=== PATIENT | male | born 1995 | race African-American/Black ===

== ENCOUNTER 2017-07-08 12:05 | Emergency (ER) | payer OTHER ==
[2017-07-08 12:43] VITALS: BP 142/63; PULSE 78; RESP 18; TEMP 99
[2017-07-08] MEDS ORDERED: PROPARACAINE 0.5% OPHTH DROPS 15 ML BTL LEFT EYE STA (12:47)
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
== END 2017-07-08 13:33 | disposition home or self-care (01) ==
LOC: EC 12:05
DX: H20.9 Unspecified iridocyclitis (principal); F17.200 Nicotine dependence, unspecified, uncomplicated
CPT/HCPCS: 99283

== ENCOUNTER 2018-12-10 19:39 | Inpatient (IN) | payer OTHER ==
[2018-12-10] MEDS ORDERED: SODIUM CHLORIDE 0.9% 500 ML 500 ML IV STA (19:41)
[2018-12-10] MEDS ORDERED: SODIUM CHLORIDE 0.9% 1,000 ML IV STA ×2 (19:41)
[2018-12-10] MEDS ORDERED: LORazepam 2 MG/ML INJ IV STA (19:41)
--- NOTE | 2018-12-10 19:50 | ED ---
Seizure HPI - General Chief Complaint: Seizure Stated Complaint: Seizure, Alcohol Time Seen by Provider: 12/10/18 19:39 Source: patient, EMS, RN notes reviewed Mode of arrival: EMS Limitations: no limitations - History of Present Illness Initial Comments: This is a 23-year-old male with a history of alcoholism since age of age 11 who apparently had a witnessed seizure today lasting 5-10 minutes. He did hit his head against a wall he did bite his tongue he was initially confused upon first contact with paramedics. He has become more cognizant since arrival here per paramedics. He does drink 4-5 beers cc per day he does state he has nausea right now he states when he stops drinking he gets really nauseated and then when he starts to get it goes away. He states he's never had a seizure before. This a glucose 131 this will blood pressure 135/84. He is awake alert and oriented except he does not currently know the year. He has a drug use. MD Complaint: seizure - Related Data Home Medications Medication Instructions Recorded Confirmed No Known Home Medications 12/10/18 12/10/18 Allergies Allergy/AdvReac Type Severity Reaction Status Date / Time No Known Allergies Allergy Verified 12/10/18 19:59 Review of Systems ROS Statement: Those systems with pertinent positive or pertinent negative responses have been documented in the HPI. ROS Other: All systems not noted in ROS Statement are negative. Past Medical History Past Medical History: No Reported History History of Any Multi-Drug Resistant Organisms: None Reported Past Surgical History: No Surgical Hx Reported Past Psychological History: No Psychological Hx Reported Smoking Status: Current some day smoker Past Alcohol Use History: Heavy Past Drug Use History: None Reported General Exam - General Exam Comments Initial Comments: This a well-developed well-nourished awake alert male he does have a cervical collar in place Limitations: no limitations General appearance: alert, anxious Head exam: Present: atraumatic, normocephalic, normal inspection Eye exam: Present: normal appearance, PERRL, EOMI. Absent: scleral icterus, conjunctival injection, periorbital swelling ENT exam: Present: mucous membranes dry (He does have evidence of abrasions to the tip of his tongue.), mucous membranes moist Neck exam: Present: normal inspection, other (Cervical collar place no tenderness palpation). Absent: tenderness, meningismus, lymphadenopathy Respiratory exam: Present: normal lung sounds bilaterally. Absent: respiratory distress, wheezes, rales, rhonchi, stridor Cardiovascular Exam: Present: regular rate, normal rhythm, normal heart sounds. Absent: systolic murmur, diastolic murmur, rubs, gallop, clicks GI/Abdominal exam: Present: soft, normal bowel sounds. Absent: distended, tenderness, guarding, rebound, rigid Extremities exam: Present: normal inspection, full ROM, normal capillary refill. Absent: tenderness, pedal edema, joint swelling, calf tenderness Back exam: Present: normal inspection Neurological exam: Present: alert, oriented X3, CN II-XII intact, other (Him tremor noted). Absent: motor sensory deficit Psychiatric exam: Present: normal affect, normal mood Skin exam: Present: warm, dry, intact, normal color. Absent: rash Course Vital Signs 12/10/18 12/10/18 12/10/18 19:41 20:10 21:24 Temperature 97.8 F Pulse Rate 68 63 72 Respiratory 16 16 Rate Blood Pressure 132/84 112/73 O2 Sat by Pulse 100 100 100 Oximetry 12/10/18 22:11 Temperature Pulse Rate 78 Respiratory 16 Rate Blood Pressure 114/80 O2 Sat by Pulse 99 Oximetry Medical Decision Making - Medical Decision Making I did review the findings with the patient I did reevaluate him on several occasions he still demonstrate some tremors he will be admitted for alcohol withdrawal. I did discuss case with Dr. Kamara - Lab Data Result diagrams: 12/10/18 19:45 12/10/18 19:45 Lab Results 12/10/18 12/10/18 12/10/18 Range/Units 19:45 19:45 20:53 WBC 7.9 (3.8-10.6) k/uL RBC 4.12 L (4.30-5.90) m/uL Hgb 14.1 (13.0-17.5) gm/dL Hct 45.2 (39.0-53.0) % MCV 109.7 H (80.0-100.0) fL MCH 34.4 (25.0-35.0) pg MCHC 31.3 (31.0-37.0) g/dL RDW 12.3 (11.5-15.5) % Plt Count 142 L (150-450) k/uL Neutrophils % 68 % Lymphocytes % 21 % Monocytes % 7 % Eosinophils % 1 % Basophils % 1 % Neutrophils # 5.3 (1.3-7.7) k/uL Lymphocytes # 1.7 (1.0-4.8) k/uL Monocytes # 0.5 (0-1.0) k/uL Eosinophils # 0.1 (0-0.7) k/uL Basophils # 0.1 (0-0.2) k/uL Macrocytosis Moderate Sodium 139 (137-145) mmol/L Potassium 3.7 (3.5-5.1) mmol/L Chloride 98 (98-107) mmol/L Carbon Dioxide 17 L (22-30) mmol/L Anion Gap 24 mmol/L BUN 4 L (9-20) mg/dL Creatinine 0.75 (0.66-1.25) mg/dL Est GFR (CKD-EPI)AfAm >90 (>60 ml/min/1.73 sqM) Est GFR (CKD-EPI)NonAf >90 (>60 ml/min/1.73 sqM) Glucose 153 H (74-99) mg/dL Calcium 10.4 H (8.4-10.2) mg/dL Phosphorus 3.9 (2.5-4.5) mg/dL Magnesium 2.0 (1.6-2.3) mg/dL Total Bilirubin 1.0 (0.2-1.3) mg/dL AST 174 H (17-59) U/L ALT 107 H (21-72) U/L Alkaline Phosphatase 120 (38-126) U/L Total Protein 8.7 H (6.3-8.2) g/dL Albumin 5.5 H (3.5-5.0) g/dL Urine Color Yellow Urine Appearance Clear (Clear) Urine pH 7.0 (5.0-8.0) Ur Specific [place] 1.017 (1.001-1.035) Urine Protein 2+ H (Negative) Urine Glucose (UA) Negative (Negative) Urine Ketones 2+ H (Negative) Urine Blood Trace H (Negative) Urine Nitrite Negative (Negative) Urine Bilirubin Negative (Negative) Urine Urobilinogen 2.0 (<2.0) mg/dL Ur Leukocyte Esterase Negative (Negative) Urine RBC <1 (0-5) /hpf Urine WBC 1 (0-5) /hpf Urine Mucus Rare H (None) /hpf Salicylates <1.0 mg/dL Urine Opiates Screen Not Detected (NotDetected) Ur Oxycodone Screen Not Detected (NotDetected) Urine Methadone Screen Not Detected (NotDetected) Ur Propoxyphene Screen Not Detected (NotDetected) Acetaminophen <10.0 ug/mL Ur Barbiturates Screen Not Detected (NotDetected) U Tricyclic Antidepress Not Detected (NotDetected) Ur Phencyclidine Scrn Not Detected (NotDetected) Ur Amphetamines Screen Not Detected (NotDetected) U Methamphetamines Scrn Not Detected (NotDetected) U Benzodiazepines Scrn Not Detected (NotDetected) Urine Cocaine Screen Not Detected (NotDetected) U Marijuana (THC) Screen Not Detected (NotDetected) - EKG Data -: EKG Interpreted by Me (E[place] 41119 QRS duration 88 QT since QTC 434/451 LV) - Radiology Data Radiology results: report reviewed (I did review the imaging and report no acute findings.), image reviewed Disposition Clinical Impression: Alcohol withdrawal seizure, Abrasion of tongue Disposition: ADMITTED IP TO THIS [facility] Condition: Stable Referrals: Fred Richardson MD [Primary Care Provider] - 1-2 days
[2018-12-10 20:24] LABS: ALT 107 U/L (21-72); Acetaminophen <10.0 ug/mL; Albumin 5.5 g/dL (3.5-5.0); Alkaline Phosphatase 120 U/L (38-126); Anion Gap 24 mmol/L; Blood Urea Nitrogen 4 mg/dL (9-20); Calcium 10.4 mg/dL (8.4-10.2); Carbon Dioxide 17 mmol/L (22-30); Chloride 98 mmol/L (98-107); Glucose 153 mg/dL (74-99); Phosphorus 3.9 mg/dL (2.5-4.5); Potassium 3.7 mmol/L (3.5-5.1); Salicylate <1.0 mg/dL; Sodium 139 mmol/L (137-145); Total Protein 8.7 g/dL (6.3-8.2)
[2018-12-10 20:30] LABS: AST 174 U/L (17-59)
[2018-12-10 20:41] LABS: Basophils # (A) 0.1 k/uL (0-0.2); Basophils % (A) 1 %; Eosinophils # (A) 0.1 k/uL (0-0.7); Eosinophils % (A) 1 %; HCT 45.2 % (39.0-53.0); HGB 14.1 gm/dL (13.0-17.5); Lymphocytes # (A) 1.7 k/uL (1.0-4.8); Lymphocytes % (A) 21 %; MCH 34.4 pg (25.0-35.0); MCHC 31.3 g/dL (31.0-37.0); MCV 109.7 fL (80.0-100.0); Macrocytosis Moderate; Mean Platelet Volume 8.4; Monocytes # (A) 0.5 k/uL (0-1.0); Monocytes % (A) 7 %; Neutrophils # (A) 5.3 k/uL (1.3-7.7); Neutrophils % (A) 68 %; Platelet Count 142 k/uL (150-450); RBC 4.12 m/uL (4.30-5.90); RDW 12.3 % (11.5-15.5); WBC 7.9 k/uL (3.8-10.6)
--- NOTE | 2018-12-10 21:15 | CT ---
EXAMINATION TYPE: CT brain guillermina ayers con DATE OF EXAM: 12/10/2018 COMPARISON: None HISTORY: seizure CT DLP: 1225.1 mGycm Automated exposure control for dose reduction was used. TECHNIQUE: CT scan of the head and cervical spine are performed without contrast. FINDINGS: Ventricles and sulci appear normal. There is no mass effect nor midline shift. There is n o sign of intracranial hemorrhage. The calvarium is intact. There is no evidence of cerebral edema. The cervical vertebra have fairly normal spacing and alignment. Posterior elements are intact. Prever tebral soft tissues appear normal. Skull base is intact. Facet joints are intact. IMPRESSION: Negative CT scan of the brain. Negative CT scan cervical spine.
[2018-12-10 21:18] LABS: Appearance,Urine Clear (Clear); Bilirubin,Urine Negative (Negative); Blood,Urine Trace (Negative); Color,Urine Yellow; Glucose,Urine (UA) Negative (Negative); Ketones,Urine 2+ (Negative); Leukocyte Esterase,Urine Negative (Negative); Mucus,Urine Rare /hpf; Nitrite,Urine Negative (Negative); Protein,Urine 2+ (Negative); RBC,Urine <1 /hpf (0-5); Specific Gravity,Urine 1.017 (1.001-1.035); WBC,Urine 1 /hpf (0-5)
[2018-12-10 21:23] LABS: Amphetamine Screen,Urine Not Detected (NotDetected); Barbiturate Screen,Urine Not Detected (NotDetected); Benzodiazepines Screen,Urine Not Detected (NotDetected); Cocaine Screen,Urine Not Detected (NotDetected); Methadone Screen, Urine Not Detected (NotDetected); Opiate Screen,Urine Not Detected (NotDetected); Oxycodone Screen, Urine Not Detected (NotDetected); Phencyclidine Screen,Urine Not Detected (NotDetected); Tricyclic Antidepressant,Urine Not Detected (NotDetected); Urn Cannabinoid Scrn Not Detected (NotDetected)
[2018-12-10] MEDS ORDERED: ONDANSETRON 4 MG/2 ML VIAL IVP PRN (22:38)
[2018-12-10] MEDS ORDERED: NALOXONE 0.4 MG/ML 1 ML VIAL IV PRN (22:38)
[2018-12-10] MEDS ORDERED: LORazepam 2 MG/ML INJ IV PRN ×2 (22:40)
[2018-12-10] MEDS ORDERED: THIAMINE 100 MG/ML 2 ML VIAL IM STA (22:40)
[2018-12-10] MEDS: THIAMINE 100 MG TAB PO SCH (23:30)
[2018-12-11 00:17] VITALS: BMI 21.4
[2018-12-11] MEDS: LORazepam 2 MG/ML INJ IV PRN ×3 (00:17→23:19)
[2018-12-11] MEDS: SODIUM CHLORIDE 0.9% 1,000 ML IV SCH ×2 (00:20→20:22)
[2018-12-11] MEDS: ACETAMINOPHEN TAB 325 MG TAB PO PRN ×2 (03:25→13:17)
[2018-12-11] MEDS ORDERED: SODIUM CHLORIDE 0.9% 1,000 ML with MVI, ADULT NO.4 WITH VIT K 10 ML, THIAMINE 100 MG, F... IV ONE ×4 (12:06)
[2018-12-11] MEDS ORDERED: LORazepam 2 MG/ML INJ IV PRN (12:07)
--- NOTE | 2018-12-11 12:14 | P.HPIM ---
History of Present Illness This is a pleasant 23 years old male with no significant past medical history who presents as of seizure. Patient states that he drinks about 4-7 beers a day and he was trying to quit last couple days. And each time he got LOC shakiness and become uncomfortable. Yesterday he would develop a seizure, witnessed by his girlfriend which states it was generalized tonic-clonic seizures lasted about 5-10 minutes and followed by post ictal confusion. During which time the patient bit his tongue on the right side but with no urine or bowel incontinence. Patient states also he smokes about 3 cigarettes per day and he wants to quit after counseling him wanting nicotine patch. He denies using's other substances like no marijuana, cocaine on her weaning. However he agrees to give urine sample for urine drug screen. After the seizure patient has left shoulder pain without numbness or weakness in his left upper extremity and pulsation is intact. Patient could raise his left arm above his shoulder however he has tenderness in the right shoulder area, with no apparent deformity. On admission he had negative computed tomography scan of the brain and the cervical spine for acute event as per radiology report. EKG: Normal sinus rhythm at 65. CBC and BMP were unremarkable. Mildly elevated liver enzymes. She denies history of seizure, and his never been on antiseizure medication. Patient states that he has mild depression, without suicidal or homicidal ideation. No hallucination. Also patient denies chest pain or dyspnea Review of Systems CONSTITUTIONAL: No fever, no malaise, no fatigue. HEENT: No recent visual problems or hearing problems. Denied any sore throat. CARDIOVASCULAR: No orthopnea, PND, no palpitations, no syncope. PULMONARY: No shortness of breath, no cough, no hemoptysis. GASTROINTESTINAL: No diarrhea, no nausea, no vomiting, no abdominal pain. Normoactive bowel sounds. NEUROLOGICAL: No headaches, no weakness, no numbness. HEMATOLOGICAL: Denies any bleeding or petechiae. GENITOURINARY: Denies any burning micturition, frequency, or urgency. MUSCULOSKELETAL/RHEUMATOLOGICAL: Denies any joint pain, swelling, or any muscle pain. ENDOCRINE: Denies any polyuria or polydipsia. Past Medical History Past Medical History: No Reported History History of Any Multi-Drug Resistant Organisms: None Reported Past Surgical History: No Surgical Hx Reported Past Anesthesia/Blood Transfusion Reactions: No Reported Reaction Past Psychological History: No Psychological Hx Reported Smoking Status: Current some day smoker Past Alcohol Use History: Heavy Past Drug Use History: None Reported Medications and Allergies Home Medications Medication Instructions Recorded Confirmed Type No Known Home Medications 12/10/18 12/10/18 History Allergies Allergy/AdvReac Type Severity Reaction Status Date / Time No Known Allergies Allergy Verified 12/10/18 19:59 Physical Exam Vitals: Vital Signs Temp Pulse Pulse Resp BP BP Pulse Ox 12/11/18 11:19 90 18 129/70 99 12/11/18 08:10 98.4 F 78 16 109/68 100 12/11/18 03:50 87 18 12/11/18 03:49 98.6 F 87 18 121/67 99 12/11/18 00:07 99.5 F 78 18 133/87 99 12/11/18 00:00 78 18 12/10/18 22:11 78 16 114/80 99 12/10/18 21:24 72 16 112/73 100 12/10/18 20:10 63 100 12/10/18 19:41 97.8 F 68 16 132/84 100 Intake and Output 12/10/18 12/11/18 12/11/18 22:59 06:59 14:59 Intake Total 80 120 Balance 80 120 Intake: IV 80 0.9 80 Oral 120 Other: Voiding Method Toilet Toilet # Voids 2 Weight 56.699 kg 52.1 kg GENERAL: The patient is alert and oriented x3, not in any acute distress. Well developed, well nourished. HEENT: Pupils are round and equally reacting to light. EOMI. No scleral icterus. No conjunctival pallor. Normocephalic, atraumatic. No pharyngeal erythema. No thyromegaly. CARDIOVASCULAR: S1 and S2 present. No murmurs, rubs, or gallops. PULMONARY: Chest is clear to auscultation, no wheezing or crackles. ABDOMEN: Soft, nontender, nondistended, normoactive bowel sounds. No palpable organomegaly. MUSCULOSKELETAL: No joint swelling or deformity. EXTREMITIES: No cyanosis, clubbing, or pedal edema. NEUROLOGICAL: Gross neurological examination did not reveal any focal deficits. SKIN: No rashes. Results CBC & Chem 7: 12/10/18 19:45 12/10/18 19:45 Labs: Abnormal Lab Results - Last 24 Hours (Table) 12/10/18 12/10/18 12/10/18 Range/Units 19:45 19:45 20:53 RBC 4.12 L (4.30-5.90) m/uL MCV 109.7 H (80.0-100.0) fL Plt Count 142 L (150-450) k/uL Carbon Dioxide 17 L (22-30) mmol/L BUN 4 L (9-20) mg/dL Glucose 153 H (74-99) mg/dL Calcium 10.4 H (8.4-10.2) mg/dL AST 174 H (17-59) U/L ALT 107 H (21-72) U/L Total Protein 8.7 H (6.3-8.2) g/dL Albumin 5.5 H (3.5-5.0) g/dL Urine Protein 2+ H (Negative) Urine Ketones 2+ H (Negative) Urine Blood Trace H (Negative) Urine Mucus Rare H (None) /hpf Thrombosis Risk Factor Assmnt - Choose All That Apply Any of the Below Risk Factors Present?: No Other Risk Factors: No Other congenital or acquired thrombophilia - If yes, enter type in comment: No Thrombosis Risk Factor Assessment Level: Very Low Risk Assessment and Plan Assessment: Alcohol withdrawal Alcohol abuse Seizure, mostly related to his withdrawal from alcohol Current cigarette smoker Left shoulder pain Dehydration Plan: This is a pleasant 23 years old male who presents because of a local withdrawal with alcohol withdrawal seizure. for His seizure management No need for a EGD as its related mostly to alcohol withdrawal. Start Neurontin. Continue with CIWA protocol. Ativan when necessary for anxiety or seizure. We'll check a shoulder x-ray on the left side. Urine drug screen. Banana bag. Patient was counseled about drinking and smoking and he agrees to quit. Psych consult. Labs and medication were reviewed.. Continue same treatment. Continue with symptomatic treatment. Resume home medication. Monitor lytes and vitals. DVT and GI prophylaxis. Further recommendations of the clinical course of the patient DVT prophylaxis: Subcutaneous heparin GI Prophylaxis: Pepcid Prognosis is guarded
[2018-12-11] MEDS ORDERED: GABAPENTIN 100 MG CAP PO SCH (12:15)
[2018-12-11] MEDS: THIAMINE 100 MG TAB PO SCH ×2 (13:17→17:56)
[2018-12-11] MEDS: NICOTINE 7MG/24HR PATCH TRANSDERM SCH (13:18)
[2018-12-11] MEDS: GABAPENTIN 100 MG CAP PO SCH ×2 (13:19→20:21)
--- NOTE | 2018-12-11 13:43 | XR ---
EXAMINATION TYPE: XR shoulder complete LT DATE OF EXAM: 12/11/2018 CLINICAL HISTORY: Left shoulder pain after fall and seizure. TECHNIQUE: Three views of the left shoulder are obtained. COMPARISON: None. FINDINGS: There is no acute fracture/dislocation evident in the left shoulder. The acromioclavicula r and glenohumeral joint spaces appear within normal limits. The visualized ribs are intact and unre markable. IMPRESSION: There is no acute fracture or dislocation in the left shoulder.
--- NOTE | 2018-12-11 15:33 | P.CN ---
Psychiatric Consult - . Consult date: 12/11/18 Consult:: Alcoholism and depression currently on no medications 12/11/18 13:34 Assessment and Plan Assessment: This is a pleasant 23 years old male with no significant past medical history who presents as of seizure. Patient states that he drinks about 4-7 beers a day and he was trying to quit last couple days. And each time he got LOC shakiness and become uncomfortable. Yesterday he would develop a seizure, witnessed by his girlfriend which states it was generalized tonic-clonic seizures lasted about 5-10 minutes and followed by post ictal confusion. During which time the patient bit his tongue on the right side but with no urine or bowel incontinence. Patient states also he smokes about 3 cigarettes per day and he wants to quit after counseling him wanting nicotine patch. He denies using's other substances like no marijuana, cocaine on her weaning. However he agrees to give urine sample for urine drug screen. After the seizure patient has left shoulder pain without numbness or weakness in his left upper extremity and pulsation is intact. Patient could raise his left arm above his shoulder however he has tenderness in the right shoulder area, with no apparent deformity. On admission he had negative computed tomography scan of the brain and the cervical spine for acute event as per radiology report. EKG: Normal sinus rhythm at 65. CBC and BMP were unremarkable. Mildly elevated liver enzymes. She denies history of seizure, and his never been on antiseizure medication. Patient states that he has mild depression, without suicidal or homicidal ideation. No hallucination. Also patient denies chest pain or dyspnea Past Medical History Past Medical History: No Reported History History of Any Multi-Drug Resistant Organisms: None Reported Past Surgical History: No Surgical Hx Reported Past Anesthesia/Blood Transfusion Reactions: No Reported Reaction Past Psychological History: No Psychological Hx Reported Smoking Status: Current some day smoker Past Alcohol Use History: Heavy Past Drug Use History: None Reported Medications and Allergies Home Medications Medication Instructions Recorded Confirmed Type No Known Home Medications 12/10/18 12/10/18 History Allergies Allergy/AdvReac Type Severity Reaction Status Date / Time No Known Allergies Allergy Verified 12/10/18 19:59 Mental Status Examination - The patient presents alert, pleasant, and cooperative. There calmly seated without any agitated behavior. [He] reports that [his] mood is good. Affect is congruent and euthymic. [He] deny having any suicidal or homicidal ideation intent or plan. [He] denies any auditory or visual hallucinations. There is no evidence of any delusional thought content. [His] thought process is linear and goal-directed. [His] speech is fluent and nonpressured. [His] memory and concentration is grossly intact for the purposes of this session. Psychiatric impression: Alcohol use disorder severe with alcohol seizure Psychiatric recommendation:AA meetings however I would highly recommend due to his extreme alcohol use disorder he would benefit from either [place] or Valentines dual diagnosis. He has have some history of depression but it's not severe in nature and obscured from. the alcohol use disorder. He does not need psychiatric inpatient care. Thank you for the consult Jake Adams D.O. PhD (1) Alcohol use disorder, severe, dependence Current Visit: Yes Status: Acute Priority: High Code(s): F10.20 - ALCOHOL DEPENDENCE, UNCOMPLICATED SNOMED Code(s): 133041334 (2) Alcohol withdrawal seizure Current Visit: Yes Status: Acute Priority: Low Code(s): F10.239 - ALCOHOL DEPENDENCE WITH WITHDRAWAL, UNSPECIFIED; R56.9 - UNSPECIFIED CONVULSIONS SNOMED Code(s): 913918833
[2018-12-12 07:09] LABS: Basophils % (A) 1 %; Eosinophils # (A) 0.2 k/uL (0-0.7); Eosinophils % (A) 3 %; HCT 39.8 % (39.0-53.0); HGB 12.4 gm/dL (13.0-17.5); Lymphocytes % (A) 14 %; MCH 33.1 pg (25.0-35.0); MCV 106.5 fL (80.0-100.0); Macrocytosis Slight; Mean Platelet Volume 8.5; Monocytes # (A) 0.5 k/uL (0-1.0); Monocytes % (A) 6 %; Neutrophils # (A) 5.4 k/uL (1.3-7.7); Neutrophils % (A) 75 %; Platelet Count 119 k/uL (150-450); RBC 3.74 m/uL (4.30-5.90); RDW 12.4 % (11.5-15.5); WBC 7.2 k/uL (3.8-10.6)
[2018-12-12 07:31] LABS: ALT 74 U/L (21-72); AST 91 U/L (17-59); Albumin 4.2 g/dL (3.5-5.0); Alkaline Phosphatase 118 U/L (38-126); Anion Gap 9 mmol/L; Blood Urea Nitrogen 5 mg/dL (9-20); Calcium 9.5 mg/dL (8.4-10.2); Carbon Dioxide 27 mmol/L (22-30); Chloride 104 mmol/L (98-107); Glucose 95 mg/dL (74-99); Potassium 3.4 mmol/L (3.5-5.1); Sodium 140 mmol/L (137-145); Total Bilirubin 0.8 mg/dL (0.2-1.3); Total Protein 7.1 g/dL (6.3-8.2)
[2018-12-12] MEDS ORDERED: Potassium Replacement Protocol 1 EACH MISC MISCELLANE PRN (09:04)
[2018-12-12] MEDS ORDERED: Magnesium Replacement Protocol 1 EACH MISC MISCELLANE PRN (09:04)
[2018-12-12] MEDS: POTASSIUM CHLORIDE ER 20 MEQ TAB.ER PO SCH ×2 (09:13→11:25)
[2018-12-12] MEDS: GABAPENTIN 100 MG CAP PO SCH ×2 (09:13→20:49)
[2018-12-12] MEDS: LORazepam 2 MG/ML INJ IV PRN (09:13)
[2018-12-12] MEDS: NICOTINE 7MG/24HR PATCH TRANSDERM SCH (09:14)
--- NOTE | 2018-12-12 10:12 | P.PN ---
Subjective This is a pleasant 23 years old male with no significant past medical history who presents as of seizure. Patient states that he drinks about 4-7 beers a day and he was trying to quit last couple days. And each time he got LOC shakiness and become uncomfortable. Yesterday he would develop a seizure, witnessed by his girlfriend which states it was generalized tonic-clonic seizures lasted about 5-10 minutes and followed by post ictal confusion. During which time the patient bit his tongue on the right side but with no urine or bowel incontinence. Patient states also he smokes about 3 cigarettes per day and he wants to quit after counseling him wanting nicotine patch. He denies using's other substances like no marijuana, cocaine on her weaning. However he agrees to give urine sample for urine drug screen. After the seizure patient has left shoulder pain without numbness or weakness in his left upper extremity and pulsation is intact. Patient could raise his left arm above his shoulder however he has tenderness in the right shoulder area, with no apparent deformity. On admission he had negative computed tomography scan of the brain and the cervical spine for acute event as per radiology report. EKG: Normal sinus rhythm at 65. CBC and BMP were unremarkable. Mildly elevated liver enzymes. She denies history of seizure, and his never been on antiseizure medication. Patient states that he has mild depression, without suicidal or homicidal ideation. No hallucination. Also patient denies chest pain or dyspnea 12/12/2018 Patient was lying in bed not in distress. He was given Ativan impression MrJoanna henriquez. However this morning he was significant shakiness in his upper extremity and he feels anxious. His CIWA score ranging between 5-8, and was 8 this morning. Still have pain in his left shoulder however x-rays came back negative able to move his arm above his head. Psychiatrist evaluated the patient and recommended for the patient for outpatient Alcoholics Anonymous meeting, but mainly either [place] or [place] referral. Discussed with the patient and his will and to try these options. We are going to consult case management/social sciences research scientist abnormal electrolytes being replaced Objective - Vital Signs Vital signs: Vital Signs Temp 98.6 F 12/12/18 04:00 Pulse 87 12/12/18 04:00 Resp 18 12/12/18 04:00 BP 124/75 12/12/18 04:00 Pulse Ox 99 12/12/18 04:00 Intake & Output 12/11/18 12/12/18 12/12/18 18:59 06:59 18:59 Intake Total 680 1300 120 Balance 680 1300 120 Weight 51.7 kg Intake: IV 300 0.9 300 Intake, IV Titration 200 1000 Amount Sodium Chloride 0.9% 1, 200 1000 000 ml @ 100 mls/hr IV . Q10H7M ONE with Mvi, Adult No.4 with Vit K 10 ml with Thiamine 100 mg with Folic Acid 1 mg Rx#: [id number] Oral 480 120 Other: Voiding Method Toilet Toilet # Voids 2 1 - Exam GENERAL: The patient is alert and oriented x3, not in any acute distress. Well developed, well nourished. HEENT: Pupils are round and equally reacting to light. EOMI. No scleral icterus. No conjunctival pallor. Normocephalic, atraumatic. No pharyngeal erythema. No thyromegaly. CARDIOVASCULAR: S1 and S2 present. No murmurs, rubs, or gallops. PULMONARY: Chest is clear to auscultation, no wheezing or crackles. ABDOMEN: Soft, nontender, nondistended, normoactive bowel sounds. No palpable organomegaly. MUSCULOSKELETAL: No joint swelling or deformity. EXTREMITIES: No cyanosis, clubbing, or pedal edema. NEUROLOGICAL: Gross neurological examination did not reveal any focal deficits. SKIN: No rashes. - Labs CBC & Chem 7: 12/12/18 06:16 12/12/18 06:16 Labs: Abnormal Lab Results - Last 24 Hours (Table) 12/12/18 12/12/18 Range/Units 06:16 06:16 RBC 3.74 L (4.30-5.90) m/uL Hgb 12.4 L (13.0-17.5) gm/dL MCV 106.5 H (80.0-100.0) fL Plt Count 119 L (150-450) k/uL Potassium 3.4 L (3.5-5.1) mmol/L BUN 5 L (9-20) mg/dL Creatinine 0.57 L (0.66-1.25) mg/dL AST 91 H (17-59) U/L ALT 74 H (21-72) U/L Assessment and Plan Assessment: Alcohol withdrawal Alcohol abuse Seizure, mostly related to his withdrawal from alcohol Current cigarette smoker Left shoulder pain Dehydration Plan: This is a pleasant 23 years old male who presents because of a local withdrawal with alcohol withdrawal seizure. for His seizure management No need for a EGD as its related mostly to alcohol withdrawal. Start Neurontin. Continue with CIWA protocol. Ativan when necessary for anxiety or seizure. We'll check a shoulder x-ray on the left side. Urine drug screen. Banana bag. Patient was counseled about drinking and smoking and he agrees to quit. Psych consult. Labs and medication were reviewed.. Continue same treatment. Continue with symptomatic treatment. Resume home medication. Monitor lytes and vitals. DVT and GI prophylaxis. Further recommendations of the clinical course of the patient DVT prophylaxis: Subcutaneous heparin GI Prophylaxis: Pepcid Prognosis is guarded
[2018-12-12] MEDS: FOLIC ACID 1 MG TAB PO SCH (11:25)
[2018-12-12] MEDS: MULTIVITAMINS, THERA 1 EACH TAB PO SCH (11:25)
[2018-12-12] MEDS: MAGNESIUM SULFATE-D5W PMX 1 GM in DEXTROSE/WATER 1 100ML.BAG IVPB SCH ×2 (11:25→13:15)
[2018-12-12] MEDS: THIAMINE 100 MG TAB PO SCH ×2 (11:30→18:46)
[2018-12-12 22:00] VITALS: RESP 17
[2018-12-12] MEDS: SODIUM CHLORIDE 0.9% 1,000 ML IV SCH (22:12)
[2018-12-12] MEDS: ACETAMINOPHEN TAB 325 MG TAB PO PRN (23:14)
[2018-12-13 06:55] LABS: Basophils # (A) 0.1 k/uL (0-0.2); Basophils % (A) 1 %; Eosinophils # (A) 0.2 k/uL (0-0.7); Eosinophils % (A) 3 %; HGB 13.2 gm/dL (13.0-17.5); Lymphocytes # (A) 1.3 k/uL (1.0-4.8); Lymphocytes % (A) 16 %; MCH 33.3 pg (25.0-35.0); MCHC 30.7 g/dL (31.0-37.0); MCV 108.5 fL (80.0-100.0); Macrocytosis Moderate; Mean Platelet Volume 8.2; Monocytes # (A) 0.7 k/uL (0-1.0); Monocytes % (A) 8 %; Neutrophils # (A) 5.8 k/uL (1.3-7.7); Neutrophils % (A) 70 %; Platelet Count 129 k/uL (150-450); RBC 3.96 m/uL (4.30-5.90); RDW 12.4 % (11.5-15.5); WBC 8.3 k/uL (3.8-10.6)
[2018-12-13 07:14] LABS: Anion Gap 7 mmol/L; Blood Urea Nitrogen 6 mg/dL (9-20); Calcium 9.8 mg/dL (8.4-10.2); Carbon Dioxide 28 mmol/L (22-30); Chloride 103 mmol/L (98-107); Glucose 96 mg/dL (74-99); Magnesium 2.1 mg/dL (1.6-2.3); Potassium 4.1 mmol/L (3.5-5.1); Sodium 138 mmol/L (137-145)
[2018-12-13] MEDS: NICOTINE 7MG/24HR PATCH TRANSDERM SCH (09:37)
[2018-12-13] MEDS: GABAPENTIN 100 MG CAP PO SCH (09:42)
[2018-12-13 10:50] VITALS: TEMP 96.5
[2018-12-13] MEDS: FOLIC ACID 1 MG TAB PO SCH (11:59)
[2018-12-13] MEDS: THIAMINE 100 MG TAB PO SCH (11:59)
[2018-12-13] MEDS: MULTIVITAMINS, THERA 1 EACH TAB PO SCH (11:59)
[2018-12-13 15:45] VITALS: BP 123/69; PULSE 86
--- NOTE | 2018-12-14 07:27 | DS ---
DISCHARGE SUMMARY DATE OF SERVICE: 12/13/2018 FINAL DIAGNOSES: 1. Alcohol withdrawal. 2. Alcohol abuse. 3. History of seizure disorder secondary to alcohol withdrawal. 5. Left shoulder pain. 6. Dehydration. DISCHARGE DISPOSITION: The patient will be discharged in stable condition with guarded prognosis. HISTORY OF PRESENT ILLNESS: This is a 23-year-old gentleman with a past medical history of multiple medical problems admitted with alcoholism and alcohol induced seizure. symptomatic. Patient improved significantly. Rehab is recommended. Psychiatry saw the patient. On exam vitals are stable. CARDIOVASCULAR: S1, S2 muffled. ABDOMEN: Soft. NERVOUS SYSTEM: No focal deficits. The discharge advice and medications are: 1. Folic acid 1 mg daily. 2. Neurontin 100 mg p.o. b.i.d. 3. Ativan 0.5 mg t.i.d. p.r.n. 4. Multivitamins 1 p.o. daily. 5. Habitrol 7 daily. 6. Vitamin B1, 100 mg p.o. daily. Follow with alcohol rehab. Once again, the patient will be discharged in stable condition with guarded prognosis. MMODL / IJN: [id number] / MOOSE
== END 2018-12-13 14:46 | disposition home or self-care (01) | DRG 897 ==
LOC: EC 19:39 → 3SCARD 22:38
PROVIDERS: ADMIT Internal Medicine; ATTEND Internal Medicine
DX: F10.239 Alcohol dependence with withdrawal, unspecified (principal); G40.509 Epileptic seizures related to external causes, not intractable, without status epilepticus; E86.0 Dehydration; F17.210 Nicotine dependence, cigarettes, uncomplicated; F32.9 Major depressive disorder, single episode, unspecified; F41.9 Anxiety disorder, unspecified; S00.512A Abrasion of oral cavity, initial encounter; M25.512 Pain in left shoulder
CPT/HCPCS: 36415; 70450; 72125; 80048; 80053; 80306; 81001; 83520; 83735; 84100; 84132; 85025; 93005; 94760; 96361; 96372; 96374; 99285

== ENCOUNTER 2019-07-28 06:51 | Emergency (ER) | payer BC ==
[2019-07-28] MEDS ORDERED: SODIUM CHLORIDE 0.9% 1,000 ML IV STA (06:57)
[2019-07-28] MEDS ORDERED: LORazepam 2 MG/ML INJ IV STA (06:58)
[2019-07-28 07:03] VITALS: RESP 18
[2019-07-28 07:24] LABS: Basophils # (A) 0.1 k/uL (0-0.2); Basophils % (A) 1 %; Eosinophils # (A) 0.3 k/uL (0-0.7); Eosinophils % (A) 3 %; HCT 39.3 % (39.0-53.0); HGB 13.1 gm/dL (13.0-17.5); Lymphocytes # (A) 0.8 k/uL (1.0-4.8); Lymphocytes % (A) 8 %; MCH 34.5 pg (25.0-35.0); MCHC 33.2 g/dL (31.0-37.0); MCV 103.8 fL (80.0-100.0); Macrocytosis Slight; Mean Platelet Volume 8.6; Monocytes # (A) 0.5 k/uL (0-1.0); Monocytes % (A) 5 %; Neutrophils # (A) 8.1 k/uL (1.3-7.7); Neutrophils % (A) 82 %; Platelet Count 145 k/uL (150-450); RBC 3.78 m/uL (4.30-5.90); WBC 9.8 k/uL (3.8-10.6)
--- NOTE | 2019-07-28 07:25 | ED ---
General Adult HPI - General Stated complaint: Abd Pain, Fever Time Seen by Provider: 07/28/19 06:57 Source: patient, EMS, RN notes reviewed Mode of arrival: EMS - History of Present Illness Initial comments: 23-year-old male presents to the emergency department for a chief complaint of alcohol withdrawal. Patient states his last drink was yesterday evening. States he drinks 5 beers per day of 8% percent alcohol. States he has had withdrawals from alcohol before. Patient has some mild epigastric discomfort as well. Patient also complaining of a cough that started last night. Denies sore throat. Denies congestion.Patient has no other complaints at this time including shortness of breath, chest pain, abdominal pain, nausea or vomiting, headache, or visual changes. - Related Data Previous Rx's Medication Instructions Recorded Famotidine [Pepcid] 20 mg PO BID #20 tablet 07/28/19 Allergies Allergy/AdvReac Type Severity Reaction Status Date / Time No Known Allergies Allergy Verified 07/28/19 08:08 Review of Systems ROS Statement: Those systems with pertinent positive or pertinent negative responses have been documented in the HPI. ROS Other: All systems not noted in ROS Statement are negative. Past Medical History Past Medical History: No Reported History History of Any Multi-Drug Resistant Organisms: None Reported Past Surgical History: No Surgical Hx Reported Past Anesthesia/Blood Transfusion Reactions: No Reported Reaction Past Psychological History: No Psychological Hx Reported Smoking Status: Current some day smoker Past Alcohol Use History: Heavy Past Drug Use History: None Reported General Exam General appearance: alert, in no apparent distress, other (Tremors noted.) Head exam: Present: atraumatic, normocephalic, normal inspection Eye exam: Present: normal appearance, PERRL, EOMI. Absent: scleral icterus, conjunctival injection, periorbital swelling ENT exam: Present: normal exam, mucous membranes moist Neck exam: Present: normal inspection, full ROM. Absent: tenderness, meningismus, lymphadenopathy Respiratory exam: Present: normal lung sounds bilaterally. Absent: respiratory distress, wheezes, rales, rhonchi, stridor Cardiovascular Exam: Present: regular rate, normal rhythm, normal heart sounds. Absent: systolic murmur, diastolic murmur, rubs, gallop, clicks GI/Abdominal exam: Present: soft, normal bowel sounds. Absent: distended, tenderness (No significant tenderness noted in the abdomen), guarding, rebound, rigid Neurological exam: Present: alert Psychiatric exam: Present: normal affect, normal mood Course Vital Signs 07/28/19 06:58 Temperature 98.2 F Pulse Rate 77 Respiratory 18 Rate Blood Pressure 133/94 O2 Sat by Pulse 100 Oximetry Medical Decision Making - Medical Decision Making 23-year-old male presents for alcohol withdrawal. States he drinks 5 beers per day of a percent of all. States his last echo yesterday evening. States he's had withdraws from alcohol before. On presentation patient is noted to have tremors. Vitals are stable. CBC is unremarkable. CMP does show a mild transaminitis likely related to chronic alcohol consumption. Patient does have some evidence of dehydration as well as 1+ ketones, given a 1.5 liters of fluids here and a 500 mL bag by EMS. Lactic acid 3.0, likely secondary to dehydration. Magnesium is 1.3. Patient was given IV magnesium as well as oral magnesium. He was also given Ativan and fluids. Patient is feeling much better at this time. Patient will be discharged home with [facility] and will return if he has any worsening symptoms. - Lab Data Result diagrams: 07/28/19 07:12 07/28/19 07:12 Lab Results 07/28/19 07/28/19 07/28/19 Range/Units 07:12 07:12 07:12 WBC 9.8 (3.8-10.6) k/uL RBC 3.78 L (4.30-5.90) m/uL Hgb 13.1 (13.0-17.5) gm/dL Hct 39.3 (39.0-53.0) % MCV 103.8 H (80.0-100.0) fL MCH 34.5 (25.0-35.0) pg MCHC 33.2 (31.0-37.0) g/dL RDW 13.0 (11.5-15.5) % Plt Count 145 L (150-450) k/uL Neutrophils % 82 % Lymphocytes % 8 % Monocytes % 5 % Eosinophils % 3 % Basophils % 1 % Neutrophils # 8.1 H (1.3-7.7) k/uL Lymphocytes # 0.8 L (1.0-4.8) k/uL Monocytes # 0.5 (0-1.0) k/uL Eosinophils # 0.3 (0-0.7) k/uL Basophils # 0.1 (0-0.2) k/uL Macrocytosis Slight Sodium 140 (137-145) mmol/L Potassium 4.3 (3.5-5.1) mmol/L Chloride 103 (98-107) mmol/L Carbon Dioxide 24 (22-30) mmol/L Anion Gap 13 mmol/L BUN 7 L (9-20) mg/dL Creatinine 0.64 L (0.66-1.25) mg/dL Est GFR (CKD-EPI)AfAm >90 (>60 ml/min/1.73 sqM) Est GFR (CKD-EPI)NonAf >90 (>60 ml/min/1.73 sqM) Glucose 79 (74-99) mg/dL Plasma Lactic Acid Michael 3.0 H* (0.7-2.0) mmol/L Calcium 9.6 (8.4-10.2) mg/dL Magnesium 1.3 L (1.6-2.3) mg/dL Total Bilirubin 0.8 (0.2-1.3) mg/dL AST 250 H (17-59) U/L ALT 87 H (21-72) U/L Alkaline Phosphatase 120 (38-126) U/L Total Protein 8.1 (6.3-8.2) g/dL Albumin 4.6 (3.5-5.0) g/dL Urine Color Urine Appearance (Clear) Urine pH (5.0-8.0) Ur Specific [place] (1.001-1.035) Urine Protein (Negative) Urine Glucose (UA) (Negative) Urine Ketones (Negative) Urine Blood (Negative) Urine Nitrite (Negative) Urine Bilirubin (Negative) Urine Urobilinogen (<2.0) mg/dL Ur Leukocyte Esterase (Negative) Serum Alcohol 25 mg/dL 07/28/19 Range/Units 09:05 WBC (3.8-10.6) k/uL RBC (4.30-5.90) m/uL Hgb (13.0-17.5) gm/dL Hct (39.0-53.0) % MCV (80.0-100.0) fL MCH (25.0-35.0) pg MCHC (31.0-37.0) g/dL RDW (11.5-15.5) % Plt Count (150-450) k/uL Neutrophils % % Lymphocytes % % Monocytes % % Eosinophils % % Basophils % % Neutrophils # (1.3-7.7) k/uL Lymphocytes # (1.0-4.8) k/uL Monocytes # (0-1.0) k/uL Eosinophils # (0-0.7) k/uL Basophils # (0-0.2) k/uL Macrocytosis Sodium (137-145) mmol/L Potassium (3.5-5.1) mmol/L Chloride (98-107) mmol/L Carbon Dioxide (22-30) mmol/L Anion Gap mmol/L BUN (9-20) mg/dL Creatinine (0.66-1.25) mg/dL Est GFR (CKD-EPI)AfAm (>60 ml/min/1.73 sqM) Est GFR (CKD-EPI)NonAf (>60 ml/min/1.73 sqM) Glucose (74-99) mg/dL Plasma Lactic Acid Michael (0.7-2.0) mmol/L Calcium (8.4-10.2) mg/dL Magnesium (1.6-2.3) mg/dL Total Bilirubin (0.2-1.3) mg/dL AST (17-59) U/L ALT (21-72) U/L Alkaline Phosphatase (38-126) U/L Total Protein (6.3-8.2) g/dL Albumin (3.5-5.0) g/dL Urine Color Yellow Urine Appearance Clear (Clear) Urine pH 7.0 (5.0-8.0) Ur Specific [place] 1.016 (1.001-1.035) Urine Protein Negative (Negative) Urine Glucose (UA) Negative (Negative) Urine Ketones 1+ H (Negative) Urine Blood Negative (Negative) Urine Nitrite Negative (Negative) Urine Bilirubin Negative (Negative) Urine Urobilinogen <2.0 (<2.0) mg/dL Ur Leukocyte Esterase Negative (Negative) Serum Alcohol mg/dL Disposition Clinical Impression: Alcohol withdrawal Disposition: HOME SELF-CARE Condition: Good Instructions (If sedation given, give patient instructions): Alcohol Withdrawal (ED) Additional Instructions: Please take Pepcid as directed. Please take Zofran as needed for nausea. Fol low up with primary care in 1-2 days. Return to the emergency department if you've any worsening symptoms. Prescriptions: Famotidine [Pepcid] 20 mg PO BID #20 tablet Is patient prescribed a controlled substance at d/c from ED?: No Referrals: Fred Richardson MD [REFERRING] - 1-2 days Time of Disposition: 10:14
[2019-07-28 07:35] LABS: ALT 87 U/L (21-72); AST 250 U/L (17-59); African American GFR (CKD) >90 (>60 ml/min/1.73 sqM); Albumin 4.6 g/dL (3.5-5.0); Alcohol 25 mg/dL; Alkaline Phosphatase 120 U/L (38-126); Anion Gap 13 mmol/L; Blood Urea Nitrogen 7 mg/dL (9-20); Calcium 9.6 mg/dL (8.4-10.2); Carbon Dioxide 24 mmol/L (22-30); Chloride 103 mmol/L (98-107); Glucose 79 mg/dL (74-99); Magnesium 1.3 mg/dL (1.6-2.3); Potassium 4.3 mmol/L (3.5-5.1); Sodium 140 mmol/L (137-145); Total Bilirubin 0.8 mg/dL (0.2-1.3); Total Protein 8.1 g/dL (6.3-8.2)
[2019-07-28] MEDS ORDERED: ONDANSETRON 4 MG/2 ML VIAL IVP STA (07:41)
--- NOTE | 2019-07-28 08:00 | XR ---
EXAMINATION TYPE: XR chest 2V DATE OF EXAM: 07/28/2019 COMPARISON: NONE HISTORY: Chest pain and alcohol withdrawal TECHNIQUE: Frontal and lateral views of the chest are obtained. FINDINGS: There is no focal air space opacity, pleural effusion, or pneumothorax seen. Central Cuffing is present on the lateral view. The cardiac silhouette size is within normal limits. The os seous structures are intact. IMPRESSION: No acute cardiopulmonary process. Central peribronchial cuffing on the lateral view is p rominent and can be seen in reactive airway disease or less likely infectious airway disease given th is patient's primary complaint.
[2019-07-28] MEDS ORDERED: THIAMINE 100 MG/ML 2 ML VIAL IM STA (08:48)
[2019-07-28] MEDS ORDERED: LORazepam 2 MG/ML INJ IV PRN ×3 (08:48)
[2019-07-28 09:23] LABS: Appearance,Urine Clear (Clear); Bilirubin,Urine Negative (Negative); Blood,Urine Negative (Negative); Color,Urine Yellow; Glucose,Urine (UA) Negative (Negative); Ketones,Urine 1+ (Negative); Leukocyte Esterase,Urine Negative (Negative); Nitrite,Urine Negative (Negative); Protein,Urine Negative (Negative); Specific Gravity,Urine 1.016 (1.001-1.035); Urobilinogen,Urine <2.0 mg/dL (<2.0)
[2019-07-28] MEDS ORDERED: MAGNESIUM OXIDE 400 MG TAB PO STA (09:41)
[2019-07-28] MEDS ORDERED: FAMOTIDINE 20 MG/2 ML VIAL IV STA (09:41)
[2019-07-28] MEDS ORDERED: SODIUM CHLORIDE 0.9% 500 ML 500 ML IV STA (09:41)
[2019-07-28] MEDS ORDERED: MAGNESIUM SULFATE-D5W PMX 1 GM in DEXTROSE/WATER 1 100ML.BAG IVPB ONE (09:41)
[2019-07-28] MEDS ORDERED: ONDANSETRON 4 MG ODT STARTER PACK 2 TAB BTL PO STA (10:15)
[2019-07-28 11:49] VITALS: BP 131/70; PULSE 100; TEMP 98.4
[2019-07-28] MEDS ORDERED: THIAMINE 100 MG TAB PO SCH (17:30)
== END 2019-07-28 11:51 | disposition home or self-care (01) ==
LOC: EC 06:51
DX: F10.239 Alcohol dependence with withdrawal, unspecified (principal); R10.13 Epigastric pain; R25.1 Tremor, unspecified; R74.0 Nonspecific elevation of levels of transaminase and lactic acid dehydrogenase [LDH]; E86.0 Dehydration; R82.4 Acetonuria; F17.200 Nicotine dependence, unspecified, uncomplicated
CPT/HCPCS: 36415; 80053; 83605; 83735; 85025; 81003; 80320; 71046; 99284; 96365; 96375 ×3; 96361; 96372; J2060; J3411; J2405; J3475; S0119

== ENCOUNTER 2020-01-15 17:38 | Inpatient (IN) | payer BC, OTHER ==
[~2020-01-15 17:38] MED LIST: THIAMINE 100 MG TAB PO SCH
[2020-01-15] MEDS ORDERED: LORazepam 2 MG/ML INJ IV STA (18:06)
[2020-01-15] MEDS ORDERED: SODIUM CHLORIDE 0.9% 1,000 ML IV STA ×2 (18:06)
[2020-01-15 18:49] LABS: Basophils % (A) 1 %; Eosinophils # (A) 0.2 k/uL (0-0.7); Eosinophils % (A) 2 %; Lymphocytes # (A) 1.2 k/uL (1.0-4.8); Lymphocytes % (A) 13 %; MCH 33.8 pg (25.0-35.0); MCHC 31.7 g/dL (31.0-37.0); MCV 106.7 fL (80.0-100.0); Macrocytosis Moderate; Mean Platelet Volume 8.6; Monocytes # (A) 0.3 k/uL (0-1.0); Monocytes % (A) 4 %; Neutrophils # (A) 7.2 k/uL (1.3-7.7); Neutrophils % (A) 79 %; Platelet Count 132 k/uL (150-450); RBC 3.84 m/uL (4.30-5.90); RDW 12.4 % (11.5-15.5); WBC 9.2 k/uL (3.8-10.6)
[2020-01-15] MEDS: 1: MVI, ADULT NO.4 WITH VIT K 10 ML, THIAMINE 100 MG, FOLIC ACID 1 MG in SODIUM CHLORIDE IV SCH ×4 (18:51)
[2020-01-15] MEDS ORDERED: PANTOPRAZOLE 40 MG/10 ML VIAL IVP STA (19:03)
[2020-01-15] MEDS ORDERED: ONDANSETRON 4 MG/2 ML VIAL IVP STA (19:03)
[2020-01-15 19:07] LABS: AST 262 U/L (17-59); African American GFR (CKD) >90 (>60 ml/min/1.73 sqM); Albumin 4.8 g/dL (3.5-5.0); Alkaline Phosphatase 169 U/L (38-126); Anion Gap 18 mmol/L; Blood Urea Nitrogen 5 mg/dL (9-20); Calcium 9.9 mg/dL (8.4-10.2); Carbamazepine (Tegretol) <3.0 ug/mL; Carbon Dioxide 20 mmol/L (22-30); Chloride 97 mmol/L (98-107); Glucose 96 mg/dL (74-99); Non-African American GFR(CKD) >90 (>60 ml/min/1.73 sqM); Phenytoin (Dilantin) <3.0 ug/mL; Sodium 135 mmol/L (137-145); Total Bilirubin 0.7 mg/dL (0.2-1.3); Total Protein 8.1 g/dL (6.3-8.2)
[2020-01-15 19:09] LABS: Valproic Acid (Depakene) <10.0 ug/mL
[2020-01-15 19:14] LABS: ALT 86 U/L (4-49)
[2020-01-15] MEDS ORDERED: LORazepam 2 MG/ML INJ IV PRN ×3 (19:56→20:00)
[2020-01-15] MEDS ORDERED: THIAMINE 100 MG/ML 2 ML VIAL IM STA ×2 (19:56→20:00)
--- NOTE | 2020-01-15 20:00 | ED ---
Seizure HPI - General Chief Complaint: Seizure Stated Complaint: DT's Time Seen by Provider: 01/15/20 17:51 Source: patient, EMS, RN notes reviewed, old records reviewed Mode of arrival: EMS Limitations: altered mental status - History of Present Illness Initial Comments: Patient is a 24-year-old male with history of fall call is in. Patient reports he was attempting to stop drinking. Patient subsequently had a seizure this afternoon and EMS was called by his girlfriend. Patient reports he's had seizures from alcohol withdrawal in the past. He typically drinks 524 ounce beers daily. Patient states that he did not drink today. Patient denies any head injury from the seizure. Patient reports that he has been feeling nauseated player's mental her abdominal pain as well. Patient states that he's had a prescription for nausea medication but does not report he has been taking. - Related Data Previous Rx's Medication Instructions Recorded Famotidine [Pepcid] 20 mg PO BID #20 tablet 07/28/19 Allergies Allergy/AdvReac Type Severity Reaction Status Date / Time No Known Allergies Allergy Verified 07/28/19 08:08 Review of Systems ROS Statement: Those systems with pertinent positive or pertinent negative responses have been documented in the HPI. ROS Other: All systems not noted in ROS Statement are negative. Past Medical History Past Medical History: No Reported History Additional Past Medical History / Comment(s): Previous seizures History of Any Multi-Drug Resistant Organisms: None Reported Past Surgical History: No Surgical Hx Reported Past Anesthesia/Blood Transfusion Reactions: No Reported Reaction Past Psychological History: No Psychological Hx Reported Smoking Status: Current some day smoker Past Alcohol Use History: Heavy Past Drug Use History: None Reported General Exam - General Exam Comments Initial Comments: Transitional male. Alert and oriented. Patient appears in no significant distress. Somewhat postictal and fatigue. Limitations: altered mental status General appearance: alert, in no apparent distress Head exam: Present: atraumatic, normocephalic, normal inspection Eye exam: Present: normal appearance, PERRL, EOMI. Absent: scleral icterus, conjunctival injection, periorbital swelling ENT exam: Present: normal exam, mucous membranes moist Neck exam: Present: normal inspection. Absent: tenderness, meningismus, lymphadenopathy Respiratory exam: Present: normal lung sounds bilaterally. Absent: respiratory distress, wheezes, rales, rhonchi, stridor Cardiovascular Exam: Present: regular rate, normal rhythm, normal heart sounds. Absent: systolic murmur, diastolic murmur, rubs, gallop, clicks GI/Abdominal exam: Present: soft, tenderness (Epigastric), normal bowel sounds. Absent: distended, guarding, rebound, rigid Extremities exam: Present: normal inspection, full ROM, normal capillary refill. Absent: tenderness, pedal edema, joint swelling, calf tenderness Back exam: Present: normal inspection Neurological exam: Present: alert, oriented X3, CN II-XII intact Psychiatric exam: Present: normal affect, normal mood Course Vital Signs 01/15/20 01/15/20 01/15/20 17:47 17:54 18:54 Temperature 97.8 F Pulse Rate 78 72 Respiratory 20 20 20 Rate Blood Pressure 126/72 120/76 O2 Sat by Pulse 96 98 Oximetry Medical Decision Making - Medical Decision Making 4-year-old male presents with alcohol withdrawal seizure. Patient is obese somewhat postictal on exam. Small abrasion over the lower lip. Patient was given IV fluids, banana bag. Lab work obtained. Patient does have elevated transaminases likely due to alcohol of use. His breath occult test was 0. Frances ent was given 1 mg of Ativan emergency department. Due to impending DTs Patient will be admitted at this time with IV hydration, and Ativan protocol. He denied any suicidal or homicidal ideations. - Lab Data Result diagrams: 01/15/20 18:02 01/15/20 18:02 Lab Results 01/15/20 01/15/20 01/15/20 Range/Units 18:02 18:02 18:02 WBC 9.2 (3.8-10.6) k/uL RBC 3.84 L (4.30-5.90) m/uL Hgb 13.0 (13.0-17.5) gm/dL Hct 41.0 (39.0-53.0) % MCV 106.7 H (80.0-100.0) fL MCH 33.8 (25.0-35.0) pg MCHC 31.7 (31.0-37.0) g/dL RDW 12.4 (11.5-15.5) % Plt Count 132 L (150-450) k/uL Neutrophils % 79 % Lymphocytes % 13 % Monocytes % 4 % Eosinophils % 2 % Basophils % 1 % Neutrophils # 7.2 (1.3-7.7) k/uL Lymphocytes # 1.2 (1.0-4.8) k/uL Monocytes # 0.3 (0-1.0) k/uL Eosinophils # 0.2 (0-0.7) k/uL Basophils # 0.0 (0-0.2) k/uL Macrocytosis Moderate Sodium 135 L (137-145) mmol/L Potassium 4.0 (3.5-5.1) mmol/L Chloride 97 L (98-107) mmol/L Carbon Dioxide 20 L (22-30) mmol/L Anion Gap 18 mmol/L BUN 5 L (9-20) mg/dL Creatinine 0.65 L (0.66-1.25) mg/dL Est GFR (CKD-EPI)AfAm >90 (>60 ml/min/1.73 sqM) Est GFR (CKD-EPI)NonAf >90 (>60 ml/min/1.73 sqM) Glucose 96 (74-99) mg/dL Calcium 9.9 (8.4-10.2) mg/dL Magnesium 2.1 (1.6-2.3) mg/dL Total Bilirubin 0.7 (0.2-1.3) mg/dL AST 262 H (17-59) U/L ALT 86 H (4-49) U/L Alkaline Phosphatase 169 H (38-126) U/L Total Protein 8.1 (6.3-8.2) g/dL Albumin 4.8 (3.5-5.0) g/dL Phenytoin <3.0 ug/mL Valproic Acid <10.0 ug/mL Carbamazepine <3.0 ug/mL 01/15/20 19:59 EKG performed at 1750 shows normal sinus rhythm voltage could hear for LVH. Abnormal EKG. Ventricular rate is 78 bpm. MO interval 148 ms. She muslim 92 ms. QT QTc is 400/456 ms. Disposition Clinical Impression: Alcohol withdrawal seizure, Alcohol use disorder, severe, dependence, Transaminitis Disposition: ADMITTED IP TO THIS HOSP Condition: Stable Is patient prescribed a controlled substance at d/c from ED?: No Referrals: None,Stated [Primary Care Provider] - 1-2 days Time of Disposition: 19:59
[2020-01-15] MEDS ORDERED: KETOROLAC 30 MG/ML 1 ML VIAL IVP PRN (20:10)
[2020-01-15] MEDS ORDERED: ACETAMINOPHEN TAB 325 MG TAB PO PRN (20:10)
[2020-01-15] MEDS ORDERED: MORPHINE SULFATE 4 MG/ML SYRINGE IV PRN (20:10)
[2020-01-15] MEDS ORDERED: NALOXONE 0.4 MG/ML 1 ML VIAL IV PRN (20:10)
[2020-01-15] MEDS ORDERED: ONDANSETRON 4 MG/2 ML VIAL IVP PRN (20:10)
[2020-01-15 20:12] LABS: Creatine Kinase 332 U/L (55-170)
--- NOTE | 2020-01-15 20:34 | US ---
EXAMINATION TYPE: US gallbladder DATE OF EXAM: 01/15/2020 COMPARISON: NONE CLINICAL HISTORY: transaminitis. Transaminitis. EXAM MEASUREMENTS: Liver Length: 14.9 cm Gallbladder Wall: 0.22 cm CBD: 0.84 cm Right Kidney: 9.4 x 5.6 x 4.2 cm Pancreas: Appears to be slightly heterogeneous, tail limited. Liver: Appears to have a slightly increased echogenicity. Gallbladder: Appears to be anechoic, fold seen. Evidence for sonographic Skinner's sign: No CBD: Appears to be dilated Right Kidney: No hydronephrosis or masses seen IMPRESSION: Negative exam. No gallstones or dilated ducts. Fatty infiltration of the liver.
[2020-01-15] MEDS: LORazepam 2 MG/ML INJ IV PRN (21:37)
[2020-01-15 21:42] LABS: Hyaline Casts,Urine 3 /lpf (0-2); Mucus,Urine Rare /hpf; RBC,Urine <1 /hpf (0-5); WBC,Urine 1 /hpf (0-5)
[2020-01-15 21:46] LABS: Appearance,Urine Clear (Clear); Color,Urine Yellow; Protein,Urine 2+ (Negative); Specific Gravity,Urine 1.015 (1.001-1.035)
[2020-01-15 21:47] LABS: Bilirubin,Urine Negative (Negative); Blood,Urine Negative (Negative); Glucose,Urine (UA) Negative (Negative); Ketones,Urine 1+ (Negative); Leukocyte Esterase,Urine Negative (Negative); Nitrite,Urine Negative (Negative); Urobilinogen,Urine 0.2 mg/dL (<2.0)
[2020-01-15 22:00] LABS: Amphetamine Screen,Urine Not Detected (NotDetected); Barbiturate Screen,Urine Not Detected (NotDetected); Benzodiazepines Screen,Urine Detected (NotDetected); Cocaine Screen,Urine Not Detected (NotDetected); Methadone Screen, Urine Not Detected (NotDetected); Opiate Screen,Urine Not Detected (NotDetected); Oxycodone Screen, Urine Not Detected (NotDetected); Phencyclidine Screen,Urine Not Detected (NotDetected); Tricyclic Antidepressant,Urine Not Detected (NotDetected); Urn Cannabinoid Scrn Not Detected (NotDetected)
--- NOTE | 2020-01-15 22:48 | P.HPIM ---
History of Present Illness H&P Date: 01/15/20 Chief Complaint: Seizure The patient is a 24-year-old -[place] male with a past medical history chronic alcohol dependence who presents to the ER via EMS after they were called with reports of possible seizure. The patient was found sitting in the passenger seat and diaphoretic and confused, the patient is only apparently able to answer questions about self only he denied any pain and difficulty breathing dizziness or nausea. Apparently per the patient's girlfriend he had not had any alcohol since Monday evening, on arrival in the ER the patient was reportedly post ictal. The patient reports depressive symptomology neck including depressed mood, poor sleep, mind racing with increased psychosocial stressors. He reports that he drinks four tall boys on average daily to treat his symptoms, he denies any suicidal or homicidal ideation. He reports a history of alcohol withdrawal seizures. The patient has a right handed deformity on the dorsum metacarpal area that has been present for 2 years Review of records indicates the patient is admitted here with alcohol withdrawal with reported history of alcohol withdrawal seizures In the ER the patient had a comprehensive workup on CBC was noted to be thrombocytopenic with a platelet of 132, serum sodium was 135 potassium 4.0, chloride 20 B15 creatinine 0.65 AST 262 failed T 86 after taking phosphatase 169 creatinine kinase 332 EKG showed sinus mechanism. Gallbladder ultrasound showed fatty infiltration of the liver but was otherwise negative. The patient was given a dose of Ativan, normal saline bolus, Zofran banana bag and recommended for admission, Review of Systems Pertinent positives per HPI all other review of systems otherwise negative Past Medical History Past Medical History: No Reported History Additional Past Medical History / Comment(s): Previous seizures History of Any Multi-Drug Resistant Organisms: None Reported Past Surgical History: No Surgical Hx Reported Past Anesthesia/Blood Transfusion Reactions: No Reported Reaction Past Psychological History: No Psychological Hx Reported Smoking Status: Current some day smoker Past Alcohol Use History: Heavy Past Drug Use History: None Reported Medications and Allergies Home Medications Medication Instructions Recorded Confirmed Type No Known Home Medications 01/15/20 01/15/20 History Allergies Allergy/AdvReac Type Severity Reaction Status Date / Time No Known Allergies Allergy Verified 01/15/20 20:20 Physical Exam Vitals: Vital Signs Temp Pulse Resp BP Pulse Ox 01/15/20 18:54 72 20 120/76 98 01/15/20 17:54 20 01/15/20 17:47 97.8 F 78 20 126/72 96 Intake and Output 01/15/20 01/15/20 01/15/20 06:59 14:59 22:59 Other: Weight 58.967 kg Constitutional: No acute distress, conversant, pleasant Eyes: Anicteric sclerae, moist conjunctiva, no lid-lag, PERRLA ENMT: NC/AT,Oropharynx clear, no erythema, exudates Neck:Supple, FROM, no masses, or JVD, No carotid bruits; No thyromegaly Lungs: Clear to auscultation, Clear to percussion, Normal respiratory effort, no accessory muscle use Cardiovascular: Heart regular in rate and rhythm, No murmurs, gallops, or rubs no peripheral edema Abdominal: Soft Nontender, nom distended, no guarding, no rebound or rigidity, Normoactive bowel sounds No hepatomegaly, No splenomegaly, No palpable mass No abdominal wall hernia noted Skin: Normal temperature, tone, texture, turgor, No induration No subcutaneous nodules, No rash, lesions, No ulcers Extremities:No digital cyanosis No clubbing, Pedal pulses intact and symmetrical Radial pulses intact and symmetrical Normal gait and station, No c skilled nursing tenderness Psychiatric: Alert and oriented to person, place and time, Appropriate affect Intact judgement Neuro: Muscles Strength 5/5 in all 4 extremities, Sensation to light touch grossly present throughout, Cranial nerves II-XII grossly intact. No focal sensory deficits Results CBC & Chem 7: 01/15/20 18:02 01/15/20 18:02 Labs: Abnormal Lab Results - Last 24 Hours (Table) 01/15/20 01/15/20 01/15/20 Range/Units 18:02 18:02 18:02 RBC 3.84 L (4.30-5.90) m/uL MCV 106.7 H (80.0-100.0) fL Plt Count 132 L (150-450) k/uL Sodium 135 L (137-145) mmol/L Chloride 97 L (98-107) mmol/L Carbon Dioxide 20 L (22-30) mmol/L BUN 5 L (9-20) mg/dL Creatinine 0.65 L (0.66-1.25) mg/dL AST 262 H (17-59) U/L ALT 86 H (4-49) U/L Alkaline Phosphatase 169 H (38-126) U/L Creatine Kinase 332 H (55-170) U/L Urine Protein (Negative) Urine Ketones (Negative) Hyaline Casts (0-2) /lpf Urine Mucus (None) /hpf U Benzodiazepines Scrn (NotDetected) 01/15/20 Range/Units 21:17 RBC (4.30-5.90) m/uL MCV (80.0-100.0) fL Plt Count (150-450) k/uL Sodium (137-145) mmol/L Chloride (98-107) mmol/L Carbon Dioxide (22-30) mmol/L BUN (9-20) mg/dL Creatinine (0.66-1.25) mg/dL AST (17-59) U/L ALT (4-49) U/L Alkaline Phosphatase (38-126) U/L Creatine Kinase (55-170) U/L Urine Protein 2+ H (Negative) Urine Ketones 1+ H (Negative) Hyaline Casts 3 H (0-2) /lpf Urine Mucus Rare H (None) /hpf U Benzodiazepines Scrn Detected H (NotDetected) Assessment and Plan Assessment: Alcohol withdrawal with concern for impending DTs Reported history of alcohol withdrawal seizure Hyponatremia Thrombocytopenia Transaminitis Fatty liver depression/anxiety Right hand deformity Plan: Patient is placed in observation anticipate a less than 2 midnight stay with al cohol withdrawal related delirium and concern for impending DTs and alcohol withdrawal seizures. Patient was started on symptom triggered CIWA withdrawal protocol with Ativan Prn, banana bag, IV fluids, thiamine, multivitamin. Patient is noted to have transaminitis likely related to alcoholic hepatitis with right upper quadrant ultrasound also showing fatty liver. The patient has depressive symptomology will consult psychiatry for further recommendations. Is also noted to have a right hand deformity possibly related to the previous boxer's type fracture will obtain x-rays of the right hand and consult orthopedics for further recommendations. We'll continue to monitor the patient closely. Continue to follow his clinical course. CODE STATUS: Full code Discussed plan of care with: Patient and his girlfriend Anticipated discharge place; home Greater than 60 minutes was spent in evaluation of this patient
--- NOTE | 2020-01-16 00:27 | XR ---
EXAMINATION TYPE: XR hand complete RT DATE OF EXAM: 01/16/2020 COMPARISON: NONE HISTORY: Hand deformity TECHNIQUE: 3 views FINDINGS: There is soft tissue swelling on the dorsum of the fifth MP joint. I see no fracture nor di slocation. There is some deformity of the distal radius that could relate to an old injury. IMPRESSION: Tissue swelling at the fifth MP joint. No fracture seen. Small cystic change in the fifth metacarpal head consistent with an old injury. Probable old injury of the distal radius.
[2020-01-16] MEDS: 1: MVI, ADULT NO.4 WITH VIT K 10 ML, THIAMINE 100 MG, FOLIC ACID 1 MG in SODIUM CHLORIDE IV SCH ×8 (08:26→16:56)
[2020-01-16] MEDS: DEXTROSE 5%-0.45% NACL 1,000 ML IV SCH (08:27)
[2020-01-16] MEDS: LORazepam 2 MG/ML INJ IV PRN ×3 (08:43→17:29)
[2020-01-16] MEDS: THIAMINE 100 MG TAB PO SCH ×2 (08:44→16:58)
[2020-01-16] MEDS: MULTIVITAMINS, THERA 1 EACH TAB PO SCH (08:44)
[2020-01-16] MEDS ORDERED: PANTOPRAZOLE 40 MG/10 ML VIAL IV SCH (09:00)
--- NOTE | 2020-01-16 11:37 | P.PN ---
Subjective Progress Note Date: 01/16/20 Principal diagnosis: follow up for alcohol withdrawal seizures Patient seen and examined he denies any history of seizures but reports past seizure attacks with alcohol withdrawal. Patient also reports depression not currently treated denies any homicidal or suicidal ideation Currently denies any fevers chills chest pain or trouble breathing Patient does not see himself quitting alcohol where he wants to cut back on the amount he drinks he admitted to only 2 tall beers every day Objective - Vital Signs Vital signs: Vital Signs Temp 98.2 F 01/16/20 10:04 Pulse 98 01/16/20 08:29 Resp 18 01/16/20 08:29 BP 120/81 01/16/20 08:29 Pulse Ox 98 01/16/20 08:29 Intake & Output 01/15/20 01/16/20 01/16/20 18:59 06:59 18:59 Weight 58.967 kg - Exam Constitutional: vital signs stable, Not in acute distress, pleasant, conversan t Lungs: Clear to auscultation bilaterally, clear to percussion, normal respiratory effort Cardiovascular: Regular rate and rhythm, no murmurs, no gallops, no rubs, no peripheral edema Gastrointestinal: Soft, no tenderness to palpation, bowel sounds positive, no abdominal wall hernias Extremities: No digital cyanosis or clubbing, peripheral pulses palpable and equal , no calf muscle tenderness Psych: Alert, oriented to place, person and time, appropriate affect, intact judgment Neuro: Cranial nerves II-XII grossly intact, no focal sensory deficits to touch - Labs CBC & Chem 7: 01/15/20 18:02 01/15/20 18:02 Labs: Abnormal Lab Results - Last 24 Hours (Table) 01/15/20 01/15/20 01/15/20 Range/Units 18:02 18:02 18:02 RBC 3.84 L (4.30-5.90) m/uL MCV 106.7 H (80.0-100.0) fL Plt Count 132 L (150-450) k/uL Sodium 135 L (137-145) mmol/L Chloride 97 L (98-107) mmol/L Carbon Dioxide 20 L (22-30) mmol/L BUN 5 L (9-20) mg/dL Creatinine 0.65 L (0.66-1.25) mg/dL AST 262 H (17-59) U/L ALT 86 H (4-49) U/L Alkaline Phosphatase 169 H (38-126) U/L Creatine Kinase 332 H (55-170) U/L Urine Protein (Negative) Urine Ketones (Negative) Hyaline Casts (0-2) /lpf Urine Mucus (None) /hpf U Benzodiazepines Scrn (NotDetected) 01/15/20 Range/Units 21:17 RBC (4.30-5.90) m/uL MCV (80.0-100.0) fL Plt Count (150-450) k/uL Sodium (137-145) mmol/L Chloride (98-107) mmol/L Carbon Dioxide (22-30) mmol/L BUN (9-20) mg/dL Creatinine (0.66-1.25) mg/dL AST (17-59) U/L ALT (4-49) U/L Alkaline Phosphatase (38-126) U/L Creatine Kinase (55-170) U/L Urine Protein 2+ H (Negative) Urine Ketones 1+ H (Negative) Hyaline Casts 3 H (0-2) /lpf Urine Mucus Rare H (None) /hpf U Benzodiazepines Scrn Detected H (NotDetected) Assessment and Plan Assessment: 24 year old male with alcohol dependance and abuse comes in due to seizure after deciding to cut back on alcohol. he admits to history of withdrawal seizures in the past he does not see himself quitting alcohol completely , he reports that he enjoys drinking and have mixed emotions about how this affects people around him he admits to depression but denies any suicidal or homicidal thoughts he is not sure if he would consider going to [place] for rehab upon discharge but he would think about it Plan: alcohol withdrawal seizures alcohol dependance and abuse. seizure precautions benzo PRN per CIWA thiamine, folic acid acute alcoholic hepatitis monitor liver enzymes thrombocytopenia 2/2 aclohol abuse depression , denies suicidal ideation psych eval DVT PPX heparin sc tid counseled ptient to consider [facility] upon discharge
[2020-01-16] MEDS: OLANZapine 5 MG TAB PO SCH (16:57)
--- NOTE | 2020-01-16 22:09 | CONS ---
CONSULTATION DATE OF SERVICE: 01/16/2020 PURPOSE FOR CONSULTATION: Evaluate for depression and alcohol withdrawal issues. HISTORY OF PRESENTING ILLNESS: The patient is a 24-year-old male. He has a history of chronic alcohol dependence. He presented to ED by EMS for a possible seizure which may have related to alcohol withdrawal. His girlfriend had indicated that he had not drunk any alcohol since Monday evening. When he was seen in the ED yesterday, he was noted to be confused and diaphoretic. He was only able to answer questions about himself. As the patient cleared, he was reporting issues of depression. He talked about long-term problems with his mood being down. He has poor sleep. His mind will race. He feels that psychosocial stressors have increased for him. He notes that his alcohol use is about 4 Tall Boys, which would be 24 ounces cans daily. He says that he drinks alcohol to help quiet his anxiety. He reports a history of alcohol withdrawal seizures though was not able to give me much more detail than that. He says that stress issues that aggravate depression for him included that he has had difficulty being in contact with his children, he struggles with rent issues, he has not been working. He notes that he sleeps poorly, especially since the month of December. He will wake up in the middle of the night and then cannot fall back to sleep. He currently is not on any psychotropic medications. He was vague about whether he had any psychotropics prescribed in the past. He has not had a past psychiatric hospitalization. He stated that he was once in a rehab program that was supposed to be a year long. He said he left it after 4 or 5 months. He was not able to give me any details about that. He notes that he had not had any prior rehab experience. He said that he left prematurely because he got distressed over people coming in and out of the program and other problems of others that he had to hear about. He stated he does not have current or past use of other abusive substances or street drugs. He has not had any current or past thoughts of harm to himself or others. Currently he lives with his girlfriend. The two have one child together and she has a second child also in the home. The biologic father of the child is in detention. The patient states that he is not working now, which causes him distress. He has had some college experience at [employer]. He said he was looking towards engineering or tone and was interested in the IT area of study. The patient reported that he does not smoke marijuana or use other abusive substances. Urine drug screen was negative. Since admission, the patient's vital signs have been stable, with no indication of significant withdrawal signs. His latest vital signs as of 1 p.m. include BP 117/74, pulse 87 and regular, temperature 99.4, respirations 16, oxygen saturation 99. CIWA scores having included two scores of 8, last evening at 9 p.m. and this morning at 8:30. Other scores have been 5 or below. MENTAL STATUS EXAMINATION: Patient was lying in bed. He was sitting up slightly. He gave fair eye contact. Psychomotor activity was quite slowed. Speech was monotone. There was latency in responses. He answered questions with brief responses. His thoughts were clear, coherent and goal-directed. His affect was flat, his mood depressed. He was significantly distressed. There was no outward evidence of thought disorder. On cognitive exam he was oriented x3 and alert. He was able to give fairly accurate information in regards to circumstances leading up to his hospitalization. His description was reflected in the medical record accurately. ASSESSMENT: This 24-year-old male is diagnosed with alcohol dependence and major depression. He has had complications from withdrawal, including a possible seizure as part of his current hospitalization as well as at least one episode of a seizure in the past, as per the patient's history. It is difficult to clarify whether or not he has had clear delirium tremens. At this point, the primary treatment issue is to address acute alcohol withdrawal. I had an extensive discussion with the patient regarding the time course of withdrawal. We discussed that he is likely to experience progressive withdrawal symptoms over the first two weeks and some lessening beyond that. I noted that at 6 weeks I would generally consider him to be 60% through withdrawal, which means he would continue to have fairly significant withdrawal symptoms extending over 3 months, though he should see improvement after the first 2 to 3 weeks. At this point, I will start the patient on Zyprexa 5 mg 3 times a day. The aim of Zyprexa is to help reduce physiologic stress response relating to acute alcohol withdrawal. I reviewed indications for Zyprexa, potential side effects, including metabolic concerns, and treatment course with Zyprexa. I anticipate his continuing to gain benefit from Zyprexa over the first 6 to 8 weeks of withdrawal. After that he may be able to be tapered. I noted that he may have a longer-term need to initiate antidepressant therapy, though I would defer that beyond 6 weeks, as antidepressants have virtually no benefit in early substance withdrawal. I also discussed Vivitrol as a possible option that the patient might consider early on in followup. I also discussed rehabilitation programs, including short-term programs in the range of 21 to 28 days. The patient for his part showed some interest in a possible admission to a program such as [facility]. I strongly indicated to the patient that he needs to be completely off alcohol and that the likelihood that he could drink on a "social and limited basis" is not at all likely. I will continue to follow. ROSELYN / TATIANA: [id number] / MOOSE
[2020-01-17] MEDS: LORazepam 2 MG/ML INJ IV PRN ×14 (03:25→23:31)
[2020-01-17 07:27] LABS: ALT 62 U/L (4-49); AST 95 U/L (17-59); African American GFR (CKD) >90 (>60 ml/min/1.73 sqM); Albumin 4.7 g/dL (3.5-5.0); Alkaline Phosphatase 134 U/L (38-126); Anion Gap 9 mmol/L; Blood Urea Nitrogen 4 mg/dL (9-20); Calcium 9.8 mg/dL (8.4-10.2); Carbon Dioxide 30 mmol/L (22-30); Chloride 99 mmol/L (98-107); Glucose 84 mg/dL (74-99); Non-African American GFR(CKD) >90 (>60 ml/min/1.73 sqM); Potassium 3.8 mmol/L (3.5-5.1); Sodium 138 mmol/L (137-145); Total Bilirubin 0.8 mg/dL (0.2-1.3); Total Protein 8.1 g/dL (6.3-8.2)
[2020-01-17] MEDS: THIAMINE 100 MG TAB PO SCH ×2 (08:49→16:23)
[2020-01-17] MEDS: PANTOPRAZOLE 40 MG TABLET PO SCH (08:49)
[2020-01-17] MEDS: MULTIVITAMINS, THERA 1 EACH TAB PO SCH (08:49)
[2020-01-17] MEDS: OLANZapine 5 MG TAB PO SCH ×3 (08:49→20:28)
--- NOTE | 2020-01-17 09:04 | P.CNOR ---
<GerberMaria M antunez - Last Filed: 01/17/20 09:39> History of Present Illness - [facility] Consult date: 01/17/20 Consult reason: other (Right hand mass) History of present illness: The patient is a 24-year-old male who presented to the emergency department with alcohol withdrawal 2 days ago. The patient is currently being followed by internal medicine and psychiatry. Orthopedics was consulted for a right hand mass. Patient states the mass is been there at least 7 years and has not changed in size. The mass occasionally causes pain in cold weather but otherwise there are no limitations to hand function or finger motion due to the mass. No numbness hand is present. He denies any previous injury to this hand. X-rays were taken and did not reveal bony involvement. Patient denies fever, chills, shortness breath, abdominal pain, and chest pain. Review of Systems Constitutional: Denies chills, Denies fever Cardiovascular: Denies chest pain, Denies shortness of breath Respiratory: Denies cough Musculoskeletal: right: hand pain, hand swelling Past Medical History Past Medical History: No Reported History Additional Past Medical History / Comment(s): Previous seizures History of Any Multi-Drug Resistant Organisms: None Reported Past Surgical History: No Surgical Hx Reported Past Anesthesia/Blood Transfusion Reactions: No Reported Reaction Past Psychological History: No Psychological Hx Reported Smoking Status: Current some day smoker Past Alcohol Use History: Heavy Past Drug Use History: None Reported Medications and Allergies Home Medications Medication Instructions Recorded Confirmed Type Folic Acid 1 mg PO DAILY #30 tab 01/21/20 Rx Multivitamins, Thera [Multivitamin 1 each PO DAILY #30 tab 01/21/20 Rx (formulary)] OLANZapine [ZyPREXA] 5 mg PO HS #7 tab 01/21/20 Rx Pantoprazole [Protonix] 40 mg PO AC-BRKFST #30 tablet. 01/21/20 Rx Thiamine [Vitamin B-1] 100 mg PO BID-W/MEALS #60 tab 01/21/20 Rx Allergies Allergy/AdvReac Type Severity Reaction Status Date / Time No Known Allergies Allergy Verified 01/15/20 20:20 Physical Examination The patient is a 24-year-old in no acute distress. He is alert and oriented 3. Exam of the right hand reveals a 2 1/2 x1 inch mass to the ulnar aspect of the fifth MCP joint. There is full finger range of motion without difficulty and the patient is able to make a tight fist. The mass is movable and hard to palpation. No open wounds are present. Neurological status is intact, especial ly to the right small finger. Circulatory status is normal, <2 seconds capillary refill. Results - Labs Labs: Abnormal Lab Results - Last 24 Hours (Table) 01/17/20 Range/Units 06:06 BUN 4 L (9-20) mg/dL Creatinine 0.64 L (0.66-1.25) mg/dL AST 95 H (17-59) U/L ALT 62 H (4-49) U/L Alkaline Phosphatase 134 H (38-126) U/L H & H 01/15/20 Range/Units 18:02 Hgb 13.0 (13.0-17.5) gm/dL Hct 41.0 (39.0-53.0) % Result Diagrams: 01/15/20 18:02 01/17/20 06:06 - Diagnostic results Wrist/Hand x-ray: image reviewed (3 views of the right hand reveal cystic changes to the fifth metacarpal head and right small finger proximal phalanx base. No previous fractures seen. No bony involvement.) Assessment and Plan (1) Mass of right hand Current Visit: Yes Status: Acute Code(s): R22.31 - LOCALIZED SWELLING, MASS AND LUMP, RIGHT UPPER LIMB SNOMED Code(s): 083582349 (2) Alcohol use disorder, severe, dependence Current Visit: Yes Status: Acute Priority: High Code(s): F10.20 - ALCOHOL DEPENDENCE, UNCOMPLICATED SNOMED Code(s): 836778891 Plan: The clinical and x-ray findings were discussed with the patient and the patient's girlfriend at the bedside. The case was also discussed with Dr. Britton. We are recommending outpatient follow up for the right hand mass. This issue is not urgent and is not impacting hand function currently. It mostly like an inclusion cyst or ganglion cyst. He will likely need surgical excision of the mass if he chooses but it can be done on an outpatient basis when he is more stable. The patient will follow up with Dr. Britton in our office as needed. We will sign off at this time. <Dakota Britton - Last Filed: 01/21/20 11:14> Results - Labs Labs: Abnormal Lab Results - Last 24 Hours (Table) 01/20/20 01/20/20 01/20/20 Range/Units 12:07 12:12 17:48 RBC (4.30-5.90) m/uL Hgb (13.0-17.5) gm/dL Hct (39.0-53.0) % MCV (80.0-100.0) fL Sodium (137-145) mmol/L BUN (9-20) mg/dL Creatinine (0.66-1.25) mg/dL POC Glucose (mg/dL) 435 H 177 H 135 H (75-99) mg/dL 01/20/20 01/21/20 01/21/20 Range/Units 23:35 04:29 04:29 RBC 3.65 L (4.30-5.90) m/uL Hgb 12.4 L (13.0-17.5) gm/dL Hct 38.8 L (39.0-53.0) % MCV 106.3 H (80.0-100.0) fL Sodium 136 L (137-145) mmol/L BUN 5 L (9-20) mg/dL Creatinine 0.52 L (0.66-1.25) mg/dL POC Glucose (mg/dL) 113 H (75-99) mg/dL H & H 01/15/20 01/18/20 01/19/20 Range/Units 18:02 05:32 04:27 Hgb 13.0 12.2 L 13.0 (13.0-17.5) gm/dL Hct 41.0 38.1 L 40.7 (39.0-53.0) % 01/20/20 01/21/20 Range/Units 04:32 04:29 Hgb 11.9 L 12.4 L (13.0-17.5) gm/dL Hct 37.2 L 38.8 L (39.0-53.0) % Result Diagrams: 01/21/20 04:29 01/21/20 04:29 Assessment and Plan Plan: Discussed with SADIA Wood and agree with above. I subsequently saw and examined the patient, as well. S: The patient is actively going through withdrawals and unable to provide additional history. (He is currently in four-point restraints.) O: Large, nontender mass over the dorsal ulnar aspect of the fifth MCP joint. This is not fixed to the skin and there are no overlying trophic changes. No pain or focal restriction in range of motion with active or passive MCP motion. A: 1. Right hand mass 2. Alcohol abuse with acute withdrawal P: The mass has been present for years. No need for acute intervention. Recommend outpatient follow-up for further workup and treatment options. We will sign off at this time. Thank you for allowing us to participate in the care of this patient. Please contact us with any questions. Dakota Britton D.O. [facility]
[2020-01-17] MEDS ORDERED: HALOPERIDOL LACTATE 5 MG/ML 1 ML VIAL IM STA ×5 (11:49→15:39)
--- NOTE | 2020-01-17 13:07 | P.PN ---
Subjective Progress Note Date: 01/17/20 Principal diagnosis: follow up for alcohol withdrawal seizures Patient seen and examined he is having severe withdrwal symptoms reporting hallucinations visual and tactile he is being irritable and restless. requiring frequent dosing of ativan and haldol denies any chest pain or trouble breathing no fevers no seizures Objective - Vital Signs Vital signs: Vital Signs Temp 98.2 F 01/17/20 07:00 Pulse 88 01/17/20 08:00 Resp 18 01/17/20 08:00 BP 127/82 01/17/20 07:00 Pulse Ox 99 01/17/20 07:00 Intake & Output 01/16/20 01/17/20 01/17/20 18:59 06:59 18:59 Intake Total 140 240 Balance 140 240 Weight 58.967 kg Intake: Intake, IV Titration 140 240 Amount Dextrose 5%-0.45% NaCl 1, 140 240 000 ml @ 20 mls/hr IV . Q24H [facility] Rx#:[id number] Other: Voiding Method Toilet Toilet # Voids 1 - Exam Constitutional: vital signs stable, was restless and irritable earlier , he was calmed down by the time i saw him , conversant Lungs: Clear to auscultation bilaterally, clear to percussion, normal respiratory effort Cardiovascular: Regular rate and rhythm, no murmurs, no gallops, no rubs, no peripheral edema Gastrointestinal: Soft, no tenderness to palpation, bowel sounds positive Extremities: No digital cyanosis or clubbing, peripheral pulses palpable and equ al , no calf muscle tenderness Psych: Alert, oriented to place, person and time, appropriate affect, intact judgment - Labs CBC & Chem 7: 01/15/20 18:02 01/17/20 06:06 Labs: Abnormal Lab Results - Last 24 Hours (Table) 01/17/20 Range/Units 06:06 BUN 4 L (9-20) mg/dL Creatinine 0.64 L (0.66-1.25) mg/dL AST 95 H (17-59) U/L ALT 62 H (4-49) U/L Alkaline Phosphatase 134 H (38-126) U/L Assessment and Plan Assessment: 24 year old male with alcohol dependance and abuse comes in due to seizure after deciding to cut back on alcohol. he admits to history of withdrawal seizures in the past he does not see himself quitting alcohol completely , he reports that he enjoys drinking and have mixed emotions about how this affects people around him he admits to depression but denies any suicidal or homicidal thoughts he is not sure if he would consider going to [facility] for rehab upon discharge but he would think about it 01/17 patient is having severe withdrawal symptoms visual and tactile hallucinations requiring frequent dosing of ativan and now added halidol psych agrees with major depressio and started patient on zyprexa continue to monitor closely no beds available in step down unit , patient might be transferred to ICU if needs higher dosing of ativan or if need to be started on a drip Plan: alcohol withdrawal seizures delerium tremens alcohol dependance and abuse. seizure precautions benzo PRN per LISA thiamine, folic acid halidol PRN acute alcoholic hepatitis, improving monitor liver enzymes thrombocytopenia 2/ aclohol abuse depression , denies suicidal ideation psych eval zyprexa DVT PPX heparin sc tid patient might need to be transferred to ICU for more frequent dosing of benzo or even starting a drip no beds available in step down unit
--- NOTE | 2020-01-17 14:11 | P.MHFACE ---
Face to Face Restrain/Seclus - Evaluation Patient's Immediate Situation: Violent behavior Patient's Immediate Situation - Comment: Severe alcohol withdrawal symptoms patient is going into DTs Patient's Reaction to the Intervention: Cooperative, Anxious, Restless Patient's Medical & Behavioral Condition: Awake, Alert, Follows directions, Agitated, Visual hallucinations Need to Continue or Terminate Restraint or Seclusion: Continue
[2020-01-17] MEDS ORDERED: LORazepam 2 MG/ML INJ IV STA ×5 (14:38→16:12)
--- NOTE | 2020-01-17 14:50 | P.CNPUL ---
History of Present Illness Consult date: 01/17/20 Chief complaint: Delirium tremens History of present illness: This is a 74-year-old -[place] male patient, alcoholic, who came in to the hospital after he had a seizure. He was trying to quit alcohol drinking completely. He didn't seize. He does not have history of epilepsy in his seizures have been essentially related to alcohol related activity. He reported that he enjoyed drinking and he had mixed emotions about how this was affecting people around him. He decided to quit drinking. Since his admission, the patient went into full-blown delirium tremens. Earlier this morning, I was contacted by the hospitalist requesting in ICU transfer as the patient has been very difficult to take care of. He was having restlessness, agitation, confusion, visual and tactile hallucination. He was given a total of 12 mg of Ativan, 4 mg of Haldol, Zyprexa 5 mg 2 doses yesterday and is currently in 4. restraints. The last 2 mg doses of Ativan was given just right at the time of my dictation. No emesis. No aspiration. No respiratory distress. Currently is on room air oxygen. He is also on thiamine and folate. He is receiving IV fluids. No further seizure activity has been noted. Review of Systems ROS unobtainable: due to mental status Past Medical History Past Medical History: No Reported History Additional Past Medical History / Comment(s): Previous seizures alcohol related, alcoholism History of Any Multi-Drug Resistant Organisms: None Reported Past Surgical History: No Surgical Hx Reported Past Anesthesia/Blood Transfusion Reactions: No Reported Reaction Past Psychological History: No Psychological Hx Reported Smoking Status: Current some day smoker Past Alcohol Use History: Heavy Past Drug Use History: None Reported Medications and Allergies Home Medications Medication Instructions Recorded Confirmed Type No Known Home Medications 01/15/20 01/15/20 History Allergies Allergy/AdvReac Type Severity Reaction Status Date / Time No Known Allergies Allergy Verified 01/15/20 20:20 Physical Exam Vitals: Vital Signs Temp Pulse Resp BP Pulse Ox 01/17/20 14:09 98.3 F 111 H 20 132/83 97 01/17/20 08:00 88 18 01/17/20 07:00 98.2 F 88 18 127/82 99 01/17/20 04:00 97 16 01/17/20 01:48 97.8 F 97 123/80 100 01/17/20 00:00 87 01/16/20 20:55 99 01/16/20 20:00 87 16 01/16/20 18:40 98.7 F 116 H 16 116/67 99 01/16/20 16:00 87 16 01/16/20 15:00 98.6 F 82 17 122/84 94 L Intake and Output 01/16/20 01/17/20 01/17/20 22:59 06:59 14:59 Intake Total 240 Balance 240 Intake: Intake, IV Titration 240 Amount Dextrose 5%-0.45% NaCl 1, 240 000 ml @ 20 mls/hr IV . Q24H [facility] Rx#:[id number] Other: Voiding Method Toilet Toilet # Voids 2 1 Tremulous, placed in 4. restraints, confused and restless and agitated in bed. A sitter is at the bedside at all times.The patient appeared well nourished and normally developed. Vital signs as documented. Head exam is unremarkable. No scleral icterus or corneal arcus noted. Neck is without jugular venous distension, thyromegaly, or carotid bruits. Carotid upstrokes are brisk bilat erally. Lungs are clear to auscultation and percussion. Cardiac exam reveals the PMI to be normally sized and situated. Rhythm is regular. First and second heart sounds normal. No murmurs, rubs or gallops. Abdominal exam reveals normal bowel sounds, no masses, no organomegaly and no aortic enlargement. Extremities are nonedematous and both femoral and pedal pulses are normal.Examination of the ski n revealed no evidence of significant rashes, suspicious appearing nevi or other concerning lesions. Neurologically confused and is having tactile and visual hallucinations. He is moving all 4 extremities. He is quite strong and is currently in 4. restraints. Results - Laboratory Findings CBC and BMP: 01/15/20 18:02 01/17/20 06:06 Abnormal lab findings: Abnormal Labs 01/15/20 01/15/20 01/15/20 18:02 18:02 18:02 RBC 3.84 L MCV 106.7 H Plt Count 132 L Sodium 135 L Chloride 97 L Carbon Dioxide 20 L BUN 5 L Creatinine 0.65 L AST 262 H ALT 86 H Alkaline Phosphatase 169 H Creatine Kinase 332 H Urine Protein Urine Ketones Hyaline Casts Urine Mucus U Benzodiazepines Scrn 01/15/20 01/17/20 21:17 06:06 RBC MCV Plt Count Sodium Chloride Carbon Dioxide BUN 4 L Creatinine 0.64 L AST 95 H ALT 62 H Alkaline Phosphatase 134 H Creatine Kinase Urine Protein 2+ H Urine Ketones 1+ H Hyaline Casts 3 H Urine Mucus Rare H U Benzodiazepines Scrn Detected H Assessment and Plan Plan: 1 delirium tremens secondary to alcohol withdrawal. The patient is confused, agitated, restless, having visual and auditory hallucinations. 2 chronic alcoholism 3 abnormal LFTs related to alcoholism 4 mild thrombocytopenia, alcohol abuse 5 depression Plan Transfer the patient ICU CIWA scale for alcohol withdrawal Continue Ativan, Haldol and Zyprexa Aspiration precaution Seizure precaution IV fluids along with thiamine We'll continue to follow.
[2020-01-17] MEDS: HALOPERIDOL LACTATE 5 MG/ML 1 ML VIAL IM PRN ×2 (15:08→20:11)
[2020-01-17] MEDS: DEXTROSE 5%-0.45% NACL 1,000 ML IV SCH (15:31)
[2020-01-17] MEDS: 1: MVI, ADULT NO.4 WITH VIT K 10 ML, THIAMINE 100 MG, FOLIC ACID 1 MG in SODIUM CHLORIDE IV SCH ×12 (15:32→20:27)
[2020-01-17 15:35] LABS: Glucose,Whole Blood 133 mg/dL (75-99)
[2020-01-17] MEDS ORDERED: LORazepam 2 MG/ML INJ IV PRN ×2 (18:26)
--- NOTE | 2020-01-17 19:58 | CONS ---
CONSULTATION DATE OF SERVICE: 01/17/2020 PURPOSE FOR CONSULTATION: Evaluate the patient for depression and alcohol withdrawal issues. INTERVAL HISTORY: The patient has been struggling. I saw him this morning about 9 in the morning. He had a difficult evening yesterday with increasing problems with restlessness, anxiety and some agitation. I had started him on Zyprexa 5 mg 3 times a day. He received an afternoon dose, though then the evening dose was held. He received some additional doses of Ativan. He continued with ups and downs through the night. This morning he is somewhat restless. His girlfriend was with him this morning. She was able to confirm that he has had at least two other periods where he had withdrawal-related seizures. It is noted that when I talked to him this morning he was somewhat confused. He generally could respond to questions with fairly appropriate responses, though on the other hand he was clearly having trouble with being disoriented. He asked me at one point, "What is in the bag?" He pointed off to his right side 3 or 4 times until his girlfriend told him the IV bag was on the left side. His girlfriend confirmed that he did have a seizure in November and then one in October that were related to alcohol withdrawal. She also noted that he had not been in a long-term treatment program though previously had been in [place] for a short period of time. It was clear in what the girlfriend was reporting that he was not able to provide accurate details when I talked to him yesterday. I saw him in followup about 12:30 in the afternoon. At that point he was in a very agitated state. He was restless. He had required physical restraints. He was receiving additional doses of Ativan 2 mg IV for control of agitation. Vital signs have remained stable. He has not shown an elevated temperature. When I made efforts to talk to the patient, he was confused and disoriented. He could respond to a few commands such as to lay his head down on the pillow. He would only do this for a matter of a few seconds and then his head was back up again. He did not make any statements that were coherent. I had one additional contact at 3:30 when the patient was in ICU. I reviewed issues with his physician. The patient has calmed down some with the addition of Haldol. He is showing signs of restlessness, some agitation, hallucinations and delusions along with confusion and disorientation. ASSESSMENT: The patient is diagnosed with delirium tremens secondary to acute alcohol withdrawal. According to ICU staff, he is in the third day of alcohol withdrawal. There are no other complicating drugs on board, prior use before coming into the hospital. I recommended a trial of Haldol 10 mg IM. At this point I will not continue psychiatric followup. Please re-consult Psychiatry if further input is warranted. ROSELYN / BIBIN: [id number] /
[2020-01-18] MEDS: LORazepam 2 MG/ML INJ IV PRN ×12 (00:54→18:09)
[2020-01-18] MEDS: HALOPERIDOL LACTATE 5 MG/ML 1 ML VIAL IM PRN ×2 (01:50→18:25)
[2020-01-18] MEDS: 1: MVI, ADULT NO.4 WITH VIT K 10 ML, THIAMINE 100 MG, FOLIC ACID 1 MG in SODIUM CHLORIDE IV SCH ×8 (05:43→15:00)
[2020-01-18 06:09] LABS: African American GFR (CKD) >90 (>60 ml/min/1.73 sqM); Anion Gap 8 mmol/L; Blood Urea Nitrogen 2 mg/dL (9-20); Calcium 9.3 mg/dL (8.4-10.2); Carbon Dioxide 26 mmol/L (22-30); Chloride 104 mmol/L (98-107); Glucose 82 mg/dL (74-99); Non-African American GFR(CKD) >90 (>60 ml/min/1.73 sqM); Potassium 3.2 mmol/L (3.5-5.1); Sodium 138 mmol/L (137-145)
[2020-01-18] MEDS ORDERED: Potassium Replacement Protocol 1 EACH MISC MISCELLANE PRN (06:11)
[2020-01-18 06:13] LABS: Basophils % (A) 0 %; Eosinophils # (A) 0.1 k/uL (0-0.7); Eosinophils % (A) 2 %; HCT 38.1 % (39.0-53.0); HGB 12.2 gm/dL (13.0-17.5); Lymphocytes # (A) 0.8 k/uL (1.0-4.8); Lymphocytes % (A) 11 %; MCHC 32.1 g/dL (31.0-37.0); MCV 105.8 fL (80.0-100.0); Macrocytosis Slight; Monocytes # (A) 0.5 k/uL (0-1.0); Monocytes % (A) 7 %; Neutrophils # (A) 5.5 k/uL (1.3-7.7); Neutrophils % (A) 78 %; Platelet Count 145 k/uL (150-450); RDW 12.3 % (11.5-15.5); WBC 7.1 k/uL (3.8-10.6)
[2020-01-18] MEDS: POTASSIUM CHLORIDE 10 MEQ in WATER FOR INJECTION 1 100ML.BAG IVPB SCH ×4 (06:37→14:00)
[2020-01-18] MEDS: THIAMINE 100 MG TAB PO SCH ×2 (06:38→16:48)
[2020-01-18] MEDS: PANTOPRAZOLE 40 MG TABLET PO SCH (06:38)
[2020-01-18] MEDS: OLANZapine 5 MG TAB PO SCH ×3 (08:28→22:02)
[2020-01-18] MEDS ORDERED: Magnesium Replacement Protocol 1 EACH MISC MISCELLANE PRN (08:37)
[2020-01-18] MEDS: MAGNESIUM SULFATE-D5W PMX 1 GM in DEXTROSE/WATER 1 100ML.BAG IVPB SCH ×2 (09:15→10:35)
--- NOTE | 2020-01-18 10:25 | P.PN ---
Subjective Progress Note Date: 01/18/20 On today's evaluation of 01/18/2020, the patient is more calm yet not completely out of the room treatments. He remains somewhat restless in bed, hallucinating, tremulous, at times agitated with minimal amount of sleep despite being aggressively treated for his delirium tremens. Overall, he received Haldol and Ativan in large doses. Affect is receiving Ativan 4 mg every 1 hour- 2 hours. He is conversing. He is confused. Not oriented to place or time or follow. He is nothing by mouth. He is on IV fluids. No fever. No chills. No significant tachycardia. Hemodynamically stable. Able to protect his airways. No major electrolyte imbalance at this point in time. Overall he has received Ativan 44 mg of Ativan over the past 12 hours. He is also received Haldol 12 mg total over the past 12 hours. Objective - Vital Signs Vital signs: Vital Signs Temp 98.3 F 01/18/20 08:00 Pulse 86 01/18/20 08:00 Resp 22 01/18/20 08:00 BP 122/99 01/18/20 08:00 Pulse Ox 100 01/18/20 08:00 Intake & Output 01/17/20 01/18/20 01/18/20 18:59 06:59 18:59 Intake Total 300 1500 100 Output Total 0 0 475 Balance 300 1500 -375 Intake: IV 300 1500 100 Mvi, Adult No.4 with Vit 100 800 100 K 10 ml Thiamine 100 mg Folic Acid 1 mg In Sodium Chloride 0.9% 1,000 ml @ 100 mls/hr IV .BY DURATION [facility] Rx#: [id number] Sodium Chloride 0.9% 1, 200 700 000 ml @ 100 mls/hr IV . BY DURATION [facility] Rx#: [id number] Output: Urine 0 0 475 Other: Voiding Method Toilet # Voids 1 1 1 - Exam Tremulous, placed in 4 restraints, confused and restless and agitated in bed. A sitter is at the bedside at all times.The patient appeared well nourished and normally developed. Vital signs as documented. Head exam is unremarkable. No scleral icterus or corneal arcus noted. Neck is without jugular venous distension, thyromegaly, or carotid bruits. Carotid upstrokes are brisk bilate rally. Lungs are clear to auscultation and percussion. Cardiac exam reveals the PMI to be normally sized and situated. Rhythm is regular. First and second heart sounds normal. No murmurs, rubs or gallops. Abdominal exam reveals normal bowel sounds, no masses, no organomegaly and no aortic enlargement. Extremities are nonedematous and both femoral and pedal pulses are normal.Examination of the skin revealed no evidence of significant rashes, suspicious appearing nevi or other concerning lesions. Neurologically confused and is having tactile and visual hallucinations. He is moving all 4 extremities. He is quite strong and is currently in 4 restraints. - Labs CBC & Chem 7: 01/18/20 05:32 01/18/20 05:32 Labs: Abnormal Lab Results - Last 24 Hours (Table) 01/17/20 01/18/20 01/18/20 Range/Units 15:33 05:32 05:32 RBC 3.60 L (4.30-5.90) m/uL Hgb 12.2 L (13.0-17.5) gm/dL Hct 38.1 L (39.0-53.0) % MCV 105.8 H (80.0-100.0) fL Plt Count 145 L (150-450) k/uL Lymphocytes # 0.8 L (1.0-4.8) k/uL Potassium 3.2 L (3.5-5.1) mmol/L BUN 2 L (9-20) mg/dL Creatinine 0.54 L (0.66-1.25) mg/dL POC Glucose (mg/dL) 133 H (75-99) mg/dL Magnesium (1.6-2.3) mg/dL 01/18/20 Range/Units 05:32 RBC (4.30-5.90) m/uL Hgb (13.0-17.5) gm/dL Hct (39.0-53.0) % MCV (80.0-100.0) fL Plt Count (150-450) k/uL Lymphocytes # (1.0-4.8) k/uL Potassium (3.5-5.1) mmol/L BUN (9-20) mg/dL Creatinine (0.66-1.25) mg/dL POC Glucose (mg/dL) (75-99) mg/dL Magnesium 1.5 L (1.6-2.3) mg/dL Assessment and Plan Plan: 1 delirium tremens secondary to alcohol withdrawal. The patient is confused, agitated, restless, having visual and auditory hallucinations. 2 chronic alcoholism 3 abnormal LFTs related to alcoholism 4 mild thrombocytopenia, alcohol abuse 5 depression 6 hypokalemia and magnesium, being replaced Plan Allison treating this patient in the intensive care unit. There is some limited improvement in his agitation. Still in delirium tremens. Still requiring close supervision by nursing staff elicited. Still requiring Ativan as the patient has a total of 44 mg of Ativan over the past 12 hours. He is also on Haldol and Zyprexa. CIWA scale for alcohol withdrawal Continue Ativan, Haldol and Zyprexa Aspiration precaution Seizure precaution IV fluids along with thiamine Replace electrolytes We'll continue to follow.
[2020-01-18] MEDS ORDERED: HALOPERIDOL LACTATE 5 MG/ML 1 ML VIAL IM PRN (17:45)
[2020-01-18 18:55] LABS: Magnesium 1.9 mg/dL (1.6-2.3); Potassium 4.2 mmol/L (3.5-5.1)
--- NOTE | 2020-01-18 19:40 | P.PN ---
Subjective Progress Note Date: 01/18/20 (delayed charting seen at 1015) Principal diagnosis: altered mentation Patient is a 24-year-old -Citizen Of [place] male with a history of chronic alcohol dependency, prior withdrawal seizure, tobacco abuse, prior history of alcohol withdrawal who presented to the emergency department after he was found sitting in the passenger seat diaphoretic and confused in the car. In the ER they felt the patient was possibly post ictal and he does have a history of withdrawal seizures in the past. On arrival his vital signs are within normal limits. Laboratory analysis showed a low platelet count 132, sodium 135, carbon dioxide 20, BUN 5, creatinine 0.65, AST 262, ALT 86, alkaline phosphatase 169, and CK 332. Urinalysis was negative. Urine drug screen was positive for benzos [place] uri this was obtained after he had been treated with Ativan. He underwent a gallbladder ultrasound which showed fatty infiltration of the liver was negative for gallstones or dilated ducts. He was admitted for acute alcohol withdrawal concerns for impending DTs and possible alcohol withdrawal seizure. He was started on a multivitamin bag, CIWA protocol with Ativan, and psychiatry was consulted. He was noted to have a right hand deformity. Orthopedic surgery was consulted and this was consistent with an inclusion or ganglion cyst and they recommended follow-up in the outpatient setting. Despite treatment with CIWA protocol his agitation and confusion increased and his DTs became more si gnificant. He was requiring copious amounts of Ativan was subsequently transitioned to the ICU. Psychiatry evaluated the patient and recommended the addition of Zyprexa. He did require physical restraints as Ativan was not able to control his agitation. Patient seen and examined at bedside. He is awake, he is talking nonsensically, he is not following commands, he continues to require both the patient sitter and physical restraints. He has required greater than 40 mg of Ativan in the last 24 hours including every hour Ativan dosing. Objective - Vital Signs Vital signs: Vital Signs Temp 100.2 F H 01/18/20 18:00 Pulse 114 H 01/18/20 18:00 Resp 27 H 01/18/20 18:00 BP 119/79 01/18/20 18:00 Pulse Ox 97 01/18/20 18:00 Intake & Output 01/18/20 01/18/20 01/19/20 06:59 18:59 06:59 Intake Total 1500 1800 Output Total 0 1525 Balance 1500 275 Intake: IV 1500 1600 Magnesium Sulfate-D5w Pmx 300 1 gm In Dextrose/Water 1 100ml.bag @ 100 mls/hr IVPB Q1H [facility] Rx#: [id number] Mvi, Adult No.4 with Vit 800 600 K 10 ml Thiamine 100 mg Folic Acid 1 mg In Sodium Chloride 0.9% 1,000 ml @ 100 mls/hr IV .BY DURATION [facility] Rx#: [id number] Potassium Chloride 10 meq 300 In Water For Injection 1 100ml.bag @ 100 mls/hr IVPB Q1HR [facility] Rx#: [id number] Sodium Chloride 0.9% 1, 700 400 000 ml @ 100 mls/hr IV . BY DURATION [facility] Rx#: [id number] Oral 200 Output: Urine 0 1525 Other: Voiding Method Urinal Diaper # Voids 1 1 - Exam General: non toxic, moderate distress, appears younger than stated age Derm: warm, dry Head: atraumatic, normocephalic, symmetric Eyes: EOMI, no lid lag, anicteric sclera Mouth: no lip lesion, mucus membranes moist Cardiovascular: S1S2 reg, no murmur, positive posterior tibial pulse bilateral, Lungs: CTA bilateral, no rhonchi, no rales , no accessory muscle use Abdominal: soft, nontender to palpation, no guarding, no appreciable orga nomegaly Ext: no gross muscle atrophy, no edema, no contractures Neuro: CN II-XI grossly intact, no focal neuro deficits Psych: awake, incoherent speech, appropriate affect, restraints and sitter in place, no following commands - Labs CBC & Chem 7: 01/18/20 05:32 01/18/20 18:24 Labs: Abnormal Lab Results - Last 24 Hours (Table) 01/18/20 01/18/20 01/18/20 Range/Units 05:32 05:32 05:32 RBC 3.60 L (4.30-5.90) m/uL Hgb 12.2 L (13.0-17.5) gm/dL Hct 38.1 L (39.0-53.0) % MCV 105.8 H (80.0-100.0) fL Plt Count 145 L (150-450) k/uL Lymphocytes # 0.8 L (1.0-4.8) k/uL Potassium 3.2 L (3.5-5.1) mmol/L BUN 2 L (9-20) mg/dL Creatinine 0.54 L (0.66-1.25) mg/dL Magnesium 1.5 L (1.6-2.3) mg/dL Assessment and Plan Assessment: Delirium Tremens - Continue with Ativan requiring high doses, consider intubation with gtt if not improving, also could consider precedex use - seizure precuations - psych recs appreciated: on zyprexa - MVI bag - continue with sitter ETOH Hepatitis - improving - follow liver enzymes - abstain from alcohol Hypomagnesemia and hypokalemia - replace and recheck Thrombocytopenia with fatty liver - due to ETOH use - avoid ETOH Depression - psych recs - on zyprexa Hyponatremia, resolved DVT prophylaxis: Frequent movement Discussed with: Patients girl friend, nursing Anticipated discharge: unknown Anticipated discharge place: unknown A total of 35 minutes was spent on the care of this complex patient more than 50% of the time was spent in counseling and care coordination.
[2020-01-18] MEDS ORDERED: DEXMEDETOMIDINE/0.9% NACL(PMX) 400 MCG in EMPTY BAG 1 BAG IV SCH (20:00)
[2020-01-19 04:44] LABS: HCT 40.7 % (39.0-53.0); MCH 34.6 pg (25.0-35.0); MCV 108.3 fL (80.0-100.0); Macrocytosis Moderate; Mean Platelet Volume 8.5; Platelet Count 155 k/uL (150-450); RBC 3.75 m/uL (4.30-5.90); RDW 12.2 % (11.5-15.5); WBC 6.5 k/uL (3.8-10.6)
[2020-01-19 04:57] LABS: ALT 52 U/L (4-49); AST 130 U/L (17-59); African American GFR (CKD) >90 (>60 ml/min/1.73 sqM); Albumin 4.2 g/dL (3.5-5.0); Alkaline Phosphatase 100 U/L (38-126); Anion Gap 14 mmol/L; Blood Urea Nitrogen 4 mg/dL (9-20); Calcium 9.3 mg/dL (8.4-10.2); Carbon Dioxide 18 mmol/L (22-30); Chloride 106 mmol/L (98-107); Glucose 57 mg/dL (74-99); Non-African American GFR(CKD) >90 (>60 ml/min/1.73 sqM); Potassium 4.1 mmol/L (3.5-5.1); Sodium 138 mmol/L (137-145); Total Bilirubin 0.8 mg/dL (0.2-1.3); Total Protein 7.5 g/dL (6.3-8.2)
[2020-01-19 05:23] LABS: Glucose,Whole Blood 67 mg/dL (75-99)
[2020-01-19] MEDS ORDERED: DEXTROSE 10 % IN WATER 250 ML IV ONE (05:35)
[2020-01-19] MEDS: 1: MVI, ADULT NO.4 WITH VIT K 10 ML, THIAMINE 100 MG, FOLIC ACID 1 MG in SODIUM CHLORIDE IV SCH ×4 (05:36)
[2020-01-19] MEDS: PANTOPRAZOLE 40 MG TABLET PO SCH (05:40)
[2020-01-19 05:53] LABS: Glucose,Whole Blood 177 mg/dL (75-99)
[2020-01-19] MEDS: THIAMINE 100 MG TAB PO SCH ×2 (07:11→18:40)
[2020-01-19] MEDS: OLANZapine 5 MG TAB PO SCH ×3 (09:51→21:48)
[2020-01-19] MEDS: MULTIVITAMINS, THERA 1 EACH TAB PO SCH (09:51)
--- NOTE | 2020-01-19 11:03 | P.PN ---
Subjective Progress Note Date: 01/19/20 The patient is seen today 01/19/2020 in follow-up in the intensive care unit. He is currently awake and alert in no acute distress. On room air. He is calm and cooperative. He was initiated on Precedex which helped with his withdrawal symptoms. It's been off approximate half hour now. White count 6.5. Hemoglobin 13.0. MCV 108.3. Sodium 138. Potassium 4.1. Bicarb 18. Creatinine 0.52. AST 130. ALT 52. Objective - Vital Signs Vital signs: Vital Signs Temp 97.9 F 01/19/20 08:00 Pulse 73 01/19/20 10:00 Resp 24 01/19/20 10:00 BP 119/78 01/19/20 10:00 Pulse Ox 98 01/19/20 10:00 Intake & Output 01/18/20 01/19/20 01/19/20 18:59 06:59 18:59 Intake Total 1800 1400 431.642 Output Total 1525 Balance 275 1400 431.642 Intake: IV 1600 1400 400 Magnesium Sulfate-D5w Pmx 300 1 gm In Dextrose/Water 1 100ml.bag @ 100 mls/hr IVPB Q1H [facility] Rx#: [id number] Mvi, Adult No.4 with Vit 600 K 10 ml Thiamine 100 mg Folic Acid 1 mg In Sodium Chloride 0.9% 1,000 ml @ 100 mls/hr IV .BY DURATION [facility] Rx#: [id number] Potassium Chloride 10 meq 300 In Water For Injection 1 100ml.bag @ 100 mls/hr IVPB Q1HR [facility] Rx#: [id number] Sodium Chloride 0.9% 1, 400 1400 400 000 ml @ 100 mls/hr IV . BY DURATION [facility] Rx#: [id number] Intake, IV Titration 31.642 Amount Dexmedetomidine/0.9% NaCl 31.642 (Pmx) 400 mcg In Empty Bag 1 bag @ Titrate IV . Q0M [facility] Rx#:[id number] Oral 200 Output: Urine 1525 Other: Voiding Method Urinal Urinal Diaper Diaper # Voids 1 2 1 - Exam GENERAL EXAM: Alert, cooperative 24-year-old male patient, on room air,, comfortable in no apparent distress. HEAD: Normocephalic. EYES: Normal reaction of pupils, equal size. NOSE: Clear with pink turbinates. THROAT: No erythema or exudates. NECK: No masses, no JVD. CHEST: No chest wall deformity. LUNGS: Equal air entry with no crackles, wheeze, rhonchi or dullness. CVS: S1 and S2 normal with no audible murmur, regular rhythm. ABDOMEN: No hepatosplenomegaly, normal bowel sounds, no guarding or rigidity. SPINE: No scoliosis or deformity SKIN: No rashes CENTRAL NERVOUS SYSTEM: No focal deficits, tone is normal in all 4 extremities. EXTREMITIES: There is no peripheral edema. No clubbing, no cyanosis. Peripheral pulses are intact. - Labs CBC & Chem 7: 01/19/20 04:27 01/19/20 04:27 Labs: Abnormal Lab Results - Last 24 Hours (Table) 01/19/20 01/19/20 01/19/20 Range/Units 04:27 04:27 05:21 RBC 3.75 L (4.30-5.90) m/uL MCV 108.3 H (80.0-100.0) fL Carbon Dioxide 18 L (22-30) mmol/L BUN 4 L (9-20) mg/dL Creatinine 0.52 L (0.66-1.25) mg/dL Glucose 57 L (74-99) mg/dL POC Glucose (mg/dL) 67 L (75-99) mg/dL AST 130 H (17-59) U/L ALT 52 H (4-49) U/L 01/19/20 Range/Units 05:51 RBC (4.30-5.90) m/uL MCV (80.0-100.0) fL Carbon Dioxide (22-30) mmol/L BUN (9-20) mg/dL Creatinine (0.66-1.25) mg/dL Glucose (74-99) mg/dL POC Glucose (mg/dL) 177 H (75-99) mg/dL AST (17-59) U/L ALT (4-49) U/L Assessment and Plan Assessment: 1 delirium tremens secondary to alcohol withdrawal. Initiated on Precedex and is much more calm and cooperative. 2 chronic alcoholism 3 abnormal LFTs related to alcoholism 4 mild thrombocytopenia, alcohol abuse 5 depression 6 hypokalemia and magnesium, improved Plan The patient was seen and evaluated by Dr. Luo He is cleared for transfer out of the ICU Continue to monitor for delirium tremens Police need to be notified prior to the patient's discharge I, the cosigning physician, performed a history & physical examination of the patient. Lungs sounds are clear. Maintaining good O2 saturations in the 90s on room air. I discussed the assessment and plan of care with my nurse practitioner, Syeda Espinoza. I attest to the above note as dictated by her.
--- NOTE | 2020-01-19 16:40 | P.PN ---
Subjective Progress Note Date: 01/19/20 (delayed charting seen at 1100) Principal diagnosis: altered mentation Patient is a 24-year-old -Dominican male with a history of chronic alcohol dependency, prior withdrawal seizure, tobacco abuse, prior history of alcohol withdrawal who presented to the emergency department after he was found sitting in the passenger seat diaphoretic and confused in the car. In the ER they felt the patient was possibly post ictal and he does have a history of withdrawal seizures in the past. On arrival his vital signs are within normal limits. Laboratory analysis showed a low platelet count 132, sodium 135, carbon dioxide 20, BUN 5, creatinine 0.65, AST 262, ALT 86, alkaline phosphatase 169, and CK 332. Urinalysis was negative. Urine drug screen was positive for benzos [place] uri this was obtained after he had been treated with Ativan. He underwent a gallbladder ultrasound which showed fatty infiltration of the liver was negative for gallstones or dilated ducts. He was admitted for acute alcohol withdrawal concerns for impending DTs and possible alcohol withdrawal seizure. He was started on a multivitamin bag, CIWA protocol with Ativan, and psychiatry was consulted. He was noted to have a right hand deformity. Orthopedic surgery was consulted and this was consistent with an inclusion or ganglion cyst and they recommended follow-up in the outpatient setting. Despite treatment with CIWA protocol his agitation and confusion increased and his DTs became more si gnificant. He was requiring copious amounts of Ativan was subsequently transitioned to the ICU. Psychiatry evaluated the patient and recommended the addition of Zyprexa. He did require physical restraints as Ativan was not able to control his agitation. Precedex gtt started on the evening of 01/18 with rapid improvement in his symptoms. He was no longer requiring ativan on 01/19 he was started on low dose librium. Patient seen and examined at bedside. Awake, alert, deneis pain, nausea, diaph roesis, no anxiety, no shortness of breath, no hallucinations, no POST, + tremors Objective - Vital Signs Vital signs: Vital Signs Temp 97.9 F 01/19/20 08:00 Pulse 75 01/19/20 11:00 Resp 16 01/19/20 11:00 BP 124/85 01/19/20 11:00 Pulse Ox 97 01/19/20 11:00 Intake & Output 01/18/20 01/19/20 01/19/20 18:59 06:59 18:59 Intake Total 1800 1400 531.642 Output Total 1525 Balance 275 1400 531.642 Intake: IV 1600 1400 500 Magnesium Sulfate-D5w Pmx 300 1 gm In Dextrose/Water 1 100ml.bag @ 100 mls/hr IVPB Q1H [facility] Rx#: [id number] Mvi, Adult No.4 with Vit 600 K 10 ml Thiamine 100 mg Folic Acid 1 mg In Sodium Chloride 0.9% 1,000 ml @ 100 mls/hr IV .BY DURATION [facility] Rx#: [id number] Potassium Chloride 10 meq 300 In Water For Injection 1 100ml.bag @ 100 mls/hr IVPB Q1HR [facility] Rx#: [id number] Sodium Chloride 0.9% 1, 400 1400 500 000 ml @ 100 mls/hr IV . BY DURATION [facility] Rx#: [id number] Intake, IV Titration 31.642 Amount Dexmedetomidine/0.9% NaCl 31.642 (Pmx) 400 mcg In Empty Bag 1 bag @ Titrate IV . Q0M [facility] Rx#:[id number] Oral 200 Output: Urine 1525 Other: Voiding Method Urinal Urinal Diaper Diaper # Voids 1 2 1 - Exam General: non toxic, no distress, appears younger than stated age Derm: warm, dry Head: atraumatic, normocephalic, symmetric Eyes: EOMI, no lid lag, anicteric sclera Mouth: no lip lesion, mucus membranes moist Cardiovascular: S1S2 tachy, no murmur, positive posterior tibial pulse bilateral, Lungs: CTA bilateral, no rhonchi, no rales , no accessory muscle use Abdominal: soft, nontender to palpation, no guarding, no appreciable organomegaly Ext: no gross muscle atrophy, no edema, no contractures Neuro: CN II-XI grossly intact, no focal neuro deficits Psych: awake, alert , appropriate affect - Labs CBC & Chem 7: 01/19/20 04:27 01/19/20 04:27 Labs: Abnormal Lab Results - Last 24 Hours (Table) 01/19/20 01/19/20 01/19/20 Range/Units 04:27 04:27 05:21 RBC 3.75 L (4.30-5.90) m/uL MCV 108.3 H (80.0-100.0) fL Carbon Dioxide 18 L (22-30) mmol/L BUN 4 L (9-20) mg/dL Creatinine 0.52 L (0.66-1.25) mg/dL Glucose 57 L (74-99) mg/dL POC Glucose (mg/dL) 67 L (75-99) mg/dL AST 130 H (17-59) U/L ALT 52 H (4-49) U/L 01/19/20 Range/Units 05:51 RBC (4.30-5.90) m/uL MCV (80.0-100.0) fL Carbon Dioxide (22-30) mmol/L BUN (9-20) mg/dL Creatinine (0.66-1.25) mg/dL Glucose (74-99) mg/dL POC Glucose (mg/dL) 177 H (75-99) mg/dL AST (17-59) U/L ALT (4-49) U/L Assessment and Plan Assessment: Delirium Tremens - no longer trigger CIWA and precedex off, start low dose librium - seizure precautions - psych recs appreciated: on zyprexa - MVI bag changed to oral thiamine and folic acid - continue with sitter ETOH Hepatitis - stable - follow liver enzymes - abstain from alcohol fatty liver - due to ETOH use - avoid ETOH Depression - psych recs - on zyprexa Thrombocytopenia, resolved Hyponatremia, resolved Hypomagnesemia and hypokalemia, resolved DVT prophylaxis: Frequent movement Discussed with: Patients girl friend, nursing Anticipated discharge: unknown Anticipated discharge place: unknown A total of 35 minutes was spent on the care of this complex patient more than 50% of the time was spent in counseling and care coordination.
[2020-01-19] MEDS ORDERED: THIAMINE 100 MG TAB PO SCH (17:30)
[2020-01-19] MEDS: FOLIC ACID 1 MG TAB PO SCH (18:41)
[2020-01-19 18:47] LABS: Glucose,Whole Blood 93 mg/dL (75-99)
[2020-01-19] MEDS ORDERED: THIAMINE 100 MG/ML 2 ML VIAL IM STA (19:20)
[2020-01-19] MEDS ORDERED: LORazepam 2 MG/ML INJ IV PRN ×3 (19:20)
[2020-01-20 04:49] LABS: HCT 37.2 % (39.0-53.0); HGB 11.9 gm/dL (13.0-17.5); MCH 33.7 pg (25.0-35.0); MCV 105.2 fL (80.0-100.0); Macrocytosis Slight; Mean Platelet Volume 8.5; Platelet Count 176 k/uL (150-450); RBC 3.53 m/uL (4.30-5.90); RDW 12.1 % (11.5-15.5); WBC 6.5 k/uL (3.8-10.6)
[2020-01-20 05:03] LABS: ALT 38 U/L (4-49); AST 80 U/L (17-59); African American GFR (CKD) >90 (>60 ml/min/1.73 sqM); Albumin 3.8 g/dL (3.5-5.0); Alkaline Phosphatase 105 U/L (38-126); Anion Gap 6 mmol/L; Blood Urea Nitrogen 10 mg/dL (9-20); Carbon Dioxide 25 mmol/L (22-30); Chloride 104 mmol/L (98-107); Glucose 120 mg/dL (74-99); Non-African American GFR(CKD) >90 (>60 ml/min/1.73 sqM); Potassium 3.5 mmol/L (3.5-5.1); Sodium 135 mmol/L (137-145); Total Bilirubin 0.4 mg/dL (0.2-1.3); Total Protein 6.8 g/dL (6.3-8.2)
[2020-01-20 07:00] LABS: Glucose,Whole Blood 97 mg/dL (75-99)
[2020-01-20] MEDS: MULTIVITAMINS, THERA 1 EACH TAB PO SCH (09:00)
[2020-01-20] MEDS: PANTOPRAZOLE 40 MG TABLET PO SCH (09:00)
[2020-01-20] MEDS: OLANZapine 5 MG TAB PO SCH (09:00)
[2020-01-20] MEDS: THIAMINE 100 MG TAB PO SCH ×2 (09:00→17:15)
[2020-01-20] MEDS: FOLIC ACID 1 MG TAB PO SCH (09:01)
[2020-01-20 12:09] LABS: Glucose,Whole Blood 435 mg/dL (75-99)
[2020-01-20 12:15] LABS: Glucose,Whole Blood 177 mg/dL (75-99)
--- NOTE | 2020-01-20 12:46 | P.PN ---
Subjective Progress Note Date: 01/20/20 Principal diagnosis: Acute alcohol withdrawal, acute delirium tremens This is a 74-year-old -Bhut[place] male patient, alcoholic, who came in to the hospital after he had a seizure. He was trying to quit alcohol drinking completely. He didn't seize. He does not have history of epilepsy in his seizures have been essentially related to alcohol related activity. He reported that he enjoyed drinking and he had mixed emotions about how this was affecting people around him. He decided to quit drinking. Since his admission, the patient went into full-blown delirium tremens. Earlier this morning, I was contacted by the hospitalist requesting in ICU transfer as the patient has been very difficult to take care of. He was having restlessness, agitation, confusion, visual and tactile hallucination. He was given a total of 12 mg of Ativan, 4 mg of Haldol, Zyprexa 5 mg 2 doses yesterday and is currently in 4. restraints. The last 2 mg doses of Ativan was given just right at the time of my dictation. No emesis. No aspiration. No respiratory distress. Currently is on room air oxygen. He is also on thiamine and folate. He is receiving IV fluids. No further seizure activity has been noted. Reevaluated today on 01/20/20, patient remains in the intensive care unit, doing quite well, presently calm, cooperative, on room air, in no distress. Patient remains on the alcohol withdrawal protocol, and seems to be doing great over the last 2 days. Labs today were reviewed relatively normal electrolytes, normal renal profile and a relatively normal CBC. Objective - Vital Signs Vital signs: Vital Signs Temp 98.2 F 01/20/20 08:00 Pulse 84 01/20/20 08:00 Resp 16 01/20/20 08:00 BP 111/69 01/20/20 08:00 Pulse Ox 95 01/20/20 08:00 Intake & Output 01/19/20 01/20/20 01/20/20 18:59 06:59 18:59 Intake Total 904.344 450 Output Total 0 Balance 904.344 450 Intake: IV 500 Sodium Chloride 0.9% 1, 500 000 ml @ 100 mls/hr IV . BY DURATION [facility] Rx#: [id number] Intake, IV Titration 34.344 Amount Dexmedetomidine/0.9% NaCl 34.344 (Pmx) 400 mcg In Empty Bag 1 bag @ Titrate IV . Q0M [facility] Rx#:[id number] Oral 370 450 Output: Urine 0 Other: Voiding Method Urinal Urinal Urinal # Voids 1 1 - Exam Physical Exam: Revealed a 24-year-old male in no distress. Head: Atraumatic, normocephalic. HEENT:[Neck is supple.] [No neck masses.] [No thyromegaly.] [No JVD.] Chest: [Clear throughout, no crackles, no rhonchi, no wheezes.] Cardiac Exam: [Normal S1 and S2, no S3 gallop, no murmur.] Abdomen: [Soft, nontender, no megaly, no rebound, no guarding, normal bowel sounds.] Extremities: [No clubbing, no edema, no cyanosis.] Neurological Exam: [No focal neurologic deficit.] Alert and oriented 3. Psychiatric: Normal mood affect and normal mental status examination. Skin: No rashes. Musculoskeletal, no deformities, no limitation in range of motion. Tone is normal. Lymphatics: No lymphadenopathy - Labs CBC & Chem 7: 01/20/20 04:32 01/20/20 04:32 Labs: Abnormal Lab Results - Last 24 Hours (Table) 01/20/20 01/20/20 01/20/20 Range/Units 04:32 04:32 12:07 RBC 3.53 L (4.30-5.90) m/uL Hgb 11.9 L (13.0-17.5) gm/dL Hct 37.2 L (39.0-53.0) % MCV 105.2 H (80.0-100.0) fL Sodium 135 L (137-145) mmol/L Creatinine 0.54 L (0.66-1.25) mg/dL Glucose 120 H (74-99) mg/dL POC Glucose (mg/dL) 435 H (75-99) mg/dL AST 80 H (17-59) U/L 01/20/20 Range/Units 12:12 RBC (4.30-5.90) m/uL Hgb (13.0-17.5) gm/dL Hct (39.0-53.0) % MCV (80.0-100.0) fL Sodium (137-145) mmol/L Creatinine (0.66-1.25) mg/dL Glucose (74-99) mg/dL POC Glucose (mg/dL) 177 H (75-99) mg/dL AST (17-59) U/L Assessment and Plan Assessment: 1 delirium tremens secondary to alcohol withdrawal. Initiated on Precedex and is much more calm and cooperative. 2 chronic alcoholism 3 abnormal LFTs related to alcoholism 4 mild thrombocytopenia, alcohol abuse 5 depression recommendation: Continue present protocol. Consider transferring the patient out of the ICU to a regular medical floor, and considered to have a sitter at bedside. Consider discharge planning in the next 24-48 hours. We will sign off and see the patient on when necessary basis once he is out of the ICU. Time with Patient: Less than 30
--- NOTE | 2020-01-20 14:38 | P.PN ---
Progress Note - Text Progress Note Date: 01/20/20 Psychiatric progress note: Interval History: Patient was seen today by a teletypewriter operator at the bedside for presenting to the ER on the after having a seizure at home and was noted to be in severe alcohol withdrawal and needed transfer to the ICU. Patient has been given several doses of Ativan and Haldol and Zyprexa and was previously on 4 point restraints. Psychiatry was asked to see patient again today to evaluate need for Zyprexa given current alcohol withdrawal. Nurse caring for patient states that patient may be discharged within the next 24-48 hours and has been sleeping through most of the day however has been more appropriate and calmer. No Ativan has been given to patient today for CIWA. Patient was noted to be sleeping at the bedside and appeared to be lethargic. He did engage after being woken by teletypewriter operator and states that he is living in with his girlfriend and described the events prior to coming into the hospital. He states he does not remember most of what happened and appeared to be concerned. He denied any problems with his mood at this time and denied any depression. He states that he is trembling in his hands however this has decreased over the past few days. Patient did explain that he has been drinking about 4 beers a day at home since he was 13 years old. He states that he has been having mild visual hallucinations of odd experiences and "strings in the air" he denies any auditory hallucinations at this time. At this time patient denies any suicidal or homical ideations, intent or plan. Patient denies any paranoia or delusions. Patient denies any side effects from the medications and has been compliant with meds. Luncheonette Manager spoke with patient ab out rehab and patient claims that he would be interested in going at this time. Mental Status Exam: General Appearance: Patient appears to be stated age is lethargic however times to cooperate. Marginal hygiene and grooming Behavior: Patient is laying in bed without any agitated behavior. Times to cooperate. Speech: Patient's speech is fluent and nonpressured. Soft tone. Mood/Affect: Mood is improving, affect is congruent and constricted. Suicidality/Homicidality: Patient denies having any suicidal or homicidal ideation intent or plan. Perceptions: Patient admits to visual hallucinations however denies any auditory hallucinations Though content/process: There is no evidence of any delusional thought content and thought process is goal-directed. Guarded at times and poverty of content. Memory and concentration: AOX3, poor attention span. Judgment and insight: Improving mildly Assessment Alcohol use disorder, severe, currently in withdrawal and complicated by Delirium tremens Plan: -Patient currently does not meet the criteria for inpatient psychiatric admission. -Medications: Decreased Zyprexa to 5 mg daily at bedtime starting tomorrow for psychosis/aggression related to alcohol withdrawal. This medication can be continued for 1 week after discharge and then may be discontinued. -Continue with thiamine and multivitamin for chronic alcohol use. -When necessary Ativan as per [facility] protocol. Continue with Librium 10 mg twice a day and will be titrated off. -Continue with one-to-one sitter at this time for safety and for elopement precautions. Once patient is ready for discharge, primary team can discontinue sitter at their discretion. -SW on board for discharge planning. Luncheonette Manager spoke with patient about rehab for his alcohol abuse and patient claims that he would be interested in going at this time, social services technician to help patient with information regarding substance use rehab. According to nurse, police need to be notified once patient is ready for discharge as he may have pending charges. Patient will also require resources for psychiatric outpatient follow-up. -Patient should be cleared by medicine to be discharged in 1-2 days as he is nearing the end of the delirium tremens alcohol withdrawal window. -Psychiatry will sign off at this point, please contact for any specific questions.
[2020-01-20 17:49] LABS: Glucose,Whole Blood 135 mg/dL (75-99)
--- NOTE | 2020-01-20 17:58 | P.PN ---
Subjective Progress Note Date: 01/20/20 (delayed charting patient seen at 1045) Principal diagnosis: altered mentation Patient is a 24-year-old -[place] male with a history of chronic alcohol dependency, prior withdrawal seizure, tobacco abuse, prior history of alcohol withdrawal who presented to the emergency department after he was found sitting in the passenger seat diaphoretic and confused in the car. In the ER they felt the patient was possibly post ictal and he does have a history of withdrawal seizures in the past. On arrival his vital signs are within normal limits. Laboratory analysis showed a low platelet count 132, sodium 135, carbon dioxide 20, BUN 5, creatinine 0.65, AST 262, ALT 86, alkaline phosphatase 169, and CK 332. Urinalysis was negative. Urine drug screen was positive for benzos however this was obtained after he had been treated with Ativan. He underwent a gallbladder ultrasound which showed fatty infiltration of the liver was negative for gallstones or dilated ducts. He was admitted for acute alcohol withdrawal concerns for impending DTs and possible alcohol withdrawal seizure. He was started on a multivitamin bag, CIWA protocol with Ativan, and psychiatry was co nsulted. He was noted to have a right hand deformity. Orthopedic surgery was consulted and this was consistent with an inclusion or ganglion cyst and they recommended follow-up in the outpatient setting. Despite treatment with CIWA protocol his agitation and confusion increased and his DTs became more significant. He was requiring copious amounts of Ativan was subsequently transitioned to the ICU. Psychiatry evaluated the patient and recommended the addition of Zyprexa. He did require physical restraints as Ativan was not able to control his agitation. Precedex gtt started on the evening of 01/18 with rapid improvement in his symptoms. He was no longer requiring ativan on 01/[address] arted on low dose librium. He improved more on 01/21/20. Patient seen and examined at bedside. + POST overnight, no chest pain, SOB, no nausea, not anxious, + tremors, no hallucinations, no difficulty sitting still, c/o all over body aches Objective - Vital Signs Vital signs: Vital Signs Temp 98.4 F 01/20/20 15:33 Pulse 84 01/20/20 16:00 Resp 12 01/20/20 15:33 BP 121/71 01/20/20 15:33 Pulse Ox 97 01/20/20 15:33 Intake & Output 01/19/20 01/20/20 01/20/20 18:59 06:59 18:59 Intake Total 904.344 450 500 Output Total 0 Balance 904.344 450 500 Intake: IV 500 Sodium Chloride 0.9% 1, 500 000 ml @ 100 mls/hr IV . BY DURATION [facility] Rx#: [id number] Intake, IV Titration 34.344 Amount Dexmedetomidine/0.9% NaCl 34.344 (Pmx) 400 mcg In Empty Bag 1 bag @ Titrate IV . Q0M [facility] Rx#:[id number] Oral 370 450 500 Output: Urine 0 Other: Voiding Method Urinal Urinal Urinal # Voids 1 1 1 - Exam General: non toxic, no distress, appears younger than stated age Derm: warm, dry Head: atraumatic, normocephalic, symmetric Eyes: EOMI, no lid lag, anicteric sclera Mouth: no lip lesion, mucus membranes moist Cardiovascular: S1S2 tachy, no murmur, positive posterior tibial pulse bilateral, Lungs: CTA bilateral, no rhonchi, no rales , no accessory muscle use Abdominal: soft, nontender to palpation, no guarding, no appreciable organomegaly Ext: no gross muscle atrophy, no edema, no contractures Neuro: CN II-XI grossly intact, no focal neuro deficits, + tremors Psych: awake, alert , appropriate affect - Labs CBC & Chem 7: 01/20/20 04:32 01/20/20 04:32 Labs: Abnormal Lab Results - Last 24 Hours (Table) 01/20/20 01/20/20 01/20/20 Range/Units 04:32 04:32 12:07 RBC 3.53 L (4.30-5.90) m/uL Hgb 11.9 L (13.0-17.5) gm/dL Hct 37.2 L (39.0-53.0) % MCV 105.2 H (80.0-100.0) fL Sodium 135 L (137-145) mmol/L Creatinine 0.54 L (0.66-1.25) mg/dL Glucose 120 H (74-99) mg/dL POC Glucose (mg/dL) 435 H (75-99) mg/dL AST 80 H (17-59) U/L 01/20/20 Range/Units 12:12 RBC (4.30-5.90) m/uL Hgb (13.0-17.5) gm/dL Hct (39.0-53.0) % MCV (80.0-100.0) fL Sodium (137-145) mmol/L Creatinine (0.66-1.25) mg/dL Glucose (74-99) mg/dL POC Glucose (mg/dL) 177 H (75-99) mg/dL AST (17-59) U/L Assessment and Plan Assessment: Delirium Tremens - no longer trigger CIWA and precedex off, librium decreased - seizure precautions - psych recs appreciated: on zyprexa, decreased to once daily, pull off in 7 days - thiamine and folic acid - continue with sitter - social work to eval for possibility for inpatient psych ETOH Hepatitis - improving - follow liver enzymes - abstain from alcohol fatty liver - due to ETOH use - avoid ETOH Depression - psych recs - on zyprexa Thrombocytopenia, resolved Hyponatremia, resolved Hypomagnesemia and hypokalemia, resolved DVT prophylaxis: Frequent movement Discussed with: Patient, nursing Anticipated discharge: 1-[address]: inpatient rehab vs home A total of 25 minutes was spent on the care of this complex patient more than 50% of the time was spent in counseling and care coordination.
[2020-01-20 23:37] LABS: Glucose,Whole Blood 113 mg/dL (75-99)
[2020-01-21 04:59] LABS: African American GFR (CKD) >90 (>60 ml/min/1.73 sqM); Anion Gap 8 mmol/L; Blood Urea Nitrogen 5 mg/dL (9-20); Calcium 9.3 mg/dL (8.4-10.2); Carbon Dioxide 27 mmol/L (22-30); Chloride 101 mmol/L (98-107); Glucose 96 mg/dL (74-99); Non-African American GFR(CKD) >90 (>60 ml/min/1.73 sqM); Sodium 136 mmol/L (137-145)
[2020-01-21 05:20] LABS: Basophils % (A) 1 %; Eosinophils # (A) 0.2 k/uL (0-0.7); Eosinophils % (A) 2 %; HCT 38.8 % (39.0-53.0); HGB 12.4 gm/dL (13.0-17.5); Lymphocytes # (A) 1.1 k/uL (1.0-4.8); Lymphocytes % (A) 17 %; MCH 34.1 pg (25.0-35.0); MCV 106.3 fL (80.0-100.0); Macrocytosis Slight; Monocytes # (A) 0.8 k/uL (0-1.0); Monocytes % (A) 11 %; Neutrophils # (A) 4.4 k/uL (1.3-7.7); Neutrophils % (A) 66 %; Platelet Count 204 k/uL (150-450); RBC 3.65 m/uL (4.30-5.90); RDW 12.4 % (11.5-15.5); WBC 6.7 k/uL (3.8-10.6)
[2020-01-21] MEDS: THIAMINE 100 MG TAB PO SCH (06:45)
[2020-01-21] MEDS: PANTOPRAZOLE 40 MG TABLET PO SCH (06:45)
[2020-01-21 08:07] VITALS: RESP 16; TEMP 98.1
[2020-01-21] MEDS: MULTIVITAMINS, THERA 1 EACH TAB PO SCH (08:09)
[2020-01-21] MEDS: FOLIC ACID 1 MG TAB PO SCH (08:09)
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
[2020-01-21 12:28] VITALS: BP 137/84; PULSE 112
[2020-01-21] MEDS ORDERED: OLANZapine 5 MG TAB PO SCH (21:00)
== END 2020-01-21 13:34 | disposition home or self-care (01) | DRG 897 ==
LOC: EC 17:38 → 4SSUR 19:55 → OBSVTOIN 01-17 10:06 → 2SICU 01-17 15:02
PROVIDERS: ADMIT Family Medicine; ATTEND Family Medicine
DX: F10.231 Alcohol dependence with withdrawal delirium (principal); E87.1 Hypo-osmolality and hyponatremia; K70.10 Alcoholic hepatitis without ascites; D69.59 Other secondary thrombocytopenia; K76.0 Fatty (change of) liver, not elsewhere classified; R56.9 Unspecified convulsions; E83.42 Hypomagnesemia; E87.6 Hypokalemia; F41.9 Anxiety disorder, unspecified; F32.9 Major depressive disorder, single episode, unspecified; M67.441 Ganglion, right hand; E66.9 Obesity, unspecified; Z68.22 Body mass index [BMI] 22.0-22.9, adult; F17.200 Nicotine dependence, unspecified, uncomplicated; Z78.1 Physical restraint status; Z71.41 Alcohol abuse counseling and surveillance of alcoholic
CPT/HCPCS: 36415; 76705; 80048; 80053; 80156; 80164; 80185; 80306; 81001; 82075; 82550; 83690; 83735; 84100; 84132; 85025; 85027; 93005; 94760; 96365; 96366; 96372; 96374; 96375; 96376; 99285

== ENCOUNTER 2020-01-31 11:04 | Emergency (ER) | payer OTHER ==
[2020-01-31 11:13] VITALS: TEMP 98.7
[2020-01-31] MEDS ORDERED: SODIUM CHLORIDE 0.9% 1,000 ML IV ONE (11:59)
[2020-01-31] MEDS ORDERED: ONDANSETRON 4 MG/2 ML VIAL IVP STA (11:59)
[2020-01-31] MEDS ORDERED: chlordiazePOXIDE 25 MG CAP PO STA (12:00)
--- NOTE | 2020-01-31 13:20 | ED ---
General Adult HPI - General Chief complaint: Nausea/Vomiting/Diarrhea Stated complaint: alcohol withdrawals Time Seen by Provider: 01/31/20 11:20 Source: patient, RN notes reviewed, old records reviewed Mode of arrival: ambulatory Limitations: no limitations - History of Present Illness Initial comments: Patient is a 24 year old male whom presents with concern for alcohol withdrawals, nausea. PAtient was admitted 2 weeks ago for etoh abuse and seizure. Patient reports that last night he celebrated last night for sobriety for 2 weeks by drinking. Patient states he had beers and [place] last night. Patient reports that he is nauseated today. Denies seizure activity. - Related Data Previous Rx's Medication Instructions Recorded Folic Acid 1 mg PO DAILY #30 tab 01/21/20 Multivitamins, Thera [Multivitamin 1 each PO DAILY #30 tab 01/21/20 (formulary)] OLANZapine [ZyPREXA] 5 mg PO HS #7 tab 01/21/20 Pantoprazole [Protonix] 40 mg PO AC-BRKFST #30 tablet. 01/21/20 Thiamine [Vitamin B-1] 100 mg PO BID-W/MEALS #60 tab 01/21/20 Ondansetron Odt [Zofran Odt] 4 mg PO Q8HR PRN #12 tab 01/31/20 chlordiazePOXIDE HCl [Librium] 20 mg PO TID 3 Days #18 capsule 01/31/20 Allergies Allergy/AdvReac Type Severity Reaction Status Date / Time No Known Allergies Allergy Verified 01/31/20 11:13 Review of Systems ROS Statement: Those systems with pertinent positive or pertinent negative responses have been documented in the HPI. ROS Other: All systems not noted in ROS Statement are negative. Past Medical History Past Medical History: No Reported History Additional Past Medical History / Comment(s): Previous seizures alcohol related, alcoholism History of Any Multi-Drug Resistant Organisms: None Reported Past Surgical History: No Surgical Hx Reported Past Anesthesia/Blood Transfusion Reactions: No Reported Reaction Past Psychological History: No Psychological Hx Reported Smoking Status: Current some day smoker Past Alcohol Use History: Heavy Past Drug Use History: None Reported General Exam - General Exam Comments Initial Comments: 24 year old male, no distress. Limitations: no limitations General appearance: alert, in no apparent distress Head exam: Present: atraumatic, normocephalic, normal inspection Eye exam: Present: normal appearance, PERRL, EOMI. Absent: scleral icterus, conjunctival injection, periorbital swelling ENT exam: Present: normal exam, mucous membranes moist Neck exam: Present: normal inspection. Absent: tenderness, meningismus, lymphadenopathy Respiratory exam: Present: normal lung sounds bilaterally. Absent: respiratory distress, wheezes, rales, rhonchi, stridor Cardiovascular Exam: Present: regular rate, normal rhythm, normal heart sounds. Absent: systolic murmur, diastolic murmur, rubs, gallop, clicks Extremities exam: Present: normal inspection, full ROM, normal capillary refill. Absent: tenderness, pedal edema, joint swelling, calf tenderness Back exam: Present: normal inspection Neurological exam: Present: alert, oriented X3, CN II-XII intact Psychiatric exam: Present: normal affect, normal mood Skin exam: Present: warm, dry, intact, normal color. Absent: rash Course Vital Signs 01/31/20 01/31/20 11:10 13:46 Temperature 98.7 F Pulse Rate 74 72 Respiratory 18 16 Rate Blood Pressure 119/73 110/64 O2 Sat by Pulse 100 100 Oximetry Medical Decision Making - Medical Decision Making 24 year old male presents today for nausea after binge drinking. Patient given IV fluids, no abdominal tenderness, no vomiting. Given zofran and no further nausea. PAtient advised he needs to stop drinking, given resources for AA and will Rx librium. Discussed return parameters. DC with zofran as well. Disposition Clinical Impression: ETOH abuse, Nausea Disposition: HOME SELF-CARE Condition: Good Instructions (If sedation given, give patient instructions): Abuse of Alcohol (ED) Additional Instructions: Patient advised to rest, increase fluid intake. Stop drinking. Discuss Vivitrol medication with PCP. Return to emergency department if any alarming signs or symptoms occur. Prescriptions: chlordiazePOXIDE HCl [Librium] 20 mg PO TID 3 Days #18 capsule Ondansetron Odt [Zofran Odt] 4 mg PO Q8HR PRN #12 tab PRN Reason: Nausea Is patient prescribed a controlled substance at d/c from ED?: No Referrals: Fred Richardson MD [Primary Care Provider] - 1-2 days Time of Disposition: 13:17
[2020-01-31 13:47] VITALS: BP 110/64; PULSE 72; RESP 16
== END 2020-01-31 13:50 | disposition home or self-care (01) ==
LOC: EC 11:04
DX: F10.10 Alcohol abuse, uncomplicated (principal); F17.200 Nicotine dependence, unspecified, uncomplicated
CPT/HCPCS: 99283; 96374; 96361; J2405

== ENCOUNTER 2020-02-27 14:52 | Emergency (ER) | payer OTHER ==
[2020-02-27 15:05] VITALS: BP 127/80; PULSE 83; RESP 20; TEMP 98.6
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
== END 2020-02-27 15:33 | disposition home or self-care (01) ==
LOC: EC 14:52
DX: F10.20 Alcohol dependence, uncomplicated (principal); F17.200 Nicotine dependence, unspecified, uncomplicated
CPT/HCPCS: 99283

== ENCOUNTER 2020-03-21 20:20 | Inpatient (IN) | payer OTHER ==
[2020-03-21] MEDS ORDERED: LORazepam 2 MG/ML INJ IV STA (20:35)
--- NOTE | 2020-03-21 21:04 | ED ---
General Adult HPI - General Chief complaint: Alcohol Stated complaint: ETOH withdrawal Time Seen by Provider: 03/21/20 20:27 Source: patient, EMS, RN notes reviewed Mode of arrival: EMS Limitations: no limitations - History of Present Illness Initial comments: 24-year-old male with a past medical history of chronic alcoholism, alcohol withdrawal with seizures presents to the emergency department for alcohol withdrawal. Patient states that he drinks several beers daily. States he last drink this morning. States that today he started having tremors that he believes are related to alcohol withdrawal. He states that his muscles are spasming in his legs. Patient has no other complaints at this time including shortness of breath, chest pain, abdominal pain, nausea or vomiting, headache, or visual changes. - Related Data Previous Rx's Medication Instructions Recorded Folic Acid 1 mg PO DAILY #30 tab 01/21/20 Multivitamins, Thera [Multivitamin 1 each PO DAILY #30 tab 01/21/20 (formulary)] OLANZapine [ZyPREXA] 5 mg PO HS #7 tab 01/21/20 Pantoprazole [Protonix] 40 mg PO AC-BRKFST #30 tablet. 01/21/20 Thiamine [Vitamin B-1] 100 mg PO BID-W/MEALS #60 tab 01/21/20 Ondansetron Odt [Zofran Odt] 4 mg PO Q8HR PRN #12 tab 01/31/20 chlordiazePOXIDE HCl [Librium] 20 mg PO TID 3 Days #18 capsule 01/31/20 Allergies Allergy/AdvReac Type Severity Reaction Status Date / Time No Known Allergies Allergy Verified 02/27/20 15:05 Review of Systems ROS Statement: Those systems with pertinent positive or pertinent negative responses have been documented in the HPI. ROS Other: All systems not noted in ROS Statement are negative. Past Medical History Past Medical History: No Reported History Additional Past Medical History / Comment(s): Previous seizures alcohol related, alcoholism History of Any Multi-Drug Resistant Organisms: None Reported Past Surgical History: No Surgical Hx Reported Past Anesthesia/Blood Transfusion Reactions: No Reported Reaction Past Psychological History: Anxiety, Depression Smoking Status: Current every day smoker Past Alcohol Use History: Daily, Heavy Past Drug Use History: None Reported General Exam Limitations: no limitations General appearance: alert, in no apparent distress, anxious Head exam: Present: atraumatic, normocephalic, normal inspection Eye exam: Present: normal appearance, PERRL, EOMI. Absent: scleral icterus, conjunctival injection, periorbital swelling ENT exam: Present: normal exam, mucous membranes moist Neck exam: Present: normal inspection, full ROM. Absent: tenderness, meningismus, lymphadenopathy Respiratory exam: Present: normal lung sounds bilaterally. Absent: respiratory distress, wheezes, rales, rhonchi, stridor Cardiovascular Exam: Present: regular rate, normal rhythm, normal heart sounds. Absent: systolic murmur, diastolic murmur, rubs, gallop, clicks GI/Abdominal exam: Present: soft, normal bowel sounds. Absent: distended, tenderness, guarding, rebound, rigid Neurological exam: Present: alert Course Vital Signs 03/21/20 03/21/20 03/21/20 20:24 21:00 21:30 Temperature 99.1 F Pulse Rate 83 94 105 H Respiratory 18 16 16 Rate Blood Pressure 108/60 102/78 130/61 O2 Sat by Pulse 98 98 97 Oximetry 03/21/20 03/21/20 22:00 22:30 Temperature Pulse Rate 90 94 Respiratory 16 16 Rate Blood Pressure 106/53 105/45 O2 Sat by Pulse 99 98 Oximetry Medical Decision Making - Medical Decision Making CBC shows a white count of 2.4. CMP does show an anion gap of 23. Patient does have ketonuria with 2+ ketones. This could be related to starvation ketosis. Alcohol 108. Patient is visibly shaking and has a history of seizures. States he is trying to quit drinking. At this time we will keep patient overnight on [facility] protocol. - Lab Data Result diagrams: 03/21/20 20:36 03/21/20 20:36 Lab Results 03/21/20 03/21/20 03/21/20 Range/Units 20:36 20:36 21:51 WBC 12.4 H (3.8-10.6) k/uL RBC 4.50 (4.30-5.90) m/uL Hgb 15.1 (13.0-17.5) gm/dL Hct 46.6 (39.0-53.0) % MCV 103.5 H (80.0-100.0) fL MCH 33.5 (25.0-35.0) pg MCHC 32.3 (31.0-37.0) g/dL RDW 12.9 (11.5-15.5) % Plt Count 215 (150-450) k/uL Neutrophils % 76 % Lymphocytes % 16 % Monocytes % 4 % Eosinophils % 2 % Basophils % 0 % Neutrophils # 9.5 H (1.3-7.7) k/uL Lymphocytes # 2.0 (1.0-4.8) k/uL Monocytes # 0.5 (0-1.0) k/uL Eosinophils # 0.2 (0-0.7) k/uL Basophils # 0.1 (0-0.2) k/uL Macrocytosis Slight Sodium 135 L (137-145) mmol/L Potassium 4.3 (3.5-5.1) mmol/L Chloride 92 L (98-107) mmol/L Carbon Dioxide 20 L (22-30) mmol/L Anion Gap 23 mmol/L BUN 6 L (9-20) mg/dL Creatinine 0.68 (0.66-1.25) mg/dL Est GFR (CKD-EPI)AfAm >90 (>60 ml/min/1.73 sqM) Est GFR (CKD-EPI)NonAf >90 (>60 ml/min/1.73 sqM) Glucose 65 L (74-99) mg/dL POC Glucose (mg/dL) (75-99) mg/dL POC Glu [employer] ID Calcium 10.3 H (8.4-10.2) mg/dL Magnesium 1.8 (1.6-2.3) mg/dL Total Bilirubin 0.7 (0.2-1.3) mg/dL AST 46 (17-59) U/L ALT 15 (4-49) U/L Alkaline Phosphatase 147 H (38-126) U/L Total Protein 8.8 H (6.3-8.2) g/dL Albumin 5.2 H (3.5-5.0) g/dL Urine Color Yellow Urine Appearance Clear (Clear) Urine pH 5.5 (5.0-8.0) Ur Specific [place] 1.019 (1.001-1.035) Urine Protein Trace H (Negative) Urine Glucose (UA) Negative (Negative) Urine Ketones 2+ H (Negative) Urine Blood Negative (Negative) Urine Nitrite Negative (Negative) Urine Bilirubin Negative (Negative) Urine Urobilinogen <2.0 (<2.0) mg/dL Ur Leukocyte Esterase Negative (Negative) Serum Alcohol 108 mg/dL 03/21/20 Range/Units 22:49 WBC (3.8-10.6) k/uL RBC (4.30-5.90) m/uL Hgb (13.0-17.5) gm/dL Hct (39.0-53.0) % MCV (80.0-100.0) fL MCH (25.0-35.0) pg MCHC (31.0-37.0) g/dL RDW (11.5-15.5) % Plt Count (150-450) k/uL Neutrophils % % Lymphocytes % % Monocytes % % Eosinophils % % Basophils % % Neutrophils # (1.3-7.7) k/uL Lymphocytes # (1.0-4.8) k/uL Monocytes # (0-1.0) k/uL Eosinophils # (0-0.7) k/uL Basophils # (0-0.2) k/uL Macrocytosis Sodium (137-145) mmol/L Potassium (3.5-5.1) mmol/L Chloride (98-107) mmol/L Carbon Dioxide (22-30) mmol/L Anion Gap mmol/L BUN (9-20) mg/dL Creatinine (0.66-1.25) mg/dL Est GFR (CKD-EPI)AfAm (>60 ml/min/1.73 sqM) Est GFR (CKD-EPI)NonAf (>60 ml/min/1.73 sqM) Glucose (74-99) mg/dL POC Glucose (mg/dL) 198 H (75-99) mg/dL POC Glu [employer] ID Alfonso, Jono Calcium (8.4-10.2) mg/dL Magnesium (1.6-2.3) mg/dL Total Bilirubin (0.2-1.3) mg/dL AST (17-59) U/L ALT (4-49) U/L Alkaline Phosphatase (38-126) U/L Total Protein (6.3-8.2) g/dL Albumin (3.5-5.0) g/dL Urine Color Urine Appearance (Clear) Urine pH (5.0-8.0) Ur Specific [place] (1.001-1.035) Urine Protein (Negative) Urine Glucose (UA) (Negative) Urine Ketones (Negative) Urine Blood (Negative) Urine Nitrite (Negative) Urine Bilirubin (Negative) Urine Urobilinogen (<2.0) mg/dL Ur Leukocyte Esterase (Negative) Serum Alcohol mg/dL Disposition Clinical Impression: Alcohol withdrawal syndrome Disposition: ADMITTED IP TO THIS HOSP Condition: Good Is patient prescribed a controlled substance at d/c from ED?: No Referrals: Fred Richardson MD [Primary Care Provider] - 1-2 days Time of Disposition: 23:49
[2020-03-21 21:11] LABS: Basophils # (A) 0.1 k/uL (0-0.2); Basophils % (A) 0 %; Eosinophils # (A) 0.2 k/uL (0-0.7); Eosinophils % (A) 2 %; HCT 46.6 % (39.0-53.0); HGB 15.1 gm/dL (13.0-17.5); Lymphocytes % (A) 16 %; MCH 33.5 pg (25.0-35.0); MCHC 32.3 g/dL (31.0-37.0); MCV 103.5 fL (80.0-100.0); Macrocytosis Slight; Mean Platelet Volume 7.5; Monocytes # (A) 0.5 k/uL (0-1.0); Monocytes % (A) 4 %; Neutrophils # (A) 9.5 k/uL (1.3-7.7); Neutrophils % (A) 76 %; Platelet Count 215 k/uL (150-450); RDW 12.9 % (11.5-15.5); WBC 12.4 k/uL (3.8-10.6)
[2020-03-21 21:15] LABS: ALT 15 U/L (4-49); AST 46 U/L (17-59); African American GFR (CKD) >90 (>60 ml/min/1.73 sqM); Albumin 5.2 g/dL (3.5-5.0); Alkaline Phosphatase 147 U/L (38-126); Anion Gap 23 mmol/L; Blood Urea Nitrogen 6 mg/dL (9-20); Calcium 10.3 mg/dL (8.4-10.2); Carbon Dioxide 20 mmol/L (22-30); Chloride 92 mmol/L (98-107); Glucose 65 mg/dL (74-99); Magnesium 1.8 mg/dL (1.6-2.3); Non-African American GFR(CKD) >90 (>60 ml/min/1.73 sqM); Potassium 4.3 mmol/L (3.5-5.1); Sodium 135 mmol/L (137-145); Total Bilirubin 0.7 mg/dL (0.2-1.3); Total Protein 8.8 g/dL (6.3-8.2)
[2020-03-21 21:23] LABS: Alcohol 108 mg/dL
[2020-03-21] MEDS ORDERED: SODIUM CHLORIDE 0.9% 1,000 ML IV STA ×2 (21:37)
[2020-03-21] MEDS ORDERED: DEXTROSE 50% SYRINGE 50 ML IVP STA (21:37)
[2020-03-21 22:13] LABS: Appearance,Urine Clear (Clear); Bilirubin,Urine Negative (Negative); Blood,Urine Negative (Negative); Color,Urine Yellow; Glucose,Urine (UA) Negative (Negative); Ketones,Urine 2+ (Negative); Leukocyte Esterase,Urine Negative (Negative); Nitrite,Urine Negative (Negative); PH, Urine 5.5 (5.0-8.0); Protein,Urine Trace (Negative); Specific Gravity,Urine 1.019 (1.001-1.035); Urobilinogen,Urine <2.0 mg/dL (<2.0)
[2020-03-21 23:02] LABS: Glucose,Whole Blood 198 mg/dL (75-99)
[2020-03-21] MEDS ORDERED: NALOXONE 0.4 MG/ML 1 ML VIAL IV PRN (23:46)
[2020-03-21] MEDS ORDERED: THIAMINE 100 MG/ML 2 ML VIAL IM STA (23:48)
[2020-03-21] MEDS ORDERED: LORazepam 2 MG/ML INJ IV PRN ×2 (23:48)
[2020-03-21] MEDS: THIAMINE 100 MG TAB PO SCH (23:53)
[2020-03-22] MEDS: DEXTROSE 5%-0.9% NACL 1,000 ML IV SCH ×2 (02:42→14:32)
--- NOTE | 2020-03-22 09:04 | P.HPIM ---
History of Present Illness This is a pleasant 24 years old -Mexican male with history of chronic alcohol, local withdrawal seizure, history of anxiety and depression. Patient says that she drinks alcohol 4 or more beers every day, yesterday he started feeling nauseated and his body blocked that he could not move it due to pain with some shakiness, but no overt seizure activity and patient was fully awake all the time. No chest pain or abdominal pain or vomiting or change in urine or bowel habits. No fever Patient feels depressed sometimes and some days today he feels disappointed but he denies suicidal or homicidal ideation Patient denies smoking or illicit drugs Vitals are stable. WBC 12.4 K, rest of CBC is stable. Creatinine normal 0.6, sodium 135, sugar control. UA is no suspicious of infection, seroma call is elevated to 108, coronavirus not detected. EKG showed normal sinus rhythm at 90 bpm On admission patient was started on CIWA protocol, IV fluids and same Review of Systems CONSTITUTIONAL: No fever, no malaise, no fatigue. HEENT: No recent visual problems or hearing problems. Denied any sore throat. CARDIOVASCULAR: No orthopnea, PND, no palpitations, no syncope. PULMONARY: No shortness of breath, no cough, no hemoptysis. GASTROINTESTINAL: No diarrhea, no nausea, no vomiting, no abdominal pain. Normoactive bowel sounds. NEUROLOGICAL: No headaches, no weakness, no numbness. HEMATOLOGICAL: Denies any bleeding or petechiae. GENITOURINARY: Denies any burning micturition, frequency, or urgency. MUSCULOSKELETAL/RHEUMATOLOGICAL: Denies any joint pain, swelling, or any muscle pain. ENDOCRINE: Denies any polyuria or polydipsia. Past Medical History Past Medical History: No Reported History Additional Past Medical History / Comment(s): Previous seizures alcohol related, alcoholism History of Any Multi-Drug Resistant Organisms: None Reported Past Surgical History: No Surgical Hx Reported Past Anesthesia/Blood Transfusion Reactions: No Reported Reaction Past Psychological History: Anxiety, Depression Smoking Status: Former smoker Past Alcohol Use History: Daily, Heavy Additional Past Alcohol Use History / Comment(s): Patient states he quit smoking 2 months ago Past Drug Use History: None Reported - Past Family History Mother Family Medical History: No Reported History Medications and Allergies Home Medications Medication Instructions Recorded Confirmed Type Vivitrol 380mg Inj 380 mg IM QMONTH 03/22/20 03/22/20 History Allergies Allergy/AdvReac Type Severity Reaction Status Date / Time No Known Allergies Allergy Verified 02/27/20 15:05 Physical Exam Vitals: Vital Signs Temp Pulse Pulse Resp BP BP Pulse Ox 03/22/20 05:20 98.2 F 79 20 118/72 98 03/22/20 01:10 98.7 F 91 16 122/77 99 03/22/20 00:27 80 18 109/69 100 03/21/20 22:30 94 16 105/45 98 03/21/20 22:00 90 16 106/53 99 03/21/20 21:30 105 H 16 130/61 97 03/21/20 21:00 94 16 102/78 98 03/21/20 20:24 99.1 F 83 18 108/60 98 Intake and Output 03/21/20 03/22/20 03/22/20 22:59 06:59 14:59 Other: # Voids 0 Weight 57.606 kg 61.5 kg GENERAL: The patient is alert and oriented x3, not in any acute distress. Well developed, well nourished. HEENT: Pupils are round and equally reacting to light. EOMI. No scleral icterus. No conjunctival pallor. Normocephalic, atraumatic. No pharyngeal erythema. No thyromegaly. CARDIOVASCULAR: S1 and S2 present. No murmurs, rubs, or gallops. PULMONARY: Chest is clear to auscultation, no wheezing or crackles. ABDOMEN: Soft, nontender, nondistended, normoactive bowel sounds. No palpable organomegaly. MUSCULOSKELETAL: No joint swelling or deformity. EXTREMITIES: No cyanosis, clubbing, or pedal edema. NEUROLOGICAL: Gross neurological examination did not reveal any focal deficits. SKIN: No rashes. No petechiae Results CBC & Chem 7: 03/21/20 20:36 03/21/20 20:36 Labs: Abnormal Lab Results - Last 24 Hours (Table) 03/21/20 03/21/20 03/21/20 Range/Units 20:36 20:36 21:51 WBC 12.4 H (3.8-10.6) k/uL MCV 103.5 H (80.0-100.0) fL Neutrophils # 9.5 H (1.3-7.7) k/uL Sodium 135 L (137-145) mmol/L Chloride 92 L (98-107) mmol/L Carbon Dioxide 20 L (22-30) mmol/L BUN 6 L (9-20) mg/dL Glucose 65 L (74-99) mg/dL POC Glucose (mg/dL) (75-99) mg/dL Calcium 10.3 H (8.4-10.2) mg/dL Alkaline Phosphatase 147 H (38-126) U/L Total Protein 8.8 H (6.3-8.2) g/dL Albumin 5.2 H (3.5-5.0) g/dL Urine Protein Trace H (Negative) Urine Ketones 2+ H (Negative) 03/21/20 Range/Units 22:49 WBC (3.8-10.6) k/uL MCV (80.0-100.0) fL Neutrophils # (1.3-7.7) k/uL Sodium (137-145) mmol/L Chloride (98-107) mmol/L Carbon Dioxide (22-30) mmol/L BUN (9-20) mg/dL Glucose (74-99) mg/dL POC Glucose (mg/dL) 198 H (75-99) mg/dL Calcium (8.4-10.2) mg/dL Alkaline Phosphatase (38-126) U/L Total Protein (6.3-8.2) g/dL Albumin (3.5-5.0) g/dL Urine Protein (Negative) Urine Ketones (Negative) Thrombosis Risk Factor Assmnt - Choose All That Apply Any of the Below Risk Factors Present?: No Other Risk Factors: No Other congenital or acquired thrombophilia - If yes, enter type in comment: No Thrombosis Risk Factor Assessment Level: Very Low Risk Assessment and Plan Assessment: Alcohol abuse with alcohol withdrawal, risk for DT Depressed with no suicidal ideation Mild leukocytosis, mostly reactive. Nonicteric for antibiotics and follow-up Chronic alcohol problem with history of his alcohol withdrawal seizure, no evidence of seizure during this a dmission Plan: This is a pleasant 24 years male who presents with alcohol withdrawal, continue with CIWA protocol, continue with thiamine. Monitor for seizure. Call psych consult Labs and medication were reviewed.. Continue same treatment. Continue with symptomatic treatment. Resume home medication. Monitor lytes and vitals. DVT and GI prophylaxis. Further recommendations of the clinical course of the patient DVT prophylaxis: Subcutaneous heparin GI Prophylaxis: Pepcid Prognosis is guarded
[2020-03-22] MEDS: THIAMINE 100 MG TAB PO SCH ×2 (09:49→17:38)
--- NOTE | 2020-03-22 16:34 | CONS ---
CONSULTATION DATE OF SERVICE/DICTATION: 03/22/2020. IDENTIFYING DATA: This patient is a 24-year-old single male who was admitted to the medical floor to due to concern of impending alcohol withdrawal. We are asked to consult regarding alcohol use concerns. HISTORY OF PRESENT ILLNESS: The patient states that he has been drinking 4 22 ounce beers per day and has been doing this for several weeks if not months. He states he has been struggling with trying to remain sober. He did have just over 1 week of sobriety when he received his Vivitrol injection, but he does not feel it is enough to keep him sober. He states that he does feel that he is depressed. He endorses a major depressive episode when reviewing those criteria. He indicates having low energy, low motivation, depressed mood. He reports no hopeless thinking. He reports no suicidal ideation, intent or plan. He reports no homicidal ideation, intent or plan. He describes some anxiety symptoms that are nonspecific. He does not appear to have them pervasively and does not appear to have panic attacks. He endorses no hypomanic or manic episodes. He is endorsing no auditory or visual hallucinations. He is endorsing no specific delusions. He resides with his girlfriend and states that there are no firearms in the home. PAST PSYCHIATRIC HISTORY: No prior inpatient psychiatric hospitalizations. No history of suicide attempts. He states he has been on no psychotropic medications other than Vivitrol which he received earlier this month from his primary care physician. PAST MEDICAL HISTORY: None reported. ALLERGIES: No known drug allergies. CHEMICAL DEPENDENCY HISTORY: Alcohol use as noted. It appears he has been using alcohol in an abusive fashion for several years. He did attend rehab once at [facility]. He did not maintain sobriety for very long after being discharged. It does not appear that he attends AA. FAMILY PSYCHIATRIC HISTORY: He reports none other than knowing that his father abuses alcohol. No suicides in the family. SOCIAL HISTORY: The patient is 24 years old. He is single but does have a girlfriend. They do have a child together. He resides with his girlfriend. He graduated high school and attended some college. No history of service. LEGAL HISTORY: Includes arrest for driving on suspended license. ABUSE HISTORY: None reported. MENTAL STATUS EXAM: The patient is a 24-year-old male appearing his stated age. He is lying in bed. He is alert. He attends to the interview. He is dressed in hospital attire. Eye contact is intermittent. Speech is fluent spontaneous nonpressured. He endorses a depressed mood that is [id number] in nature. He reports no hopeless thinking. He reports no suicidal ideation, intent, or plan. He reports no homicidal ideation, intent, or plan. He is endorsing no auditory or visual hallucinations. There is no observed evidence of psychosis. He demonstrates no tangential thinking, loose associations or flight of ideas. He does not appear hypomanic or manic. He demonstrates no verbal or physical aggressiveness. He appears to be in no acute physical distress. There is no evidence of tremors related to alcohol withdrawal during our interaction. Insight and judgment grossly intact. Cognitively, he is alert, oriented to person, place, and date. He is able to name the days of the week backwards. IMPRESSIONS: Major depressive disorder, recurrent, moderate, alcohol use disorder, severe. PLAN: The patient does not require inpatient psychiatric hospitalization. After reviewing his symptoms, he may benefit from use of an antidepressant. Specifically, I would recommend Lexapro 10 mg daily. We discussed the potential benefits and side effects of Lexapro. He does not wish to have me prescribe that to him at this time. I shared my opinion that often times people over using substances will have a comorbid depressive and/or anxiety illness that they are trying to self medicate. It was suggested that perhaps the Lexapro could treat those symptoms and make this easier for him to abstain from alcohol use. He is encouraged to consider inpatient chemical dependency treatment. He was advised that with his insurance, he could call the access number and obtain placement at [facility]. He states he does not wish to attend that due to the menon virus pandemic. He is encouraged then to call [facility] for an intake appointment as they also can address his alcohol use disorder and major depression. He will give that consideration. At this time, there appears to be no imminent safety risk. He is appropriate for outpatient care. He is instructed to return to the hospital with any acute safety concerns. We will sign off this case. Please call with any other questions or concerns. MMODL / IJN: [id number] /
[2020-03-22] MEDS: LORazepam 2 MG/ML INJ IV PRN (20:29)
[2020-03-22] MEDS: FAMOTIDINE 20 MG TAB PO SCH (20:36)
[2020-03-22] MEDS: HEPARIN SODIUM,PORCINE 5,000 UNIT/ML 1 ML VIAL SQ SCH (20:36)
[2020-03-22] MEDS ORDERED: FAMOTIDINE 20 MG/2 ML VIAL IV SCH (21:00)
[2020-03-23] MEDS: LORazepam 2 MG/ML INJ IV PRN (01:11)
[2020-03-23] MEDS: DEXTROSE 5%-0.9% NACL 1,000 ML IV SCH ×2 (05:19→19:50)
[2020-03-23 09:19] LABS: Basophils % (A) 0 %; Eosinophils # (A) 0.4 k/uL (0-0.7); Eosinophils % (A) 4 %; HCT 45.3 % (39.0-53.0); HGB 14.8 gm/dL (13.0-17.5); Lymphocytes # (A) 1.2 k/uL (1.0-4.8); Lymphocytes % (A) 13 %; MCH 33.1 pg (25.0-35.0); MCHC 32.7 g/dL (31.0-37.0); MCV 101.4 fL (80.0-100.0); Mean Platelet Volume 7.6; Monocytes # (A) 0.6 k/uL (0-1.0); Monocytes % (A) 6 %; Neutrophils % (A) 75 %; Platelet Count 197 k/uL (150-450); RBC 4.47 m/uL (4.30-5.90); RDW 12.8 % (11.5-15.5); WBC 9.3 k/uL (3.8-10.6)
[2020-03-23 09:31] LABS: ALT 15 U/L (4-49); AST 43 U/L (17-59); African American GFR (CKD) >90 (>60 ml/min/1.73 sqM); Albumin 4.4 g/dL (3.5-5.0); Alkaline Phosphatase 105 U/L (38-126); Anion Gap 11 mmol/L; Blood Urea Nitrogen 3 mg/dL (9-20); Calcium 9.9 mg/dL (8.4-10.2); Carbon Dioxide 25 mmol/L (22-30); Chloride 100 mmol/L (98-107); Glucose 104 mg/dL (74-99); Non-African American GFR(CKD) >90 (>60 ml/min/1.73 sqM); Potassium 3.8 mmol/L (3.5-5.1); Sodium 136 mmol/L (137-145); Total Bilirubin 0.8 mg/dL (0.2-1.3)
[2020-03-23] MEDS: THIAMINE 100 MG TAB PO SCH ×2 (10:05→16:57)
[2020-03-23] MEDS: FAMOTIDINE 20 MG TAB PO SCH ×2 (10:05→19:54)
[2020-03-23] MEDS: HEPARIN SODIUM,PORCINE 5,000 UNIT/ML 1 ML VIAL SQ SCH ×2 (10:05→19:58)
--- NOTE | 2020-03-23 15:49 | P.PN ---
Subjective Progress Note Date: 03/23/20 Principal diagnosis: This is a pleasant 24 years old -French male with history of chronic alcohol, local withdrawal seizure, history of anxiety and depression. Patient says that she drinks alcohol 4 or more beers every day, yesterday he started feeling nauseated and his body blocked that he could not move it due to pain with some shakiness, but no overt seizure activity and patient was fully awake all the time. No chest pain or abdominal pain or vomiting or change in urine or bowel habits. No fever Patient feels depressed sometimes and some days today he feels disappointed but he denies suicidal or homicidal ideation Patient denies smoking or illicit drugs Vitals are stable. WBC 12.4 K, rest of CBC is stable. Creatinine normal 0.6, sodium 135, sugar control. UA is no suspicious of infection, seroma call is elevated to 108, coronavirus not detected. EKG showed normal sinus rhythm at 90 bpm On admission patient was started on CIWA protocol, IV fluids and same 03/23/2020 Patient is seen and evaluated and follow-up this morning and remains on a CIWA protocol and continues to have some mild nausea and shaking noted. Patient denies any suicidal ideation at this time. Patient was seen and evaluated by psychiatry recommending outpatient follow-up for possible alcohol rehab in the future. Objective - Vital Signs Vital signs: Vital Signs Temp 98.6 F 03/23/20 11:21 Pulse 77 03/23/20 11:21 Resp 16 03/23/20 11:21 BP 123/78 03/23/20 11:21 Pulse Ox 99 03/23/20 11:21 Intake & Output 03/22/20 03/23/20 03/23/20 18:59 06:59 18:59 Intake Total 600 925 800 Balance 600 925 800 Intake: IV 600 0.9 600 Intake, IV Titration 725 Amount Dextrose 5%-0.9% NaCl 1, 725 000 ml @ 75 mls/hr IV . [id number] [facility] Rx#:[id number] Oral 200 800 Other: Voiding Method Toilet Toilet # Voids 3 3 - Exam GENERAL: The patient is alert and oriented x3, not in any acute distress. Well developed, well nourished. HEENT: Pupils are round and equally reacting to light. EOMI. No scleral icterus. No conjunctival pallor. Normocephalic, atraumatic. No pharyngeal erythema. No thyromegaly. CARDIOVASCULAR: S1 and S2 present. No murmurs, rubs, or gallops. PULMONARY: Chest is clear to auscultation, no wheezing or crackles. ABDOMEN: Soft, nontender, nondistended, normoactive bowel sounds. No palpable organomegaly. MUSCULOSKELETAL: No joint swelling or deformity. EXTREMITIES: No cyanosis, clubbing, or pedal edema. NEUROLOGICAL: Gross neurological examination did not reveal any focal deficits. SKIN: No rashes. No petechiae - Labs CBC & Chem 7: 03/23/20 09:07 03/23/20 09:07 Labs: Abnormal Lab Results - Last 24 Hours (Table) 03/23/20 03/23/20 Range/Units 09:07 09:07 MCV 101.4 H (80.0-100.0) fL Sodium 136 L (137-145) mmol/L BUN 3 L (9-20) mg/dL Creatinine 0.58 L (0.66-1.25) mg/dL Glucose 104 H (74-99) mg/dL Assessment and Plan Assessment: Alcohol abuse with alcohol withdrawal, risk for DT Depressed with no suicidal ideation Mild leukocytosis, mostly reactive, no signs of infection and will not require any antibiotics at this time. Chronic alcohol problem with history of his alcohol withdrawal seizure, no evidence of seizure during this admission Plan: Will continue with CIWA protocol and monitor intake. Will monitor for alcohol withdrawals. Further recommendations to follow. Will likely discharge in the morning.
[2020-03-24] MEDS: DEXTROSE 5%-0.9% NACL 1,000 ML IV SCH (06:04)
[2020-03-24] MEDS: HEPARIN SODIUM,PORCINE 5,000 UNIT/ML 1 ML VIAL SQ SCH (09:09)
[2020-03-24] MEDS: FAMOTIDINE 20 MG TAB PO SCH (09:09)
[2020-03-24] MEDS: THIAMINE 100 MG TAB PO SCH (09:09)
[2020-03-24 12:22] VITALS: BP 112/77; PULSE 89; RESP 17; TEMP 99.1
--- NOTE | 2020-03-24 13:48 | P.DS ---
Providers Date of admission: 03/21/20 23:14 Expected date of discharge: 03/24/20 Attending physician: Yudith Child Consults: 03/22/20 09:04 Consult Physician Routine Consulting Provider: Yuniel Tello Consult Reason/Comments: Depression with alcoholism Do you want consulting provider notified?: Yes Primary care physician: Debra Cao [facility] Course: Final diagnosis Alcohol abuse with alcohol withdrawal, risk for DT Depressed with no suicidal ideation Mild leukocytosis, mostly reactive, no signs of infection Chronic alcohol problem with history of alcohol withdrawal seizure, no evidence of seizure during this admission Discharge disposition Patient is being discharged in a stable condition with guarded prognosis to home and will follow-up with primary care provider upon discharge. Patient will also need to follow-up with [facility] on an outpatient basis. Total time taken is 35 minutes. History of present illness This is a 24-year-old male who was recently admitted with acute alcohol intoxication and alcohol withdrawals and being closely monitored. Patient was seen and evaluated by psychiatry recommending an antidepressant and patient will follow-up with [facility] in the outpatient setting to discuss this. Patient also instructed to follow-up for possible alcohol rehab in the outpatient setting as well. Currently no reports of suicidal ideation or homicidal ideation. Patient was maintained on the CIWA protocol. Nausea improved. Patient is tolerating diet. No reports of chest pain, shortness of breath, or palpitations. Patient is afebrile. Patient states he would like to go home today. Thus with the patient about continuing to avoid all alcohol intake and follow-up with [facility] once discharged. Patient verbalized understanding. On exam vital signs are stable. Temp is 97.9F, pulse is 68, respirations are 16, blood pressure is 116/57, oxygen saturation is 99% on room air. Cardio S1, S2 are present. Respiratory system shows clear to auscultation. Abdomen is soft and nontender. Nervous system shows no focal deficits. Please refer to medication reconciliation sheet for a list of medications. Patient Condition at Discharge: Good Plan - Discharge Summary Discharge Rx Participant: No New Discharge Prescriptions: New Thiamine [Vitamin B-1] 100 mg PO DAILY 30 Days #30 tab Continue Vivitrol 380mg Inj 380 mg IM QMONTH Discharge Medication List Vivitrol 380mg Inj 380 mg IM QMONTH 03/22/20 [History] Thiamine [Vitamin B-1] 100 mg PO DAILY 30 Days #30 tab 03/24/20 [Rx] Follow up Appointment(s)/Referral(s): Fred Richardson MD [Primary Care Provider] - 04/01/20 9:10 am Patient Instructions/Handouts: Thiamine (By mouth), Alcohol Withdrawal (DC) Activity/Diet/Wound Care/Special Instructions: Activity Limited until follow-up Follow-up with primary care provider upon discharge Continue current diet Avoid alcohol use Follow-up with [facility] Discharge Disposition: HOME SELF-CARE
== END 2020-03-24 13:06 | disposition home or self-care (01) | DRG 897 ==
LOC: EC 20:20 → 5NMEDONC 23:14
PROVIDERS: ADMIT Hospitalist; ATTEND Hospitalist
DX: F10.239 Alcohol dependence with withdrawal, unspecified (principal); F33.1 Major depressive disorder, recurrent, moderate; F17.200 Nicotine dependence, unspecified, uncomplicated; F41.9 Anxiety disorder, unspecified; Z11.59 Encounter for screening for other viral diseases
CPT/HCPCS: 36415; 80053; 80320; 81003; 83735; 85025; 87635; 93005; 96361; 96372; 96374; 96375; 99285

== ENCOUNTER 2020-06-02 10:38 | Inpatient (IN) | payer OTHER ==
[2020-06-02] MEDS ORDERED: SODIUM CHLORIDE 0.9% 1,000 ML IV STA (11:28)
[2020-06-02] MEDS ORDERED: ONDANSETRON 4 MG/2 ML VIAL IVP STA (11:28)
[2020-06-02] MEDS ORDERED: LORazepam 2 MG/ML INJ IV STA (11:47)
[2020-06-02 11:57] LABS: Basophils # (A) 0.1 k/uL (0-0.2); Basophils % (A) 1 %; Eosinophils # (A) 0.3 k/uL (0-0.7); Eosinophils % (A) 2 %; HCT 44.3 % (39.0-53.0); HGB 13.9 gm/dL (13.0-17.5); Lymphocytes # (A) 0.6 k/uL (1.0-4.8); Lymphocytes % (A) 5 %; MCH 31.8 pg (25.0-35.0); MCHC 31.4 g/dL (31.0-37.0); MCV 101.4 fL (80.0-100.0); Macrocytosis Slight; Mean Platelet Volume 8.4; Monocytes # (A) 0.4 k/uL (0-1.0); Monocytes % (A) 3 %; Neutrophils # (A) 10.9 k/uL (1.3-7.7); Neutrophils % (A) 89 %; Platelet Count 144 k/uL (150-450); RBC 4.37 m/uL (4.30-5.90); RDW 13.5 % (11.5-15.5); WBC 12.3 k/uL (3.8-10.6)
[2020-06-02 12:17] LABS: ALT 111 U/L (4-49); AST 264 U/L (17-59); African American GFR (CKD) >90 (>60 ml/min/1.73 sqM); Albumin 4.8 g/dL (3.5-5.0); Alcohol 39 mg/dL; Alkaline Phosphatase 148 U/L (38-126); Anion Gap 18 mmol/L; Blood Urea Nitrogen 6 mg/dL (9-20); Calcium 9.7 mg/dL (8.4-10.2); Carbon Dioxide 20 mmol/L (22-30); Chloride 99 mmol/L (98-107); Glucose 52 mg/dL (74-99); Non-African American GFR(CKD) >90 (>60 ml/min/1.73 sqM); Potassium 3.8 mmol/L (3.5-5.1); Sodium 137 mmol/L (137-145); Total Bilirubin 0.9 mg/dL (0.2-1.3); Total Protein 8.1 g/dL (6.3-8.2)
--- NOTE | 2020-06-02 12:18 | ED ---
Alcohol HPI - General Chief Complaint: Alcohol Stated Complaint: Withdrawal Time Seen by Provider: 06/02/20 10:50 Source: patient Mode of arrival: wheelchair Limitations: no limitations - History of Present Illness Initial Comments: Patient is a 24-year-old male, history of alcohol abuse, presenting to the emergency department with complaints of withdrawal symptoms. Patient states she was sent in by Dr. Isa tao's office for withdrawal. He has been here previous occasions for similar complaint. He does admit to having diarrhea for the past day, some mild nausea. No vomiting, no recent fever or chills. He denies any chest pain, abdominal pain, shortness of breath. He states his last drink was apparently 16-17 hours ago. He states he normally only drinks about 4-5 beers a day. He denies any other drug use. He denies any other pertinent past medical history. He has no further complaints at this time. Upon arrival to the ER, his vital signs are stable. - Related Data Home Medications Medication Instructions Recorded Confirmed No Known Home Medications 06/02/20 06/02/20 Allergies Allergy/AdvReac Type Severity Reaction Status Date / Time No Known Allergies Allergy Verified 06/02/20 13:07 Review of Systems ROS Statement: Those systems with pertinent positive or pertinent negative responses have been documented in the HPI. ROS Other: All systems not noted in ROS Statement are negative. Past Medical History Past Medical History: No Reported History Additional Past Medical History / Comment(s): Previous seizures alcohol related, alcoholism History of Any Multi-Drug Resistant Organisms: None Reported Past Surgical History: No Surgical Hx Reported Past Anesthesia/Blood Transfusion Reactions: No Reported Reaction Past Psychological History: Anxiety, Depression Smoking Status: Former smoker Past Alcohol Use History: Daily, Heavy Past Drug Use History: None Reported - Past Family History Mother Family Medical History: No Reported History Father Family Medical History: No Reported History Additional Family Medical History / Comment(s): Father is healthy but used to drink heavily in the past General Exam - General Exam Comments Initial Comments: GENERAL: Patient appears mildly anxious, and in no acute distress. HEAD: Atraumatic, normocephalic. EYES: Pupils equal round and reactive to light, extraocular movements intact, sclera anicteric, conjunctiva are normal. ENT: TMs normal, nares patent, oropharynx clear without exudates. Moist mucous membranes. NECK: Normal range of motion, supple without lymphadenopathy or JVD. LUNGS: Breath sounds clear to auscultation bilaterally and equal. No wheezes rales or rhonchi. HEART: Regular rate and rhythm without murmurs, rubs or gallops. ABDOMEN: Soft, nontender, normoactive bowel sounds. No guarding, no rebound. No masses appreciated. : Deferred EXTREMITIES: Normal range of motion, no pitting or edema. No clubbing or cyanosis. NEUROLOGICAL: Cranial nerves II through XII grossly intact. Normal speech, normal gait. PSYCH: Normal mood, normal affect. SKIN: Warm, Dry, normal turgor, no rashes or lesions noted. Limitations: no limitations Course Vital Signs 06/02/20 06/02/20 10:42 14:04 Temperature 98.3 F Pulse Rate 94 89 Respiratory 18 18 Rate Blood Pressure 106/64 110/88 O2 Sat by Pulse 100 99 Oximetry Medical Decision Making - Medical Decision Making Patient is a 24-year-old male presenting from Dr. Maurer's office for alcohol withdrawal. States his last drink was 16-17 hours ago. Vitals are stable upon arrival. Patient is anxious on exam, nauseous, diarrhea, mild shaking. Lab work shows transaminitis, 4+ urine ketones, serum alcohol is 39, no other drugs detected in urine drug screen. Patient was started on CIWA protocol, given fluids, Zofran. Patient will be admitted for alcohol withdrawal. Patient was accepted by Dr. Maurer. Case discussed with Dr. Rothman. - Lab Data Result diagrams: 06/02/20 11:48 06/02/20 11:48 Lab Results 06/02/20 06/02/20 06/02/20 Range/Units 11:48 11:48 12:26 WBC 12.3 H (3.8-10.6) k/uL RBC 4.37 (4.30-5.90) m/uL Hgb 13.9 (13.0-17.5) gm/dL Hct 44.3 (39.0-53.0) % MCV 101.4 H (80.0-100.0) fL MCH 31.8 (25.0-35.0) pg MCHC 31.4 (31.0-37.0) g/dL RDW 13.5 (11.5-15.5) % Plt Count 144 L (150-450) k/uL Neutrophils % 89 % Lymphocytes % 5 % Monocytes % 3 % Eosinophils % 2 % Basophils % 1 % Neutrophils # 10.9 H (1.3-7.7) k/uL Lymphocytes # 0.6 L (1.0-4.8) k/uL Monocytes # 0.4 (0-1.0) k/uL Eosinophils # 0.3 (0-0.7) k/uL Basophils # 0.1 (0-0.2) k/uL Macrocytosis Slight Sodium 137 (137-145) mmol/L Potassium 3.8 (3.5-5.1) mmol/L Chloride 99 (98-107) mmol/L Carbon Dioxide 20 L (22-30) mmol/L Anion Gap 18 mmol/L BUN 6 L (9-20) mg/dL Creatinine 0.61 L (0.66-1.25) mg/dL Est GFR (CKD-EPI)AfAm >90 (>60 ml/min/1.73 sqM) Est GFR (CKD-EPI)NonAf >90 (>60 ml/min/1.73 sqM) Glucose 52 L (74-99) mg/dL Calcium 9.7 (8.4-10.2) mg/dL Total Bilirubin 0.9 (0.2-1.3) mg/dL AST 264 H (17-59) U/L ALT 111 H (4-49) U/L Alkaline Phosphatase 148 H (38-126) U/L Total Protein 8.1 (6.3-8.2) g/dL Albumin 4.8 (3.5-5.0) g/dL Urine Color Yellow Urine Appearance Clear (Clear) Urine pH 5.5 (5.0-8.0) Ur Specific [place] 1.020 (1.001-1.035) Urine Protein Trace H (Negative) Urine Glucose (UA) Negative (Negative) Urine Ketones 4+ H (Negative) Urine Blood Negative (Negative) Urine Nitrite Negative (Negative) Urine Bilirubin Negative (Negative) Urine Urobilinogen <2.0 (<2.0) mg/dL Ur Leukocyte Esterase Negative (Negative) Urine Opiates Screen Not Detected (NotDetected) Ur Oxycodone Screen Not Detected (NotDetected) Urine Methadone Screen Not Detected (NotDetected) Ur Propoxyphene Screen Not Detected (NotDetected) Ur Barbiturates Screen Not Detected (NotDetected) U Tricyclic Antidepress Not Detected (NotDetected) Ur Phencyclidine Scrn Not Detected (NotDetected) Ur Amphetamines Screen Not Detected (NotDetected) U Methamphetamines Scrn Not Detected (NotDetected) U Benzodiazepines Scrn Not Detected (NotDetected) Urine Cocaine Screen Not Detected (NotDetected) U Marijuana (THC) Screen Not Detected (NotDetected) Serum Alcohol 39 mg/dL Disposition Clinical Impression: Alcohol withdrawal Disposition: ADMITTED IP TO THIS [facility] Condition: Stable Is patient prescribed a controlled substance at d/c from ED?: No Decision Date: 06/02/20 Decision Time: 13:10
[2020-06-02 12:36] LABS: Appearance,Urine Clear (Clear); Bilirubin,Urine Negative (Negative); Blood,Urine Negative (Negative); Color,Urine Yellow; Glucose,Urine (UA) Negative (Negative); Ketones,Urine 4+ (Negative); Leukocyte Esterase,Urine Negative (Negative); Nitrite,Urine Negative (Negative); PH, Urine 5.5 (5.0-8.0); Protein,Urine Trace (Negative); Urobilinogen,Urine <2.0 mg/dL (<2.0)
[2020-06-02 12:55] LABS: Amphetamine Screen,Urine Not Detected (NotDetected); Barbiturate Screen,Urine Not Detected (NotDetected); Benzodiazepines Screen,Urine Not Detected (NotDetected); Cocaine Screen,Urine Not Detected (NotDetected); Methadone Screen, Urine Not Detected (NotDetected); Opiate Screen,Urine Not Detected (NotDetected); Oxycodone Screen, Urine Not Detected (NotDetected); Phencyclidine Screen,Urine Not Detected (NotDetected); Tricyclic Antidepressant,Urine Not Detected (NotDetected); Urn Cannabinoid Scrn Not Detected (NotDetected)
[2020-06-02] MEDS ORDERED: ACETAMINOPHEN TAB 325 MG TAB PO PRN (13:06)
[2020-06-02] MEDS ORDERED: ONDANSETRON 4 MG/2 ML VIAL IVP PRN (13:06)
[2020-06-02] MEDS ORDERED: NALOXONE 0.4 MG/ML 1 ML VIAL IV PRN (13:06)
[2020-06-02] MEDS ORDERED: KETOROLAC 30 MG/ML 1 ML VIAL IVP PRN (13:06)
[2020-06-02] MEDS ORDERED: LORazepam 2 MG/ML INJ IV PRN ×3 (13:08)
[2020-06-02] MEDS ORDERED: THIAMINE 100 MG/ML 2 ML VIAL IM STA (13:08)
[2020-06-02] MEDS: SODIUM CHLORIDE 0.9% 1,000 ML IV SCH (13:59)
[2020-06-02] MEDS: THIAMINE 100 MG TAB PO SCH (16:56)
--- NOTE | 2020-06-02 17:42 | HP ---
HISTORY AND PHYSICAL CHIEF COMPLAINT: Delirium tremens. HISTORY OF PRESENT ILLNESS: This is another admission for this 24-year-old -[place] chronic alcoholic. He was brought to the office by his girlfriend in DTs. He was scheduled to come in for his physical, but he was withdrawing and was sent to the emergency room. REVIEW OF SYSTEMS: He was nauseated, but not vomiting. He was tremulous. He was complaining of some mild upper abdominal pain. Past medical history, family history, and personal and social histories reveal that he is NOT ALLERGIC TO ANYTHING and he is not taking any medications. He does smoke and he has been a heavy alcohol consumer for many years. PHYSICAL EXAMINATION: Blood pressure is 102/60 with a pulse of 96, respirations of 18 and he is afebrile. In general he appeared to be slender, dehydrated and in early DTs. Skin was dry. Head, ears, eyes, nose, mouth and throat were normal. Carotids were normal. Chest was clear. Cardiac exam demonstrated tachycardia and the abdomen was scaphoid. Extremities were normal and neurologically he was tremulous. He is admitted to the hospital with the diagnoses: 1. Delirium tremens. 2. Chronic alcoholism. PLAN: 1. Bed rest. 2. IV fluids. 3. [facility] protocol. MMODL / IJN: [id number] /
[2020-06-03] MEDS: SODIUM CHLORIDE 0.9% 1,000 ML IV SCH ×3 (04:41→22:41)
[2020-06-03 05:20] VITALS: TEMP 98.5
[2020-06-03] MEDS: THIAMINE 100 MG TAB PO SCH ×2 (08:31→17:36)
--- NOTE | 2020-06-03 19:03 | PN ---
PROGRESS NOTE DATE OF SERVICE: 06/03/2020 CHIEF COMPLAINT: Alcoholism and DTs. HISTORY OF PRESENT ILLNESS: This gentleman is doing fairly well. He is not in DTs. He does not have an appetite, however. PHYSICAL EXAMINATION: He has no nystagmus. His chest is clear. The cardiac exam is normal. Abdomen is soft, nontender. He has no tremulousness. IMPRESSION: 1. Acute alcohol intoxication. 2. Impending delirium tremens. 3. Chronic alcoholism. PLAN: Continue with current program with [facility] protocol. ROSELYN / TATIANA: [id number] /
[2020-06-04] MEDS: THIAMINE 100 MG TAB PO SCH ×2 (08:19→17:32)
[2020-06-04] MEDS: SODIUM CHLORIDE 0.9% 1,000 ML IV SCH (15:17)
[2020-06-05] MEDS: THIAMINE 100 MG TAB PO SCH (07:24)
[2020-06-05] MEDS: SODIUM CHLORIDE 0.9% 1,000 ML IV SCH (07:24)
[2020-06-05 08:41] VITALS: BP 124/84; PULSE 85; RESP 16
[2020-06-05 09:24] VITALS: BMI 29.5
--- NOTE | 2020-06-05 17:04 | PN ---
PROGRESS NOTE DATE OF SERVICE: 06/04/2020 CHIEF COMPLAINT: Acute alcohol intoxication and DTs. HISTORY OF PRESENT ILLNESS: This gentleman is doing better. His appetite is improving and he is not having any problems, diplopia, tremors, shortness of breath, abdominal pain, etc. PHYSICAL EXAMINATION: Chest is clear. Cardiac exam is normal. Abdomen is soft, nontender. IMPRESSION: 1. Acute alcohol intoxication and DTs. 2. Chronic alcoholism. PLAN: Progress activity and diet and probably home tomorrow. MMODL / IJN: [id number] /
--- NOTE | 2020-06-05 18:46 | DS ---
DISCHARGE SUMMARY CHIEF COMPLAINT: Delirium tremens. HISTORY OF PRESENT ILLNESS AND PHYSICAL EXAMINATION: Details of this man's history and physical can be found in the initial workup. LABORATORY STUDIES: While he was in the hospital he had laboratory studies, details of which can be found in the laboratory section of his chart. COURSE IN THE HOSPITAL: After admission he was placed on bedrest, started on CIWA protocol. He did fairly well. He remained tremulous and in mild DTs for about 48 hours and then began to improve. He is doing well on June 05 and it is felt that he can go home. He will go home on his usual activity, diet, and he will follow up in the office in a day or two and then he will be started on Campral 330 mg three times a day. He will also be instructed to attend AA. FINAL DIAGNOSES: 1. Acute alcohol intoxication. 2. Delirium tremens. 3. Chronic alcoholism. OPERATIONS: None. CONSULTATIONS: None. He is improved. ROSELYN / TATIANA: [id number] /
== END 2020-06-05 11:39 | disposition home or self-care (01) | DRG 897 ==
LOC: EC 10:38 → 5NMEDONC 13:02
PROVIDERS: ADMIT Family Medicine; ATTEND Family Medicine
DX: F10.231 Alcohol dependence with withdrawal delirium (principal); F32.9 Major depressive disorder, single episode, unspecified; F41.9 Anxiety disorder, unspecified; Z87.891 Personal history of nicotine dependence; Z11.59 Encounter for screening for other viral diseases
CPT/HCPCS: 36415; 80053; 80306; 80320; 81003; 85025; 96361; 96372; 96374; 96375; 99284

== ENCOUNTER → 2020-07-22 | Outpatient (CLI) | payer OTHER ==
--- NOTE | 2020-07-23 02:08 | MR ---
EXAMINATION TYPE: MR hand RT wo/w con DATE OF EXAM: 07/22/2020 COMPARISON: None HISTORY: Mass on lateral aspect of rt hand x 8 years CONTRAST: Standard multiplanar, multisequence MRI departmental protocol utilizing 6.5 mL intravenous Gadavist g adolinium contrast. There is a 3.2 x 3 x 3.3 cm mixed signal mass that is on the medial aspect of the fifth metacarpal. T he mass extends to the fifth metacarpal head and partly encasing the distal fifth metacarpal. Mass munson s increased signal on T1 images compared to muscle and does not show any significant enhancement ketty erwin. The hand x-ray of 01/15/2020 is reviewed and there is soft tissue density appearing mass in this area probably not changed in size. The mass is extending into the fifth metacarpal head through the lateral cortex. The other metacarpal s are intact. IMPRESSION: Well marginated mass involving the fifth metacarpal head extending into the soft tissues without sign ificant enhancement. No evidence of any fluid component. According to the history the patient has had this mass for 8 years. This certainly suggests a benign etiology. This could be a giant cell tumor. The possibility of more aggressive tumor such as a sarcoma is not excluded but thought unlikely in vi ew of the long history.
== END | disposition home or self-care (01) ==
LOC: RADMRIMAIN 19:57
PROVIDERS: ATTEND Family Medicine
DX: R22.31 Localized swelling, mass and lump, right upper limb (principal); M89.9 Disorder of bone, unspecified
CPT/HCPCS: 73220; A9585

== ENCOUNTER 2020-09-25 08:59 | Observation (INO) | payer OTHER ==
[2020-09-25 09:12] LABS: Glucose,Whole Blood 48 mg/dL (75-99)
[2020-09-25] MEDS ORDERED: DEXTROSE 50% SYRINGE 50 ML IVP STA (09:12)
[2020-09-25] MEDS ORDERED: SODIUM CHLORIDE 0.9% 1,000 ML IV STA (09:25)
[2020-09-25] MEDS ORDERED: FAMOTIDINE 20 MG/2 ML VIAL IV STA (09:25)
[2020-09-25] MEDS ORDERED: ONDANSETRON 4 MG/2 ML VIAL IVP STA (09:25)
[2020-09-25 09:43] LABS: Basophils # (A) 0.1 k/uL (0-0.2); Basophils % (A) 2 %; Eosinophils # (A) 0.1 k/uL (0-0.7); Eosinophils % (A) 1 %; HCT 46.3 % (39.0-53.0); HGB 14.7 gm/dL (13.0-17.5); Lymphocytes # (A) 1.1 k/uL (1.0-4.8); Lymphocytes % (A) 16 %; MCH 32.3 pg (25.0-35.0); MCHC 31.7 g/dL (31.0-37.0); MCV 101.6 fL (80.0-100.0); Macrocytosis Slight; Mean Platelet Volume 7.4; Monocytes # (A) 0.1 k/uL (0-1.0); Monocytes % (A) 2 %; Neutrophils # (A) 5.2 k/uL (1.3-7.7); Neutrophils % (A) 78 %; Platelet Count 174 k/uL (150-450); RBC 4.56 m/uL (4.30-5.90); RDW 13.4 % (11.5-15.5); WBC 6.7 k/uL (3.8-10.6)
[2020-09-25 09:47] LABS: Glucose,Whole Blood 157 mg/dL (75-99)
--- NOTE | 2020-09-25 09:48 | ED ---
General Adult HPI - General Chief complaint: Recheck/Abnormal Lab/Rx Stated complaint: Alcohol withdraw Time Seen by Provider: 09/25/20 09:04 Source: patient, EMS, RN notes reviewed Mode of arrival: EMS Limitations: no limitations - History of Present Illness Initial comments: Patient is a pleasant 24-year-old male presenting to the emergency Department with complaints of concern for alcohol withdrawal. Patient states he drinks around 4of 25 ounce beers daily. Last alcohol intake was last night. Patient states he feels generally weak and nauseated this morning. Patient states he is trying to get off alcohol. - Related Data Home Medications Medication Instructions Recorded Confirmed Divalproex Sodium [Depakote] 500 mg PO BID 09/25/20 09/25/20 Allergies Allergy/AdvReac Type Severity Reaction Status Date / Time No Known Allergies Allergy Verified 09/25/20 11:10 Review of Systems ROS Statement: Those systems with pertinent positive or pertinent negative responses have been documented in the HPI. ROS Other: All systems not noted in ROS Statement are negative. Constitutional: Denies: fever Eyes: Denies: eye pain ENT: Denies: ear pain Respiratory: Denies: cough Cardiovascular: Denies: chest pain Endocrine: Reports: fatigue Gastrointestinal: Reports: abdominal pain, nausea. Denies: vomiting Genitourinary: Denies: dysuria Musculoskeletal: Denies: back pain Past Medical History Past Medical History: No Reported History Additional Past Medical History / Comment(s): Previous seizures alcohol related, alcoholism History of Any Multi-Drug Resistant Organisms: None Reported Past Surgical History: No Surgical Hx Reported Additional Past Surgical History / Comment(s): Pt states he has never had surgery. Past Anesthesia/Blood Transfusion Reactions: No Reported Reaction Additional Past Anesthesia/Blood Transfusion Reaction / Comment(s): Pt has never had surgery Past Psychological History: Anxiety, Depression Smoking Status: Current some day smoker Past Alcohol Use History: Daily, Heavy Past Drug Use History: None Reported - Past Family History Mother Family Medical History: No Reported History Father Family Medical History: No Reported History Additional Family Medical History / Comment(s): Father is healthy but used to drink heavily in the past General Exam Limitations: no limitations General appearance: alert, in no apparent distress Head exam: Present: normocephalic Eye exam: Present: normal appearance Neck exam: Present: normal inspection Respiratory exam: Present: normal lung sounds bilaterally Cardiovascular Exam: Present: regular rate, normal rhythm Expanded Peripheral pulses: 2+: Dorsalis Pedis (R), Dorsalis Pedis (L) GI/Abdominal exam: Present: soft, tenderness (Mild tenderness epigastric). Absent: distended Extremities exam: Present: normal inspection Neurological exam: Present: alert Psychiatric exam: Present: normal affect, normal mood Skin exam: Present: normal color Course Vital Signs 09/25/20 09/25/20 09:00 10:21 Temperature 97.5 F L Pulse Rate 98 90 Respiratory 18 16 Rate Blood Pressure 111/65 102/57 O2 Sat by Pulse 100 100 Oximetry Medical Decision Making - Medical Decision Making Patient reevaluated and updated. Dr. Maurer has been paged for admission Case was discussed with Dr. Maurer, who will admit. - Lab Data Result diagrams: 09/25/20 09:33 09/25/20 09:33 Lab Results 09/25/20 09/25/20 09/25/20 Range/Units 09:04 09:33 09:33 WBC 6.7 (3.8-10.6) k/uL RBC 4.56 (4.30-5.90) m/uL Hgb 14.7 (13.0-17.5) gm/dL Hct 46.3 (39.0-53.0) % MCV 101.6 H (80.0-100.0) fL MCH 32.3 (25.0-35.0) pg MCHC 31.7 (31.0-37.0) g/dL RDW 13.4 (11.5-15.5) % Plt Count 174 (150-450) k/uL Neutrophils % 78 % Lymphocytes % 16 % Monocytes % 2 % Eosinophils % 1 % Basophils % 2 % Neutrophils # 5.2 (1.3-7.7) k/uL Lymphocytes # 1.1 (1.0-4.8) k/uL Monocytes # 0.1 (0-1.0) k/uL Eosinophils # 0.1 (0-0.7) k/uL Basophils # 0.1 (0-0.2) k/uL Macrocytosis Slight PT 9.4 (9.0-12.0) sec INR 0.9 (<1.2) APTT 24.4 (22.0-30.0) sec Sodium (137-145) mmol/L Potassium (3.5-5.1) mmol/L Chloride (98-107) mmol/L Carbon Dioxide (22-30) mmol/L Anion Gap mmol/L BUN (9-20) mg/dL Creatinine (0.66-1.25) mg/dL Est GFR (CKD-EPI)AfAm (>60 ml/min/1.73 sqM) Est GFR (CKD-EPI)NonAf (>60 ml/min/1.73 sqM) Glucose (74-99) mg/dL POC Glucose (mg/dL) 48 L (75-99) mg/dL POC Glu News Librarian ID Wilber Castaneda Calcium (8.4-10.2) mg/dL Total Bilirubin (0.2-1.3) mg/dL AST (17-59) U/L ALT (4-49) U/L Alkaline Phosphatase (38-126) U/L Total Protein (6.3-8.2) g/dL Albumin (3.5-5.0) g/dL Amylase (30-110) U/L Lipase (23-300) U/L Serum Alcohol mg/dL 09/25/20 09/25/20 Range/Units 09:33 09:45 WBC (3.8-10.6) k/uL RBC (4.30-5.90) m/uL Hgb (13.0-17.5) gm/dL Hct (39.0-53.0) % MCV (80.0-100.0) fL MCH (25.0-35.0) pg MCHC (31.0-37.0) g/dL RDW (11.5-15.5) % Plt Count (150-450) k/uL Neutrophils % % Lymphocytes % % Monocytes % % Eosinophils % % Basophils % % Neutrophils # (1.3-7.7) k/uL Lymphocytes # (1.0-4.8) k/uL Monocytes # (0-1.0) k/uL Eosinophils # (0-0.7) k/uL Basophils # (0-0.2) k/uL Macrocytosis PT (9.0-12.0) sec INR (<1.2) APTT (22.0-30.0) sec Sodium 135 L (137-145) mmol/L Potassium 4.3 (3.5-5.1) mmol/L Chloride 96 L (98-107) mmol/L Carbon Dioxide 17 L (22-30) mmol/L Anion Gap 22 mmol/L BUN 11 (9-20) mg/dL Creatinine 0.91 (0.66-1.25) mg/dL Est GFR (CKD-EPI)AfAm >90 (>60 ml/min/1.73 sqM) Est GFR (CKD-EPI)NonAf >90 (>60 ml/min/1.73 sqM) Glucose 164 H (74-99) mg/dL POC Glucose (mg/dL) 157 H (75-99) mg/dL POC Glu News Librarian ID Sarai Pandya Calcium 9.0 (8.4-10.2) mg/dL Total Bilirubin 0.6 (0.2-1.3) mg/dL AST 142 H (17-59) U/L ALT 64 H (4-49) U/L Alkaline Phosphatase 95 (38-126) U/L Total Protein 8.1 (6.3-8.2) g/dL Albumin 4.8 (3.5-5.0) g/dL Amylase 104 (30-110) U/L Lipase 39 (23-300) U/L Serum Alcohol 267 H* mg/dL Disposition Clinical Impression: Alcohol intoxication, Hypoglycemia Disposition: ADMITTED IP TO THIS HOSP Is patient prescribed a controlled substance at d/c from ED?: No Referrals: Rosales Maurer MD [Primary Care Provider] - 1-2 days Decision Time: 11:00
[2020-09-25 09:52] LABS: INR 0.9 (<1.2); Partial Thromboplastin Time 24.4 sec (22.0-30.0); Prothrombin Time 9.4 sec (9.0-12.0)
[2020-09-25 09:53] LABS: ALT 64 U/L (4-49); AST 142 U/L (17-59); African American GFR (CKD) >90 (>60 ml/min/1.73 sqM); Albumin 4.8 g/dL (3.5-5.0); Alkaline Phosphatase 95 U/L (38-126); Amylase 104 U/L (30-110); Anion Gap 22 mmol/L; Blood Urea Nitrogen 11 mg/dL (9-20); Carbon Dioxide 17 mmol/L (22-30); Chloride 96 mmol/L (98-107); Glucose 164 mg/dL (74-99); Lipase 39 U/L (23-300); Non-African American GFR(CKD) >90 (>60 ml/min/1.73 sqM); Potassium 4.3 mmol/L (3.5-5.1); Sodium 135 mmol/L (137-145); Total Bilirubin 0.6 mg/dL (0.2-1.3); Total Protein 8.1 g/dL (6.3-8.2)
[2020-09-25 09:54] LABS: Alcohol 267 mg/dL
[2020-09-25] MEDS ORDERED: NALOXONE 0.4 MG/ML 1 ML VIAL IV PRN (11:01)
[2020-09-25] MEDS ORDERED: LORazepam 2 MG/ML INJ IV PRN ×4 (11:02)
[2020-09-25] MEDS: THIAMINE 100 MG TAB PO SCH ×2 (12:11→17:31)
[2020-09-25] MEDS: SODIUM CHLORIDE 0.9% 1,000 ML IV SCH (12:34)
[2020-09-25] MEDS: ONDANSETRON 4 MG/2 ML VIAL IVP PRN (14:31)
--- NOTE | 2020-09-25 15:40 | XR ---
EXAMINATION TYPE: XR KUB DATE OF EXAM: 09/25/2020 3:30 PM CLINICAL HISTORY: Abdominal pain TECHNIQUE: Upright images of the abdomen and pelvis were obtained COMPARISON: None. FINDINGS: Scattered gas is seen in non-distended small bowel loops. Gas and fecal material is seen in non-distended colon. There is no visceromegaly, pneumoperitoneum, or abnormal calcification apprecia alisia. The lung bases are clear. The osseous structures are intact. IMPRESSION: Nonspecific bowel gas pattern.
[2020-09-25 17:20] LABS: Glucose,Whole Blood 62 mg/dL (75-99)
[2020-09-25 17:44] LABS: Glucose,Whole Blood 68 mg/dL (75-99)
[2020-09-25 18:12] LABS: Glucose,Whole Blood 91 mg/dL (75-99)
[2020-09-25] MEDS: FAMOTIDINE 20 MG TAB PO SCH (20:17)
[2020-09-25] MEDS: DIVALPROEX 500 MG TABLET.DR PO SCH (20:17)
[2020-09-25 20:23] LABS: Glucose,Whole Blood 156 mg/dL (75-99)
[2020-09-26 03:11] LABS: Glucose,Whole Blood 87 mg/dL (75-99)
[2020-09-26] MEDS: SODIUM CHLORIDE 0.9% 1,000 ML IV SCH ×3 (05:44→14:12)
[2020-09-26 07:10] LABS: Glucose,Whole Blood 96 mg/dL (75-99)
[2020-09-26] MEDS: DIVALPROEX 500 MG TABLET.DR PO SCH ×2 (10:18→20:06)
[2020-09-26] MEDS: FAMOTIDINE 20 MG TAB PO SCH ×2 (10:19→20:06)
[2020-09-26] MEDS: THIAMINE 100 MG TAB PO SCH ×2 (10:19→20:06)
[2020-09-26] MEDS: ONDANSETRON 4 MG/2 ML VIAL IVP PRN ×2 (10:32→17:54)
[2020-09-26 10:37] VITALS: BMI 27.4
[2020-09-26 11:15] LABS: Glucose,Whole Blood 67 mg/dL (75-99)
[2020-09-26 11:34] LABS: Glucose,Whole Blood 69 mg/dL (75-99)
[2020-09-26 11:49] LABS: Glucose,Whole Blood 98 mg/dL (75-99)
--- NOTE | 2020-09-26 15:46 | HP ---
HISTORY AND PHYSICAL CHIEF COMPLAINT: Acute alcohol intoxication. HISTORY OF PRESENT ILLNESS: This is another admission for this 24-year-old -[place] male who is a steady and serious chronic alcoholic. He was in the emergency room with alcohol of 267. When he was last seen in the office, he was trying desperately to control his drinking. REVIEW OF SYSTEMS: Difficult because he is intoxicated. He denies blackouts, seizures, headache, neurologic problems, diplopia, chest pain, shortness of breath, abdominal pain, hematemesis, melena, hematochezia, etc. Past medical history, family history and personal and social histories are all otherwise unremarkable or noncontributory. He was in the office in July trying to control his drinking. ALLERGIES: He is not allergic to any medication. MEDICATIONS: He is not taking any medications. SOCIAL HISTORY: He does smoke. PHYSICAL EXAMINATION: Blood pressure 122/80 with a pulse of 94 and regular, respirations of 35, and he is afebrile. In general, he appeared to be slender, dehydrated and slightly lethargic. Skin was dry. Head, ears, eyes, nose, mouth, and throat were normal. Neck veins were not distended. Chest is clear. Cardiac exam demonstrates sinus tachycardia. There are no murmurs. Abdomen is flat, soft, nontender. Bowel sounds present. Extremities are normal. Neurologically he is intact. He is admitted to the hospital with the diagnoses of: 1. Acute alcohol intoxication. 2. Chronic alcoholism. PLAN: 1. Bed rest. 2. IV fluids. 3. CIWA protocol. MMODL / IJN: [id number] /
--- NOTE | 2020-09-26 16:10 | PN ---
PROGRESS NOTE DATE OF SERVICE: 09/26/2020 CHIEF COMPLAINT: Acute alcohol intoxication. HISTORY OF PRESENT ILLNESS: This gentleman is doing fairly well but he is complaining of nausea and some upper abdominal discomfort. She had no fever, chills, melena, hematochezia, hematemesis, etc. PHYSICAL EXAMINATION: Chest is clear. Cardiac exam demonstrates sinus tachycardia. The abdomen is flat, soft, nontender. Bowel sounds are present. IMPRESSION: 1. Acute alcohol intoxication. 2. Chronic alcoholism. PLAN: Continue with IV fluids and watch for DTs. MMODL / IJN: [id number] /
[2020-09-26 17:27] LABS: Glucose,Whole Blood 89 mg/dL (75-99)
[2020-09-26 21:32] LABS: Glucose,Whole Blood 87 mg/dL (75-99)
[2020-09-27] MEDS: SODIUM CHLORIDE 0.9% 1,000 ML IV SCH ×3 (01:18→23:50)
[2020-09-27 02:03] LABS: Glucose,Whole Blood 83 mg/dL (75-99)
[2020-09-27 07:13] LABS: Glucose,Whole Blood 87 mg/dL (75-99)
[2020-09-27] MEDS: THIAMINE 100 MG TAB PO SCH ×2 (07:52→16:54)
[2020-09-27] MEDS: FAMOTIDINE 20 MG TAB PO SCH ×2 (07:52→22:10)
[2020-09-27] MEDS: DIVALPROEX 500 MG TABLET.DR PO SCH ×2 (07:52→22:10)
[2020-09-27 11:05] LABS: Glucose,Whole Blood 91 mg/dL (75-99)
--- NOTE | 2020-09-27 16:37 | PN ---
PROGRESS NOTE DATE OF SERVICE: 09/27/2020 CHIEF COMPLAINT: Acute alcohol intoxication and chronic alcoholism with possible DTs. HISTORY OF PRESENT ILLNESS: This gentleman is doing better. Vital signs are normal. He is awake and alert. He has not had any DTs so far. He has had slight trembling, but no diplopia. He has had no confusion and he has had no seizures. PHYSICAL EXAM: Head ears, eyes, nose, and throat are normal. Chest is clear. Cardiac exam demonstrates sinus rhythm. Abdomen is flat, soft, nontender. He has a slight tremor in the upper extremities. IMPRESSION: 1. Acute alcohol intoxication. 2. Chronic alcoholism. 3. Impending DTs. PLAN: Continue monitoring and probably discharge tomorrow. MMODL / IJN: [id number] /
[2020-09-28 06:23] LABS: Glucose,Whole Blood 84 mg/dL (75-99)
[2020-09-28 07:50] VITALS: BP 105/59; PULSE 81; RESP 14; TEMP 98.3
[2020-09-28] MEDS: DIVALPROEX 500 MG TABLET.DR PO SCH (07:53)
[2020-09-28] MEDS: THIAMINE 100 MG TAB PO SCH (07:54)
[2020-09-28] MEDS: FAMOTIDINE 20 MG TAB PO SCH (07:54)
[2020-09-28] MEDS: SODIUM CHLORIDE 0.9% 1,000 ML IV SCH (07:55)
[2020-09-28 11:30] LABS: Glucose,Whole Blood 133 mg/dL (75-99)
--- NOTE | 2020-09-28 16:56 | DS ---
DISCHARGE SUMMARY CHIEF COMPLAINT: Acute alcohol intoxication. HISTORY OF PRESENT ILLNESS AND PHYSICAL EXAMINATION: Details of this man's history and physical can be found in the initial workup. LABORATORY STUDIES: While he was in a hospital he had laboratory studies, details of which can be found in the laboratory section of his chart. COURSE IN THE HOSPITAL: After admission, he was placed on bedrest, started on intravenous fluids and placed on CIWA protocol and monitored for the development of DTs, which never occurred, but he is doing well. It was felt that he could go home on 09/28 and he will be followed up in the office. FINAL DIAGNOSES: 1. Acute alcohol intoxication. 2. Chronic alcoholism. 3. Impending DTs. OPERATIONS: None. CONSULTATION: None. He is improved. MMTAMRAL / BIBIN: [id number] /
== END 2020-09-28 14:40 | disposition home or self-care (01) ==
LOC: EC 08:59 → 6NMEDSUR 11:03 → 1SOBS 09-27 15:12
PROVIDERS: ADMIT Family Medicine; ATTEND Family Medicine
DX: F10.221 Alcohol dependence with intoxication delirium (principal); E16.2 Hypoglycemia, unspecified; F41.9 Anxiety disorder, unspecified; F32.9 Major depressive disorder, single episode, unspecified; F17.200 Nicotine dependence, unspecified, uncomplicated; Z79.899 Other long term (current) drug therapy; Z86.69 Personal history of other diseases of the nervous system and sense organs; Y90.8 Blood alcohol level of 240 mg/100 ml or more; Z81.1 Family history of alcohol abuse and dependence
CPT/HCPCS: 96376 ×2; 96361 ×4; 96375 ×2; 96374; 99285; 36415; 80053; 82150; 83690; 85025; 85610; 85730; 74018; G0378 ×5; G0480; J2060; J2405 ×2; 80320

== ENCOUNTER 2020-11-09 06:53 | Emergency (ER) | payer OTHER ==
--- NOTE | 2020-11-09 07:06 | ED ---
Psych HPI - General Stated Complaint: Altered Mental Status Time Seen by Provider: 11/09/20 06:55 Source: patient, RN notes reviewed Mode of arrival: ambulatory Limitations: no limitations - History of Present Illness Initial Comments: This a 24-year-old male who presents emergency Department via EMS for psychiatric evaluation. Patient's been having hallucinations. Patient ma laligned to [employer] much information. Patient will also be suicidal or homicidal he states is having difficulty with his thought process. Patient is. Depakote but has not been taking them. Patient did have police come to his house and with EMS. Patient has no physical complaints. - Related Data Home Medications Medication Instructions Recorded Confirmed Divalproex Sodium [Depakote] 500 mg PO BID 09/25/20 11/09/20 Clindamycin Topical Soln 1 applic TOPICAL BID 11/09/20 11/09/20 [Cleocin-T Topical Soln] Minocycline HCl [Minocin] 100 mg PO DAILY 11/09/20 11/09/20 Previous Rx's Medication Instructions Recorded Thiamine [Vitamin B-1] 100 mg PO BID-W/MEALS #100 tab 09/28/20 Allergies Allergy/AdvReac Type Severity Reaction Status Date / Time No Known Allergies Allergy Verified 11/09/20 07:37 Review of Systems ROS Statement: Those systems with pertinent positive or pertinent negative responses have been documented in the HPI. ROS Other: All systems not noted in ROS Statement are negative. Past Medical History Past Medical History: No Reported History Additional Past Medical History / Comment(s): Previous seizures alcohol related, alcoholism History of Any Multi-Drug Resistant Organisms: None Reported Past Surgical History: No Surgical Hx Reported Additional Past Surgical History / Comment(s): Pt states he has never had surgery. Past Anesthesia/Blood Transfusion Reactions: No Reported Reaction Additional Past Anesthesia/Blood Transfusion Reaction / Comment(s): Pt has never had surgery Smoking Status: Current some day smoker - Past Family History Mother Family Medical History: No Reported History Additional Family Medical History / Comment(s): Mother is healthy Father Family Medical History: No Reported History Additional Family Medical History / Comment(s): Father is is an alcoholic General Exam General appearance: alert, in no apparent distress Head exam: Present: atraumatic, normocephalic, normal inspection Eye exam: Present: normal appearance, PERRL, EOMI. Absent: scleral icterus, conjunctival injection, periorbital swelling ENT exam: Present: normal exam, normal oropharynx, mucous membranes moist, TM's normal bilaterally Neck exam: Present: normal inspection, full ROM. Absent: tenderness, meningismus, lymphadenopathy Respiratory exam: Present: normal lung sounds bilaterally. Absent: respiratory distress, wheezes, rales, rhonchi, stridor Cardiovascular Exam: Present: regular rate, normal rhythm, normal heart sounds. Absent: systolic murmur, diastolic murmur, rubs, gallop, clicks Neurological exam: Present: alert, oriented X3 Psychiatric exam: Present: anxious, manic Skin exam: Present: warm, dry, intact, normal color. Absent: rash Course Vital Signs 11/09/20 06:54 Temperature 97.7 F Pulse Rate 92 Respiratory 18 Rate Blood Pressure 149/92 O2 Sat by Pulse 100 Oximetry Medical Decision Making - Medical Decision Making 24-year-old male presented for psychiatric evaluation. Patient was evaluated by CM and EPS case discussed with psychiatrist who state the patient is safe for discharge. Patient does have a history of seizure disorder, alcohol abuse that he has not been drinking in over a week. Patient has no clear evidence withdrawal at this time. Patient will be discharged in stable condition return parameters discussed. - Lab Data Lab Results 11/09/20 Range/Units 07:15 Urine Opiates Screen Not Detected (NotDetected) Ur Oxycodone Screen Not Detected (NotDetected) Urine Methadone Screen Not Detected (NotDetected) Ur Propoxyphene Screen Not Detected (NotDetected) Ur Barbiturates Screen Not Detected (NotDetected) U Tricyclic Antidepress Not Detected (NotDetected) Ur Phencyclidine Scrn Not Detected (NotDetected) Ur Amphetamines Screen Not Detected (NotDetected) U Methamphetamines Scrn Not Detected (NotDetected) U Benzodiazepines Scrn Detected H (NotDetected) Urine Cocaine Screen Not Detected (NotDetected) U Marijuana (THC) Screen Not Detected (NotDetected) Disposition Clinical Impression: Acute anxiety Disposition: HOME SELF-CARE Condition: Stable Instructions (If sedation given, give patient instructions): Anxiety (ED) Additional Instructions: Please return to the Emergency Department if symptoms worsen or any other concerns. Is patient prescribed a controlled substance at d/c from ED?: No Referrals: Rosales Maurer MD [Primary Care Provider] - 1-2 days Time of Disposition: 10:39
[2020-11-09 07:16] VITALS: RESP 18
[2020-11-09 07:39] LABS: Amphetamine Screen,Urine Not Detected (NotDetected); Barbiturate Screen,Urine Not Detected (NotDetected); Benzodiazepines Screen,Urine Detected (NotDetected); Cocaine Screen,Urine Not Detected (NotDetected); Methadone Screen, Urine Not Detected (NotDetected); Opiate Screen,Urine Not Detected (NotDetected); Oxycodone Screen, Urine Not Detected (NotDetected); Phencyclidine Screen,Urine Not Detected (NotDetected); Tricyclic Antidepressant,Urine Not Detected (NotDetected); Urn Cannabinoid Scrn Not Detected (NotDetected)
[2020-11-09] MEDS ORDERED: LORazepam 1 MG TAB PO STA (09:24)
[2020-11-09] MEDS ORDERED: DIVALPROEX 500 MG TABLET.DR PO STA (09:45)
[2020-11-09 10:55] VITALS: BP 133/88; PULSE 90; TEMP 97.4
== END 2020-11-09 10:54 | disposition home or self-care (01) ==
LOC: EC 06:53
DX: F41.9 Anxiety disorder, unspecified (principal); F17.200 Nicotine dependence, unspecified, uncomplicated; Z79.899 Other long term (current) drug therapy
CPT/HCPCS: 80306; 82075; 99285

== ENCOUNTER 2021-03-30 16:12 | Inpatient (IN) | payer OTHER ==
[2021-03-30] MEDS ORDERED: ONDANSETRON 4 MG/2 ML VIAL IVP STA (17:06)
[2021-03-30] MEDS ORDERED: SODIUM CHLORIDE 0.9% 1,000 ML IV STA (17:06)
--- NOTE | 2021-03-30 17:06 | ED ---
Anxiety HPI - General Chief Complaint: Anxiety Stated Complaint: detoxing/male Time Seen by Provider: 03/30/21 16:23 Source: patient, RN notes reviewed Mode of arrival: ambulatory - History of Present Illness Initial Comments: 25-year-old black male patient presents to the emergency room with increasing anxiety and help with alcohol detox. Patient states he drinks 524 ounce beers a day and has had 2 already today last being at noon. Patient states he has had alcohol withdrawal seizures in the past. Has been in [place] and would like to go back. Patient feels tremulous area states he has not had much of an appetite cannot comment when he last ate. Patient denies any nausea, vomiting, diarrhea, headache or fevers. Patient denies any trauma, denies any pain. Denies homicidal or suicidal ideation. Patient alert and oriented 4. MD Complaint: anxiety -: year(s) Symptoms: other (Tremors) Place: home Previous History of Same: Yes Severity: moderate Quality: constant Provoking factors: other (Alcohol abuse) Improves With: alcohol use Worsens With: other (Alcohol withdrawl) Associated symptoms: anorexia - Related Data Home Medications: Home Medications Medication Instructions Recorded Confirmed No Known Home Medications 03/30/21 03/30/21 Allergies/Adverse Reactions: Allergies Allergy/AdvReac Type Severity Reaction Status Date / Time No Known Allergies Allergy Verified 03/30/21 16:46 Review of Systems ROS Statement: Those systems with pertinent positive or pertinent negative responses have been documented in the HPI. ROS Other: All systems not noted in ROS Statement are negative. Past Medical History Past Medical History: No Reported History Additional Past Medical History / Comment(s): Previous seizures alcohol related, alcoholism History of Any Multi-Drug Resistant Organisms: None Reported Past Surgical History: No Surgical Hx Reported Additional Past Surgical History / Comment(s): Pt states he has never had surgery. Past Anesthesia/Blood Transfusion Reactions: No Reported Reaction Additional Past Anesthesia/Blood Transfusion Reaction / Comment(s): Pt has never had surgery Past Psychological History: Anxiety, Depression Smoking Status: Current every day smoker Past Alcohol Use History: Abuse, Daily, Heavy Past Drug Use History: Marijuana - Past Family History Mother Family Medical History: No Reported History Additional Family Medical History / Comment(s): Mother is healthy Father Family Medical History: No Reported History Additional Family Medical History / Comment(s): Father is is an alcoholic General Exam Limitations: no limitations General appearance: alert, appears intoxicated, anxious, cachectic Head exam: Present: atraumatic, normocephalic, normal inspection Eye exam: Present: normal appearance, PERRL, EOMI. Absent: scleral icterus, conjunctival injection, periorbital swelling ENT exam: Present: normal exam, normal oropharynx, mucous membranes moist Neck exam: Present: normal inspection, full ROM. Absent: tenderness, meningismus, lymphadenopathy, thyromegaly Respiratory exam: Present: normal lung sounds bilaterally. Absent: respiratory distress, wheezes, rales, rhonchi, stridor Cardiovascular Exam: Present: tachycardia, normal heart sounds. Absent: JVD GI/Abdominal exam: Present: soft, normal bowel sounds. Absent: distended, tenderness, guarding, rebound, rigid Extremities exam: Present: full ROM. Absent: tenderness, pedal edema, calf tenderness Back exam: Present: normal inspection. Absent: full ROM, tenderness, CVA tenderness (R), CVA tenderness (L) Neurological exam: Present: alert, oriented X3, CN II-XII intact Psychiatric exam: Present: anxious. Absent: agitated, flat affect, manic, h omicidal ideation, suicidal ideation Skin exam: Present: warm, dry, intact, normal color. Absent: rash, cyanosis, diaphoretic, pallor Course Vital Signs 03/30/21 16:16 Temperature 98.2 F Pulse Rate 111 H Respiratory 20 Rate Blood Pressure 124/72 O2 Sat by Pulse 98 Oximetry Medical Decision Making - Medical Decision Making Patient here for detox, but presents tremulous states that he has had history of seizures from alcohol withdrawal. Patient alcohol level today is 0.362, patient given Ativan for tremors. Glucose of 69 patient given something to eat. AST 265 and AST of 82 hemoglobin and hematocrit within normal limits. Will admit patient for acute alcohol intoxication. Case discussed with Dr. Plasencia will admit patient for alcohol poisoning to Dr. Maurer on [facility] protocol. - Lab Data Result diagrams: 03/30/21 18:10 03/30/21 18:10 Lab Results 03/30/21 03/30/21 Range/Units 18:10 18:10 WBC 4.2 (3.8-10.6) k/uL RBC 4.33 (4.30-5.90) m/uL Hgb 14.0 (13.0-17.5) gm/dL Hct 43.3 (39.0-53.0) % MCV 99.9 (80.0-100.0) fL MCH 32.4 (25.0-35.0) pg MCHC 32.4 (31.0-37.0) g/dL RDW 14.0 (11.5-15.5) % MPV 8.3 Sodium 141 (137-145) mmol/L Potassium 4.4 (3.5-5.1) mmol/L Chloride 101 (98-107) mmol/L Carbon Dioxide 20 L (22-30) mmol/L Anion Gap 20 mmol/L BUN 3 L (9-20) mg/dL Creatinine 0.60 L (0.66-1.25) mg/dL Est GFR (CKD-EPI)AfAm >90 (>60 ml/min/1.73 sqM) Est GFR (CKD-EPI)NonAf >90 (>60 ml/min/1.73 sqM) Glucose 69 L (74-99) mg/dL Calcium 9.2 (8.4-10.2) mg/dL Magnesium 1.9 (1.6-2.3) mg/dL Total Bilirubin 0.6 (0.2-1.3) mg/dL AST 265 H (17-59) U/L ALT 82 H (4-49) U/L Alkaline Phosphatase 114 (38-126) U/L Total Protein 8.7 H (6.3-8.2) g/dL Albumin 5.1 H (3.5-5.0) g/dL Serum Alcohol 362 H* mg/dL Disposition Clinical Impression: Alcohol poisoning Disposition: ADMITTED IP TO THIS [facility] Condition: Fair Instructions (If sedation given, give patient instructions): Generalized Anxie ty Disorder (ED) Referrals: Rosales Maurer MD [Primary Care Provider] - 1-2 days Decision Date: 03/30/21 Decision Time: 19:09
[2021-03-30] MEDS ORDERED: LORazepam 2 MG/ML INJ IV STA (18:09)
[2021-03-30 18:31] LABS: ALT 82 U/L (4-49); AST 265 U/L (17-59); African American GFR (CKD) >90 (>60 ml/min/1.73 sqM); Albumin 5.1 g/dL (3.5-5.0); Alkaline Phosphatase 114 U/L (38-126); Anion Gap 20 mmol/L; Blood Urea Nitrogen 3 mg/dL (9-20); Calcium 9.2 mg/dL (8.4-10.2); Carbon Dioxide 20 mmol/L (22-30); Chloride 101 mmol/L (98-107); Glucose 69 mg/dL (74-99); Magnesium 1.9 mg/dL (1.6-2.3); Non-African American GFR(CKD) >90 (>60 ml/min/1.73 sqM); Potassium 4.4 mmol/L (3.5-5.1); Sodium 141 mmol/L (137-145); Total Bilirubin 0.6 mg/dL (0.2-1.3); Total Protein 8.7 g/dL (6.3-8.2)
[2021-03-30 18:39] LABS: Basophils # (A) 0.1 k/uL (0-0.2); Basophils % (A) 2 %; Eosinophils # (A) 0.1 k/uL (0-0.7); Eosinophils % (A) 1 %; HCT 43.3 % (39.0-53.0); Lymphocytes # (A) 1.1 k/uL (1.0-4.8); Lymphocytes % (A) 25 %; MCH 32.4 pg (25.0-35.0); MCHC 32.4 g/dL (31.0-37.0); MCV 99.9 fL (80.0-100.0); Mean Platelet Volume 8.3; Monocytes # (A) 0.3 k/uL (0-1.0); Monocytes % (A) 7 %; Neutrophils # (A) 2.7 k/uL (1.3-7.7); Neutrophils % (A) 63 %; RBC 4.33 m/uL (4.30-5.90); WBC 4.2 k/uL (3.8-10.6)
[2021-03-30 18:46] LABS: Alcohol 362 mg/dL
[2021-03-30] MEDS ORDERED: IBUPROFEN 400 MG TAB PO PRN (19:05)
[2021-03-30] MEDS ORDERED: NALOXONE 0.4 MG/ML 1 ML VIAL IV PRN (19:05)
[2021-03-30] MEDS ORDERED: LORazepam 2 MG/ML INJ IV PRN ×2 (19:07)
[2021-03-30] MEDS ORDERED: THIAMINE 100 MG/ML 2 ML VIAL IM STA (19:07)
[2021-03-30] MEDS: THIAMINE 100 MG TAB PO SCH (19:11)
[2021-03-30 19:31] LABS: Anisocytosis (M) Present; Platelet Count 81 k/uL (150-450); Target Cells Present
[2021-03-30 19:32] LABS: Poikilocytosis (M) Present
[2021-03-30] MEDS: LORazepam 2 MG/ML INJ IV PRN (22:08)
[2021-03-31] MEDS: LORazepam 2 MG/ML INJ IV PRN ×4 (02:49→13:13)
[2021-03-31 06:57] LABS: Amphetamine Screen,Urine Not Detected (NotDetected); Barbiturate Screen,Urine Not Detected (NotDetected); Benzodiazepines Screen,Urine Detected (NotDetected); Cocaine Screen,Urine Not Detected (NotDetected); Methadone Screen, Urine Not Detected (NotDetected); Opiate Screen,Urine Not Detected (NotDetected); Oxycodone Screen, Urine Not Detected (NotDetected); Phencyclidine Screen,Urine Not Detected (NotDetected); Tricyclic Antidepressant,Urine Not Detected (NotDetected); Urn Cannabinoid Scrn Not Detected (NotDetected)
[2021-03-31] MEDS: THIAMINE 100 MG TAB PO SCH ×2 (07:54→18:01)
[2021-03-31 17:44] LABS: Basophils # (A) 0.1 k/uL (0-0.2); Basophils % (A) 2 %; Eosinophils # (A) 0.2 k/uL (0-0.7); Eosinophils % (A) 3 %; HCT 42.3 % (39.0-53.0); HGB 14.5 gm/dL (13.0-17.5); Lymphocytes # (A) 0.6 k/uL (1.0-4.8); Lymphocytes % (A) 9 %; MCH 34.2 pg (25.0-35.0); MCHC 34.2 g/dL (31.0-37.0); MCV 100.1 fL (80.0-100.0); Monocytes # (A) 0.3 k/uL (0-1.0); Monocytes % (A) 4 %; Neutrophils % (A) 80 %; RBC 4.23 m/uL (4.30-5.90); RDW 13.2 % (11.5-15.5); WBC 6.2 k/uL (3.8-10.6)
[2021-03-31 17:46] LABS: Platelet Count 71 k/uL (150-450)
--- NOTE | 2021-03-31 17:52 | HP ---
HISTORY AND PHYSICAL CHIEF COMPLAINT: Acute alcohol intoxication and impending DTs. HISTORY OF PRESENT ILLNESS: This is another admission for this 25-year-old pleasant -Swazi male with a serious chronic alcohol problem. He is intoxicated most of the time. He has been admitted for detox, but goes right back to drinking. He came to the emergency room intoxicated and requesting treatment. REVIEW OF SYSTEMS: He is somewhat lethargic. He denies any blackouts. He has had seizures in the past. He denies diplopia, chest pain, shortness of breath, abdominal pain, nausea, vomiting, hematemesis, melena, hematochezia, jaundice, renal failure, etc. Past medical history, family history, and personal and social histories are all otherwise unremarkable or noncontributory and unchanged. He does smoke. PHYSICAL EXAMINATION: Blood pressure is 123/87 with a pulse of 90, respirations of 32, and he is afebrile. In general he appeared to be slender and dehydrated. He was lethargic. Head, ears, eyes, nose, mouth and throat were normal. Neck veins were not distended. Chest was clear. Cardiac exam was normal. The abdomen was flat, soft and nontender without visceromegaly or masses. Bowel sounds were present. Extremities were normal. Neurologically he was slightly lethargic. He is admitted to the hospital with diagnoses: 1. Acute alcohol intoxication. 2. Chronic alcoholism. 3. Impending delirium tremens. 4. History of alcohol withdrawal seizures. PLAN: 1. Bedrest. 2. IV fluids. 3. CIWA protocol as well as seizure precautions. MMODL / IJN: [id number] /
[2021-03-31 17:53] LABS: Prothrombin Time 10.6 sec (9.0-12.0)
--- NOTE | 2021-03-31 17:55 | PN ---
PROGRESS NOTE DATE OF SERVICE: 03/31/2021 CHIEF COMPLAINT: Acute alcohol intoxication and DTs. HISTORY OF PRESENT ILLNESS: This gentleman is somewhat tremulous and he is slightly nauseated. He has had no seizures. PHYSICAL EXAMINATION: Vital signs are normal. His chest is clear. Cardiac exam is normal except for tachycardia. Abdomen is soft, nontender. IMPRESSION: 1. Acute alcohol intoxication. 2. Chronic alcoholism. 3. Delirium tremens. 4. History of alcohol withdrawal seizures. 5. Depression. PLAN: Continue with [facility] protocol. MMODL / IJN: [id number] /
[2021-04-01] MEDS: LORazepam 2 MG/ML INJ IV PRN ×3 (01:25→20:28)
[2021-04-01] MEDS: THIAMINE 100 MG TAB PO SCH ×2 (07:29→17:56)
[2021-04-01 10:20] LABS: African American GFR (CKD) 159.7 (60.0-200.0); Albumin/Globulin Ratio 1.67 (1.60-3.17); Anion Gap 18.1 mmol/L (4.00-12.00); BUN/Creat Ratio 8.33 Ratio (12.00-20.00); Calcium 9.6 mg/dL (8.7-10.3); Carbon Dioxide 22.9 mmol/L (21.6-31.8); Non-African American GFR(CKD) 137.8 (60.0-200.0); Potassium 3.8 mmol/L (3.5-5.5); Total Bilirubin 1.3 mg/dL (0.3-1.2)
--- NOTE | 2021-04-01 17:26 | PN ---
PROGRESS NOTE DATE OF SERVICE: 04/01/2021 CHIEF COMPLAINT: Acute alcohol intoxication and DTs. HISTORY OF PRESENT ILLNESS: This gentleman is still struggling. He is still nauseated. He has not gone into florid DTs, but he is tremulous. PHYSICAL EXAMINATION: Chest is clear. The cardiac exam is normal. Abdomen is soft, nontender. IMPRESSION: 1. Acute alcohol intoxication. 2. Chronic alcoholism. 3. Delirium tremens. 4. Depression. PLAN: Continue with the current program with IV fluids and CIWA protocol. ROSELYN / TATIANA: [id number] /
[2021-04-01 21:51] VITALS: RESP 16
[2021-04-02] MEDS: THIAMINE 100 MG TAB PO SCH (08:29)
[2021-04-02] MEDS: LORazepam 2 MG/ML INJ IV PRN (09:37)
[2021-04-02 11:48] VITALS: BP 114/68; PULSE 102; TEMP 98.6
--- NOTE | 2021-04-02 13:59 | P.CONS ---
History of Present Illness - Reason for Consult Consult date: 04/02/21 rectal bleeding Requesting physician: Rosales Maurer - Chief Complaint Alcohol intoxication and withdrawal - History of Present Illness This is a pleasant 25-year-old -Mongolian male who presented to the emergency room 3 days ago with increased anxiety who was going through alcohol withdrawal and detox. He has a history of heavy alcohol abuse drinking at least 524 ounce beers a day. He came in with an alcohol level of 352. He states he's had previous alcohol withdrawal seizures in the past. He has previously been to [place]. He denies any abdominal pain, nausea, or vomiting. He does state that he had some dark stool times one about one month ago. His last hemoglobin on 03/31/2021 was 14.5, hematocrit 42.3, with platelets of 71,000. He denies any current use of any blood thinners for frequent NSAID use. He denies any history of peptic ulcer disease, gastric reflux disease, or varices. Patient denies any previous history of upper or lower endoscopy. He states he does have some straining and hard stools, but states he does usually go regularly. Review of Systems REVIEW OF SYSTEMS: CARDIOPULMONARY: No chest pain or shortness of breath. Gastrointestinal: No abdominal pain. No nausea or vomiting. No hematemesis, coffee-ground emesis. Positive rectal bleeding. GENITOURINARY: No dysuria or hematuria. MUSCULOSKELETAL: Reports normal range of motion., Joint pain. SKIN: No rashes. No jaundice. ENDOCRINE: Unremarkable. 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 NEUROLOGY: No change in mental status. Denies dizziness, headache. ENT: Vision unremarkable. CONSTITUTIONAL: No recent weight loss. No fever, chills, night sweats. Past Medical History Past Medical History: No Reported History Additional Past Medical History / Comment(s): Previous seizures alcohol related, alcoholism History of Any Multi-Drug Resistant Organisms: None Reported Past Surgical History: No Surgical Hx Reported Additional Past Surgical History / Comment(s): Pt states he has never had surgery. Past Anesthesia/Blood Transfusion Reactions: No Reported Reaction Additional Past Anesthesia/Blood Transfusion Reaction / Comm: Pt has never had surgery Past Psychological History: Anxiety, Depression Additional Psychological History / Comment(s): Pt resides with his girlfriend. He is independent. Pt states he has been in rehab in the past for alcoholism. Smoking Status: Current every day smoker Past Alcohol Use History: Abuse, Daily, Heavy Additional Past Alcohol Use History / Comment(s): Pt started smoking in 2013. Pt states he drinks 4-25 ounce beers a day and last drank 09/24/20 Past Drug Use History: Marijuana - Past Family History Mother Family Medical History: No Reported History Additional Family Medical History / Comment(s): Mother is healthy Father Family Medical History: No Reported History Additional Family Medical History / Comment(s): Father is is an alcoholic Medications and Allergies Home Medications Medication Instructions Recorded Confirmed Type Hydrocortisone Pr Cream 1 applic RECTAL BID 30 Days #30 04/02/21 Rx [Proctosol-Hc 2.5%] gram Thiamine [Vitamin B-1] 100 mg PO BID-W/MEALS #60 tab 04/02/21 Rx polyethylene glycoL 3350 [Miralax] 17 gm PO DAILY 30 Days #60 04/02/21 Rx [email or web address] Allergies Allergy/AdvReac Type Severity Reaction Status Date / Time No Known Allergies Allergy Verified 03/30/21 16:46 Physical Exam Vitals: Vital Signs Temp Pulse Pulse Resp BP Pulse Ox 04/02/21 11:47 98.6 F 102 H 114/68 96 04/02/21 08:00 91 04/02/21 05:55 99.1 F 91 16 110/75 98 04/01/21 21:00 99.2 F 90 16 125/89 98 04/01/21 15:30 84 125/76 96 04/01/21 14:29 98.4 F 81 17 129/91 99 Intake and Output 04/01/21 04/02/21 04/02/21 22:59 06:59 14:59 Intake Total 100 400 Balance 100 400 Intake: Oral 100 400 Other: Voiding Method Toilet Toilet # Voids 1 General appearance: The patient is alert, oriented, appears in no acute distress. HET: Head is normocephalic and atraumatic. Pupils are equal and reactive. Oropharynx is clear without lesions. Neck: Supple without lymphadenopathy. Trachea midline. Heart: S1 S2. Regular rate and rhythm. Lungs: Clear to auscultation. Abdomen: Soft, nontender, nondistended with bowel sounds. No guarding or rigidity. Rectum: No fissures or external hemorrhoids noted. Extremities: Normal skin color and turgor. No pedal edema. Neurological: No focal deficits. Alert and oriented 3. Results CBC & Chem 7: 03/31/21 17:25 03/31/21 17:25 Assessment and Plan (1) History of melena Narrative/Plan: Pleasant 25-year-old -Mongolian male who presented to the hospital 3 days ago for increased anxiety related to alcohol abuse and withdrawal. He has no significant past medical history, denies any use of NSAIDs or blood thinners. He reported having one dark stool about a month ago. NO history of peptic ulcer disease or reflux disease. He does however state he has a history of hard stools and straining. No prior history of EGD or colonoscopy. Previous hemoglobin 14.5, hematocrit 42.3, platelets 71,000 with an INR 1.0. No plans for endoscopic evaluation. Avoid NSAIDs, Protonix 40 mg once daily, Anusol per rectum, add MiraLAX as needed. Current Visit: Yes Status: Acute Code(s): Z87.19 - PERSONAL HISTORY OF OTHER DISEASES OF THE DIGESTIVE SYSTEM SNOMED Code(s): 182364818 (2) Alcohol abuse Current Visit: Yes Status: Acute Code(s): F10.10 - ALCOHOL ABUSE, UN COMPLICATED SNOMED Code(s): 21038486 (3) Alcohol withdrawal syndrome Current Visit: No Status: Acute Code(s): F10.239 - ALCOHOL DEPENDENCE WITH WITHDRAWAL, UNSPECIFIED SNOMED Code(s): 309212420 Plan: 1. Continue symptomatic and supportive care 2. Anusol cream as needed 3. MiraLAX daily as needed 4. Alcohol cessation 5. Patient may be discharged home from a gastroenterology standpoint with outpatient follow-up as needed Thank you for this consultation, we will sign off at this time Dr. Inocencio Arboleda I agree with the dictator's note, documented as a scribe by Dominique Bailey.
--- NOTE | 2021-04-02 18:31 | DS ---
DISCHARGE SUMMARY CHIEF COMPLAINT: Acute alcohol intoxication and DTs. HISTORY OF PRESENT ILLNESS AND PHYSICAL EXAMINATION: Details of this man's history and physical can be found in the initial workup. LABORATORY STUDIES: While he was in the hospital, he had laboratory studies, details of which can be found in the laboratory section of his chart. COURSE IN THE HOSPITAL: After admission, he was placed on bedrest and started on intravenous fluids and CIWA protocol. He went into early DTs, but stabilized and improved. While in the hospital, he was complaining of rectal bleeding and was seen by Gastroenterology who recommended stool softeners and hydrocortisone cream. He was doing well and it was felt that he could be discharged on April 02 and he will go home on his usual activity and diet and follow up in the office in a few days and we talked to him about such things as Vivitrol, acamprosate, DT, AA, etc. FINAL DIAGNOSES: 1. Acute alcohol intoxication. 2. Alcoholic hepatitis. 3. Chronic alcoholism. 4. Proctitis. 5. Constipation. OPERATIONS: None. CONSULTATIONS: Gastroenterology. He is improved. MMODL / IJN: [id number] /
[2021-04-02] MEDS ORDERED: HYDROCORTISONE 2.5% RECTAL CREAM 30 GM TUBE RECTAL SCH (21:00)
[2021-04-03] MEDS ORDERED: polyethylene glycoL 3350 17 GM POWD.PACK PO SCH (09:00)
== END 2021-04-02 15:52 | disposition home or self-care (01) | DRG 918 ==
LOC: EC 16:12 → 5NMEDONC 19:01
PROVIDERS: ADMIT Family Medicine; ATTEND Family Medicine
DX: T51.0X1A Toxic effect of ethanol, accidental (unintentional), initial encounter (principal); F10.231 Alcohol dependence with withdrawal delirium; F10.229 Alcohol dependence with intoxication, unspecified; F17.210 Nicotine dependence, cigarettes, uncomplicated; F32.9 Major depressive disorder, single episode, unspecified; F41.9 Anxiety disorder, unspecified; K59.00 Constipation, unspecified; K70.10 Alcoholic hepatitis without ascites; Y90.8 Blood alcohol level of 240 mg/100 ml or more; Z87.19 Personal history of other diseases of the digestive system; Z81.1 Family history of alcohol abuse and dependence; Z71.41 Alcohol abuse counseling and surveillance of alcoholic; Z20.822 Contact with and (suspected) exposure to COVID-19; K62.89 Other specified diseases of anus and rectum
CPT/HCPCS: 36415; 80053; 80306; 80320; 82140; 83735; 85025; 85610; 87636; 96361; 96374; 96375; 99285

== ENCOUNTER 2021-08-01 08:59 | Inpatient (IN) | payer OTHER ==
[2021-08-01] MEDS ORDERED: ONDANSETRON 4 MG/2 ML VIAL IVP STA (09:11)
[2021-08-01] MEDS ORDERED: LORazepam 2 MG/ML INJ IV STA (09:11)
[2021-08-01] MEDS ORDERED: SODIUM CHLORIDE 0.9% 500 ML 500 ML IV ONE (09:12)
[2021-08-01] MEDS ORDERED: SODIUM CHLORIDE 0.9% 1,000 ML IV ONE (09:12)
--- NOTE | 2021-08-01 09:13 | ED ---
General Adult HPI - General Chief complaint: Alcohol Stated complaint: alcohol withdrawal Time Seen by Provider: 08/01/21 09:00 Source: patient, RN notes reviewed, old records reviewed Mode of arrival: ambulatory Limitations: no limitations - History of Present Illness Initial comments: This is a 25-year-old male who presents emergency Department states he is here because he wants to try to stop drinking. Patient states his last drink he believes ingested at 5 PM. Patient states since then he had some shaking and complains of vomiting. Patient states his little bit of tenderness in the abdomen but he also states it hurts in his chest when he vomits. Patient states she has a mild headache. Patient denies any numbness weakness. Patient denies any palpitations or difficulty breathing. Patient states his chest pain is only when he vomits. Patient denies any diarrhea. Patient denies any recent fever chills or cough. - Related Data Previous Rx's Medication Instructions Recorded Hydrocortisone Pr Cream 1 applic RECTAL BID 30 Days #30 04/02/21 [Proctosol-Hc 2.5%] gram Thiamine [Vitamin B-1] 100 mg PO BID-W/MEALS #60 tab 04/02/21 polyethylene glycoL 3350 [Miralax] 17 gm PO DAILY 30 Days #60 04/02/21 [email or web address] Allergies Allergy/AdvReac Type Severity Reaction Status Date / Time No Known Allergies Allergy Verified 08/01/21 10:26 Review of Systems ROS Statement: Those systems with pertinent positive or pertinent negative responses have been documented in the HPI. ROS Other: All systems not noted in ROS Statement are negative. Past Medical History Past Medical History: No Reported History Additional Past Medical History / Comment(s): Previous seizures alcohol related, alcoholism History of Any Multi-Drug Resistant Organisms: None Reported Past Surgical History: No Surgical Hx Reported Additional Past Surgical History / Comment(s): Pt states he has never had surgery. Past Anesthesia/Blood Transfusion Reactions: No Reported Reaction Additional Past Anesthesia/Blood Transfusion Reaction / Comment(s): Pt has never had surgery Past Psychological History: Anxiety, Depression Smoking Status: Current every day smoker Past Alcohol Use History: Abuse, Daily, Heavy Past Drug Use History: Marijuana - Past Family History Mother Family Medical History: No Reported History Additional Family Medical History / Comment(s): Mother is healthy Father Family Medical History: No Reported History Additional Family Medical History / Comment(s): Father is is an alcoholic General Exam - General Exam Comments Initial Comments: GENERAL: Patient is well-developed and well-nourished. Patient is nontoxic and well- hydrated and is in mild distress. ENT: Neck is soft and supple. No significant lymphadenopathy is noted. Oropharynx is clear. Moist mucous membranes. Neck has full range of motion without eliciting any pain. EYES: The sclera were anicteric and conjunctiva were pink and moist. Extraocular movements were intact and pupils were equal round and reactive to light. Eyelids were unremarkable. PULMONARY: Unlabored respirations. Good breath sounds bilaterally. No audible rales rhonchi or wheezing was noted. CARDIOVASCULAR: There is a regular rate and rhythm without any murmurs gallops or rubs. ABDOMEN: Diffuse mild tenderness no rebound no guarding. SKIN: Skin is clear with no lesions or rashes and otherwise unremarkable. NEUROLOGIC: Patient is alert and oriented x3. Cranial nerves II through XII are grossly intact. Motor and sensory are also intact. Normal speech, volume and content. Symmetrical smile. MUSCULOSKELETAL: Normal extremities with adequate strength and full range of motion. No lower extremity swelling or edema. No calf tenderness. LYMPHATICS: No significant lymphadenopathy is noted PSYCHIATRIC: Normal psychiatric evaluation. Limitations: no limitations Course Vital Signs 08/01/21 09:00 Temperature 98.0 F Pulse Rate 101 H Respiratory 16 Rate Blood Pressure 113/84 O2 Sat by Pulse 100 Oximetry Medical Decision Making - Medical Decision Making EKG shows normal sinus rhythm at 76 bpm NM interval is 122 QRS is 86 QT interval is 494 QTC is 555. Patient's prolonged QT interval Patient was given Reglan normal saline as well as magnesium in the emergency room. Patient was given 1 mg of Ativan as well. I went back and reevaluated the patient was feeling considerably better but nowhere near his baseline. I spoke with Dr. Victoria he agreed to admit the patient admitted the patient I wrote admitting orders. - Lab Data Result diagrams: 08/01/21 09:40 08/01/21 09:40 Lab Results 08/01/21 08/01/21 Range/Units 09:40 09:40 WBC 23.1 H (3.8-10.6) k/uL RBC 4.59 (4.30-5.90) m/uL Hgb 15.7 (13.0-17.5) gm/dL Hct 46.4 (39.0-53.0) % MCV 101.2 H (80.0-100.0) fL MCH 34.2 (25.0-35.0) pg MCHC 33.8 (31.0-37.0) g/dL RDW 13.7 (11.5-15.5) % Plt Count 393 (150-450) k/uL MPV 7.2 Neutrophils % 92 % Lymphocytes % 3 % Monocytes % 2 % Eosinophils % 2 % Basophils % 0 % Neutrophils # 21.2 H (1.3-7.7) k/uL Lymphocytes # 0.7 L (1.0-4.8) k/uL Monocytes # 0.5 (0-1.0) k/uL Eosinophils # 0.5 (0-0.7) k/uL Basophils # 0.1 (0-0.2) k/uL Macrocytosis Slight Sodium 137 (137-145) mmol/L Potassium 5.5 H (3.5-5.1) mmol/L Chloride 91 L (98-107) mmol/L Carbon Dioxide 22 (22-30) mmol/L Anion Gap 24 mmol/L BUN 17 (9-20) mg/dL Creatinine 1.76 H (0.66-1.25) mg/dL Est GFR (CKD-EPI)AfAm 60 (>60 ml/min/1.73 sqM) Est GFR (CKD-EPI)NonAf 52 (>60 ml/min/1.73 sqM) Glucose 157 H (74-99) mg/dL Calcium 9.9 (8.4-10.2) mg/dL Magnesium 1.5 L (1.6-2.3) mg/dL Total Bilirubin 1.3 (0.2-1.3) mg/dL AST 57 (17-59) U/L ALT 28 (4-49) U/L Alkaline Phosphatase 145 H (38-126) U/L Total Protein 9.5 H (6.3-8.2) g/dL Albumin 5.4 H (3.5-5.0) g/dL Serum Alcohol <10 mg/dL Disposition Clinical Impression: Alcohol withdrawal syndrome, Hypomagnesemia Disposition: ADMITTED IP TO THIS [facility] Referrals: Rosales Maurer MD [Primary Care Provider] - 1-2 days Time of Disposition: 10:29
[2021-08-01 09:47] LABS: Basophils # (A) 0.1 k/uL (0-0.2); Basophils % (A) 0 %; Eosinophils # (A) 0.5 k/uL (0-0.7); Eosinophils % (A) 2 %; HCT 46.4 % (39.0-53.0); HGB 15.7 gm/dL (13.0-17.5); Lymphocytes # (A) 0.7 k/uL (1.0-4.8); Lymphocytes % (A) 3 %; MCH 34.2 pg (25.0-35.0); MCHC 33.8 g/dL (31.0-37.0); MCV 101.2 fL (80.0-100.0); Macrocytosis Slight; Mean Platelet Volume 7.2; Monocytes # (A) 0.5 k/uL (0-1.0); Monocytes % (A) 2 %; Neutrophils # (A) 21.2 k/uL (1.3-7.7); Neutrophils % (A) 92 %; Platelet Count 393 k/uL (150-450); RBC 4.59 m/uL (4.30-5.90); RDW 13.7 % (11.5-15.5); WBC 23.1 k/uL (3.8-10.6)
[2021-08-01] MEDS ORDERED: METOCLOPRAMIDE 5 MG/ML 2 ML VIAL IVP STA (09:49)
[2021-08-01 09:55] LABS: AST 57 U/L (17-59); African American GFR (CKD) 60 (>60 ml/min/1.73 sqM); Albumin 5.4 g/dL (3.5-5.0); Alcohol <10 mg/dL; Alkaline Phosphatase 145 U/L (38-126); Anion Gap 24 mmol/L; Blood Urea Nitrogen 17 mg/dL (9-20); Calcium 9.9 mg/dL (8.4-10.2); Carbon Dioxide 22 mmol/L (22-30); Chloride 91 mmol/L (98-107); Glucose 157 mg/dL (74-99); Magnesium 1.5 mg/dL (1.6-2.3); Non-African American GFR(CKD) 52 (>60 ml/min/1.73 sqM); Potassium 5.5 mmol/L (3.5-5.1); Sodium 137 mmol/L (137-145); Total Bilirubin 1.3 mg/dL (0.2-1.3); Total Protein 9.5 g/dL (6.3-8.2)
[2021-08-01 10:02] LABS: ALT 28 U/L (4-49)
[2021-08-01] MEDS ORDERED: SODIUM CHLORIDE 0.9% 1,000 ML with MVI, ADULT NO.4 WITH VIT K 10 ML, THIAMINE 100 MG, F... IV ONE ×4 (10:31)
--- NOTE | 2021-08-01 10:31 | XR ---
EXAMINATION TYPE: XR chest 2V DATE OF EXAM: 08/01/2021 COMPARISON: NONE HISTORY: Difficulty breathing TECHNIQUE: Frontal and lateral views of the chest are obtained. FINDINGS: There is no focal air space opacity, pleural effusion, or pneumothorax seen. The cardiac silhouette size is within normal limits. The osseous structures are intact. IMPRESSION: No acute cardiopulmonary process.
[2021-08-01] MEDS ORDERED: LORazepam 2 MG/ML INJ IV PRN ×2 (10:33)
[2021-08-01] MEDS ORDERED: THIAMINE 100 MG/ML 2 ML VIAL IM STA (10:33)
[2021-08-01] MEDS: MAGNESIUM SULFATE-D5W PMX 1 GM in DEXTROSE/WATER 1 100ML.BAG IVPB SCH ×2 (10:56→12:12)
[2021-08-01] MEDS: LORazepam 2 MG/ML INJ IV PRN ×2 (16:01→22:47)
[2021-08-01] MEDS: THIAMINE 100 MG TAB PO SCH (17:43)
--- NOTE | 2021-08-01 18:59 | P.HPIM ---
History of Present Illness H&P Date: 08/01/21 Chief Complaint: Alcohol withdrawal 25-year-old male who presents emergency Department states he is here because he wants to try to stop drinking. Patient states his last drink he believes ingested at 5 PM. Patient states since then he had some shaking and complains of vomiting. Patient states his little bit of tenderness in the abdomen but he also states it hurts in his chest when he vomits. Patient states she has a mild headache. Patient denies any numbness weakness. Patient denies any palpitations or difficulty breathing. Patient states his chest pain is only when he vomits. Patient denies any diarrhea. Patient denies any recent fever chills or cough. Review of Systems REVIEW OF SYSTEMS: CONSTITUTIONAL: No fever, no malaise, no fatigue. HEENT: No recent visual problems or hearing problems. Denied any sore throat. CARDIOVASCULAR: No chest pain, orthopnea, PND, no palpitations, no syncope. PULMONARY: No shortness of breath, no cough, no hemoptysis. GASTROINTESTINAL: No diarrhea, no nausea, no vomiting, no abdominal pain. NEUROLOGICAL: No headaches, no weakness, no numbness. HEMATOLOGICAL: Denies any bleeding or petechiae. GENITOURINARY: Denies any burning micturition, frequency, or urgency. MUSCULOSKELETAL/RHEUMATOLOGICAL: Denies any joint pain, swelling, or any muscle pain. ENDOCRINE: Denies any polyuria or polydipsia. The rest of the 14-point review of systems is negative. Past Medical History Past Medical History: No Reported History Additional Past Medical History / Comment(s): Previous seizures alcohol related, alcoholism History of Any Multi-Drug Resistant Organisms: None Reported Past Surgical History: No Surgical Hx Reported Additional Past Surgical History / Comment(s): Pt states he has never had surgery. Past Anesthesia/Blood Transfusion Reactions: No Reported Reaction Additional Past Anesthesia/Blood Transfusion Reaction / Comment(s): Pt has never had surgery Past Psychological History: Anxiety, Depression Smoking Status: Current every day smoker Past Alcohol Use History: Abuse, Daily, Heavy Past Drug Use History: Marijuana - Past Family History Mother Family Medical History: No Reported History Additional Family Medical History / Comment(s): Mother is healthy Father Family Medical History: No Reported History Additional Family Medical History / Comment(s): Father is is an alcoholic Medications and Allergies Home Medications Medication Instructions Recorded Confirmed Type No Known Home Medications 08/01/21 08/01/21 History Allergies Allergy/AdvReac Type Severity Reaction Status Date / Time No Known Allergies Allergy Verified 08/01/21 10:26 Physical Exam Vitals: Vital Signs Temp Pulse Resp BP Pulse Ox 08/01/21 10:03 75 18 129/88 98 08/01/21 09:00 98.0 F 101 H 16 113/84 100 Intake and Output 07/31/21 08/01/21 08/01/21 22:59 06:59 14:59 Other: Weight 54.431 kg - Constitutional General appearance: Present: average body habitus, cooperative, no acute distress - EENT Eyes: Present: anicteric sclerae, EOMI, PERRLA, normal appearance ENT: Present: hearing grossly normal, normal oropharynx Ears: bilateral: normal - Neck Neck: Present: normal ROM. Absent: lymphadenopathy, rigidity, thyromegaly Carotids: negative: bruit present Thyroid: bilateral: normal size, negative: enlarged, nodule - Respiratory Respiratory: bilateral: CTA, negative: rales, rhonchi, wheezing - Cardiovascular Rhythm: regular Heart sounds: normal: S1, S2 Abnormal Heart Sounds: Absent: systolic murmur, diastolic murmur - Gastrointestinal General gastrointestinal: Present: normal bowel sounds, soft. Absent: distended, organomegaly, tenderness - Genitourinary Genitourinary Comment(s): deferred - Integumentary Integumentary: Present: normal turgor. Absent: jaundiced, rash, ulcer - Neurologic Neurologic: Present: CNII-XII intact. Absent: focal deficits - Musculoskeletal Musculoskeletal: Present: gait normal, strength equal bilaterally - Psychiatric Psychiatric: Present: A&O x's 3, appropriate affect, intact judgment & insight Results CBC & Chem 7: 08/01/21 09:40 08/01/21 09:40 Labs: Abnormal Lab Results - Last 24 Hours (Table) 08/01/21 08/01/21 Range/Units 09:40 09:40 WBC 23.1 H (3.8-10.6) k/uL MCV 101.2 H (80.0-100.0) fL Neutrophils # 21.2 H (1.3-7.7) k/uL Lymphocytes # 0.7 L (1.0-4.8) k/uL Potassium 5.5 H (3.5-5.1) mmol/L Chloride 91 L (98-107) mmol/L Creatinine 1.76 H (0.66-1.25) mg/dL Glucose 157 H (74-99) mg/dL Magnesium 1.5 L (1.6-2.3) mg/dL Alkaline Phosphatase 145 H (38-126) U/L Total Protein 9.5 H (6.3-8.2) g/dL Albumin 5.4 H (3.5-5.0) g/dL Assessment and Plan Assessment: 1. EtOH abuse/withdrawal - Patient remains on IV fluid resuscitation in form of banana bag; CIWA protocol with Ativan; continue with thiamine and folic acid; we will monitor strict DAVY's and renal function and electrolytes 2. Leukocytosis; possibly reactive; no signs of sepsis; we will monitor CBC and initiate sepsis workup if WBC continues to trend up 3. Hyperkalemia; possibly related to acute renal injury; we will monitor electrolytes with further recommendations pending results 4. Acute renal injury; IV fluid hydration as indicated above; monitor strict DAVY's, daily weights, renal function and electrolytes; avoid nephrotoxins and hypotension 5. Hypomagnesemia; supplemented in ED; monitor electrolytes DVT prophylaxis; SCDs CODE STATUS; full code
[2021-08-02] MEDS: LORazepam 2 MG/ML INJ IV PRN ×2 (04:32→13:02)
[2021-08-02 05:57] LABS: Appearance,Urine Clear (Clear); Bilirubin,Urine Negative (Negative); Blood,Urine Negative (Negative); Color,Urine Light Yellow; Glucose,Urine (UA) Negative (Negative); Ketones,Urine Negative (Negative); Leukocyte Esterase,Urine Negative (Negative); Nitrite,Urine Negative (Negative); PH, Urine 5.5 (5.0-8.0); Protein,Urine Negative (Negative); Specific Gravity,Urine 1.012 (1.001-1.035); Urobilinogen,Urine <2.0 mg/dL (<2.0)
[2021-08-02 06:14] LABS: Basophils # (A) 0.1 k/uL (0-0.2); Basophils % (A) 0 %; Eosinophils # (A) 0.1 k/uL (0-0.7); Eosinophils % (A) 1 %; HCT 39.5 % (39.0-53.0); HGB 13.1 gm/dL (13.0-17.5); Lymphocytes # (A) 1.6 k/uL (1.0-4.8); Lymphocytes % (A) 13 %; MCH 33.8 pg (25.0-35.0); MCHC 33.3 g/dL (31.0-37.0); MCV 101.6 fL (80.0-100.0); Macrocytosis Slight; Mean Platelet Volume 6.9; Monocytes # (A) 0.6 k/uL (0-1.0); Monocytes % (A) 5 %; Neutrophils # (A) 10.4 k/uL (1.3-7.7); Neutrophils % (A) 81 %; Platelet Count 272 k/uL (150-450); RBC 3.88 m/uL (4.30-5.90); RDW 13.5 % (11.5-15.5); WBC 12.9 k/uL (3.8-10.6)
[2021-08-02 09:08] LABS: African American GFR (CKD) 67.4 (60.0-200.0); Anion Gap 8.8 mmol/L (4.00-12.00); BUN/Creat Ratio 12.5 Ratio (12.00-20.00); Calcium 9.3 mg/dL (8.7-10.3); Carbon Dioxide 28.2 mmol/L (21.6-31.8); Magnesium 2.4 mg/dL (1.5-2.4); Non-African American GFR(CKD) 58.2 (60.0-200.0); Potassium 3.9 mmol/L (3.5-5.5)
[2021-08-02] MEDS: THIAMINE 100 MG TAB PO SCH ×2 (09:57→18:16)
[2021-08-02] MEDS ORDERED: SODIUM CHLORIDE 0.9% 1,000 ML IV SCH (11:30)
[2021-08-02 12:12] VITALS: BP 122/80; PULSE 70; RESP 18; TEMP 98.4
--- NOTE | 2021-08-02 12:26 | XR ---
EXAMINATION TYPE: XR KUB DATE OF EXAM: 08/02/2021 COMPARISON: NONE HISTORY: Pain TECHNIQUE: Single supine KUB image of the abdomen is obtained FINDINGS: Small bowel demonstrates no evidence for dilatation or air fluid levels. Gas and fecal material is seen in non-distended colon. No convincing evidence for pneumoperitoneum. No unusual calcifications. The lung bases are clear. The osseous structures are intact. IMPRESSION: 1. Overall nonobstructive bowel gas pattern.
--- NOTE | 2021-08-02 13:44 | P.NPCON ---
History of Present Illness - Reason for Consult Consult date: 08/02/21 acute renal failure - Chief Complaint Acute kidney injury and alcohol is on - History of Present Illness This is a 25-year-old male seen in consultation because of acute kidney injury He came in because he wanted just stopped drinking. Last drink was yesterday evening He does admit to having huge amount of nausea vomiting and diarrhea for one day. No chest pain no shortness of breath no seizures recently but he has had seizures remotely and is on medication is controlling it. Denies taking any nonsteroidals. He has no history of hematuria bladder problems. His creatinine was normal at 0.6 on 03/31/2021 and on admission it was 1.76 and improved to 1.6 this morning. Denies any muscle aches to suggest rhabdomyolysis. Denies taking any other drugs Past Medical History Past Medical History: No Reported History Additional Past Medical History / Comment(s): Previous seizures alcohol related, alcoholism History of Any Multi-Drug Resistant Organisms: None Reported Past Surgical History: No Surgical Hx Reported Additional Past Surgical History / Comment(s): Pt states he has never had surgery. Past Anesthesia/Blood Transfusion Reactions: No Reported Reaction Additional Past Anesthesia/Blood Transfusion Reaction / Comment(s): Pt has never had surgery Past Psychological History: Anxiety, Depression Smoking Status: Current every day smoker Past Alcohol Use History: Abuse, Daily, Heavy Past Drug Use History: Marijuana - Past Family History Mother Family Medical History: No Reported History Additional Family Medical History / Comment(s): Mother is healthy Father Family Medical History: No Reported History Additional Family Medical History / Comment(s): Father is is an alcoholic Medications and Allergies Home Medications Medication Instructions Recorded Confirmed Type No Known Home Medications 08/01/21 08/01/21 History Allergies Allergy/AdvReac Type Severity Reaction Status Date / Time No Known Allergies Allergy Verified 08/01/21 10:26 Physical Exam Vitals: Vital Signs Temp Pulse Pulse Resp BP Pulse Ox 08/02/21 12:08 98.4 F 70 18 122/80 100 08/02/21 09:00 72 79 16 08/02/21 04:34 98.7 F 79 16 104/67 99 08/01/21 20:39 99.1 F 82 16 117/66 100 08/01/21 20:00 16 08/01/21 15:35 98.9 F 57 L 16 108/66 100 08/01/21 14:16 18 Intake and Output 08/01/21 08/02/21 08/02/21 22:59 06:59 14:59 Intake Total 1820 540 Balance 1820 540 Intake: Intake, IV Titration 1200 Amount Magnesium Sulfate-D5w Pmx 200 1 gm In Dextrose/Water 1 100ml.bag @ 100 mls/hr IVPB Q1H [facility] Rx#: [id number] Sodium Chloride 0.9% 1, 1000 000 ml @ 250 mls/hr IV . Q4H3M ONE with Mvi, Adult No.4 with Vit K 10 ml with Thiamine 100 mg with Folic Acid 1 mg Rx#: [id number] Oral 620 540 Other: Voiding Method Toilet Toilet # Voids 3 2 On examination is awake alert oriented comfortable No tenderness his muscles HEENT exam no JVP neck is supple no facial asymmetry Lungs clear to auscultation good air entry bilaterally Heart sounds unremarkable for any murmur rub gallop Abdomen soft nontender no organomegaly ascites masses nondistended Extremity examination was no edema Neurologically awake alert oriented No focal motor deficit Results - Lab Results Most recent lab results Calcium 9.3 mg/dL (8.7-10.3) 08/02/21 05:23 Magnesium 2.4 mg/dL (1.5-2.4) 08/02/21 05:23 08/02/21 05:23 08/02/21 05:23 Assessment and Plan Assessment: Impression 1. Acute kidney injury secondary to volume depletion from nausea vomiting diarrhea. Rule out rhabdomyolysis. 2. Mild hyperkalemia secondary acute kidney injury. 3. Mild non-gap acidosis from acute kidney injury. 4. Alcohol intake. Patient wants to quit 5. History of seizures in the past nontender recently. 6. Hypomagnesemia secondary to alcohol, resolved Recommendation 1. Continue IV fluids currently on IV normal saline at 75 an hour which should be adequate 2. Check total CK 3. Monitor labs. Thank you for this consultation and will continue to follow
--- NOTE | 2021-08-02 13:47 | P.CN ---
Psychiatric Consult - . Consult date: 08/02/21 Consult:: 08/02/21 13:47 IDENTIFYING DATA: This patient is a single, unemployed, 25-year-old - English male who was admitted for alcohol intoxication/withdrawal. HISTORY OF PRESENT ILLNESS: The patient presented to the hospital on 08/01/2021, on his own volition, because he wants to stop drinking. On admission to the emergency department, the patient reported complaints of shaking and nausea and vomiting. The patient does have a significant history of withdrawal seizures and was subsequently admitted for alcohol withdrawal. Psychiatry has been consulted for evaluation and management of depression and alcohol use disorder. Patient's reported last alcoholic beverage was at 5 PM yesterday. The patient reports that he has been drinking 4-5 beers per day. He sees that this is been ongoing for the past few months. The patient states that he began drinking heavily at the age of 11. He does report a significant history of withdrawal seizures, as well as alcohol hallucinosis. The patient states that over the past 2 weeks she has been feeling increasingly depressed, worthless, and sad. He endorses poor sleep, poor appetite, and anhedonia. He does report passive thoughts of but denies any suicidal ideation, intention, and/or plan. He denies any homicidal ideation, and/or plan. He reports no prior attempts at suicide. EKG in the [facility] Department was noted to have a QTC of 555 ms. The patient reports numerous ongoing stressors that contribute into his alcohol use. He states that he feels like he is not in adequate position in his life and expresses regret for his decisions made previously. He also reports that he is still dealing with the breakup of his previous girlfriend who he reports was the "love of my life." This girlfriend is also the mother of his 5-year-old son. The patient states that the longest he has been sober was for 4 months but this was many years ago. He states that he was sober for 1 month but began to relapse into alcohol use again due to his increased depression and anxiety. The patient states that he has been to rehabilitation once before at [facility] several years ago. He currently goes to [facility]. PAST PSYCHIATRIC HISTORY: Patient reports a history of anxiety and depression. He reports history of alcohol use disorder. He denies any previous inpatient psychiatric hospitalizations. He does not recall any previous psychiatric medications aside from Vivitrol. He reports no prior attempts at suicide. He denies any outpatient services. PAST MEDICAL HISTORY: Past Medical History: No Reported History Additional Past Medical History / Comment(s): Previous seizures alcohol related, alcoholism History of Any Multi-Drug Resistant Organisms: None Reported Past Surgical History: No Surgical Hx Reported Additional Past Surgical History / Comment(s): Pt states he has never had surgery. Past Anesthesia/Blood Transfusion Reactions: No Reported Reaction Additional Past Anesthesia/Blood Transfusion Reaction / Comment(s): Pt has never had surgery Past Psychological History: Anxiety, Depression Smoking Status: Current every day smoker Past Alcohol Use History: Abuse, Daily, Heavy Past Drug Use History: Marijuana ALLERGIES: NO KNOWN DRUG ALLERGIES CHEMICAL DEPENDENCY HISTORY: As per HPI FAMILY PSYCHIATRIC/SUBSTANCE USE HISTORY: The patient portrays father was alcoholic. He denies any knowledge of any family history of mental illness or other substance abuse. SOCIAL HISTORY: Patient was born and raised in [place] in [place]. He is single, never , but has a 5-year-old son. He is currently learning how to [place]. He reports no buddhist affiliation, or legal problems. He denies any history. The patient reports that he smokes a few cigarettes here and there. He denies any marijuana use or drug use. He does endorse daily alcohol use in the form of 4-5 beers per day. MENTAL STATUS EXAM: General Appearance: Patient appears to be stated age is alert, pleasant, and cooperative. Patient appears to have fair hygiene and grooming wearing hospital gown with fair eye contact. Behavior: Patient is calmly lying in bed without any agitated behavior. Psychomotor activity is normal. Speech: Patient's speech is fluent and nonpressured. Mood/Affect: Patient reports their mood is "depressed", affect is congruent and withdrawn Suicidality/Homicidality: Patient denies having any suicidal or homicidal ideation intent or plan. Perceptions: Patient denies any visual hallucinations and denies any auditory hallucinations Though content/process: There is no evidence of any delusional thought content and thought process is linear and goal-directed. Memory and concentration: AOX3, grossly intact for the purposes of this session. Can spell "WORLD" backwards Judgment and insight: Fair Vital Signs Temp 98.4 F 08/02/21 12:08 Pulse 70 08/02/21 12:08 Resp 18 08/02/21 12:08 BP 122/80 08/02/21 12:08 Pulse Ox 100 08/02/21 12:08 Intake & Output 08/01/21 08/02/21 08/02/21 18:59 06:59 18:59 Intake Total 2059 540 Balance 2059 540 Weight 54.431 kg Intake: Intake, IV Titration 1200 Amount Magnesium Sulfate-D5w Pmx 200 1 gm In Dextrose/Water 1 100ml.bag @ 100 mls/hr IVPB Q1H [facility] Rx#: [id number] Sodium Chloride 0.9% 1, 1000 000 ml @ 250 mls/hr IV . Q4H3M ONE with Mvi, Adult No.4 with Vit K 10 ml with Thiamine 100 mg with Folic Acid 1 mg Rx#: [id number] Oral 860 540 Other: Voiding Method Toilet Toilet Toilet # Voids 3 2 Laboratory Results - Last 24 Hours 08/02/21 08/02/21 08/02/21 05:23 05:23 05:47 WBC 12.9 H RBC 3.88 L Hgb 13.1 Hct 39.5 MCV 101.6 H MCH 33.8 MCHC 33.3 RDW 13.5 Plt Count 272 MPV 6.9 Neutrophils % 81 Lymphocytes % 13 Monocytes % 5 Eosinophils % 1 Basophils % 0 Neutrophils # 10.4 H Lymphocytes # 1.6 Monocytes # 0.6 Eosinophils # 0.1 Basophils # 0.1 Macrocytosis Slight Sodium 134 L Potassium 3.9 Chloride 97 Carbon Dioxide 28.2 Anion Gap 8.80 BUN 20.0 Creatinine 1.6 H Est GFR (CKD-EPI)AfAm 67.4 Est GFR (CKD-EPI)NonAf 58.2 L BUN/Creatinine Ratio 12.50 Glucose 61 L Calcium 9.3 Magnesium 2.4 Urine Color Light Yellow Urine Appearance Clear Urine pH 5.5 Ur Specific [place] 1.012 Urine Protein Negative Urine Glucose (UA) Negative Urine Ketones Negative Urine Blood Negative Urine Nitrite Negative Urine Bilirubin Negative Urine Urobilinogen <2.0 Ur Leukocyte Esterase Negative IMPRESSIONS: Alcohol use disorder Acute alcohol withdrawal 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 The patient is future oriented, with no previous history of suicide attempts, and is actively seeking treatment for his alcohol use disorder. -Would recommend the following medication changes/additions: We will hold medications at this time as the patient has an elevated QTC of 555 ms. We will reorder EKG and re-evaluate tomorrow whether the patient is a good candidate for antidepressants. Consider reintroduction of naltrexone for alcohol use disorder -Will continue to follow along
--- NOTE | 2021-08-02 21:28 | P.DS ---
Providers Date of admission: 08/01/21 10:32 Attending physician: Nick Victoria Consults: 08/02/21 07:05 Consult Physician Urgent Consulting Provider: Kevin Mendoza Consult Reason/Comments: depression and alcoholism Do you want consulting provider notified?: Yes 08/02/21 11:33 Consult Physician Urgent Consulting Provider: Luis Thompson Consult Reason/Comments: era Do you want consulting provider notified?: Yes Primary care physician: Rosales Maurer Hospital Course: Please note patient was not discharged but he left AMA Diagnoses: Alcohol intoxication and risk of local withdrawal. Hyponatremia Acute kidney injury Dehydration secondary to acute gastroenteritis Depression with no suicidal ideation Prolonged QT interval Hospital course: This is a pleasant 25 -[place] male who presents with nausea and signs and symptoms of alcohol withdrawal. He normally has 4-5 drinks per day. Also has been having diarrhea with minimal abdominal discomfort or pain with no significant tenderness, no nausea vomiting. On admission he was started on CIWA treatment protocol with as needed Ativan and a hysterectomy He has mild leukocytosis most likely secondary to his acute gastroenteritis with WBC of 12.9. Creatinine was mildly elevated at 1.7 and 1.6. Sodium is moderately low at 134 He was treated with normal saline today, ordered a KUB and nail machine operator evaluated the patient Contrast evaluated the patient found him does not meet inpatient psych criteria need to go to mental health unit, para amended to check to 50 mL prior to started antidepressant for him however patient left AMA before I have chance to talk to him. Risks and benefits are explained to him by staff Upon my evaluation earlier today patient was fully awake and oriented, fully yumiko ropriate. He was aware to the surrounding and to his diagnosis and illness. Based upon my evaluation patient has capacity to make medical decision. Patient left AMA ureter on today, please refer to nurse note for more details Physical exam. Prior to leaving AMA Gen: patient is a AAOx3, no distress CVS: S1-S2, RRR, no murmur Lungs: B/L CTA, no wheezing Abdomen: soft, no distention, no tenderness, positive bowel sounds Extremity: no leg edema or induration psychiatrist: Mild depression, his CIWA score was 1-2 only Time spent more than 35 minutes Patient Condition at Discharge: Fair Plan - Discharge Summary Discharge Rx Participant: No New Discharge Prescriptions: No Action No Known Home Medications Discharge Medication List No Known Home Medications 08/01/21 [History] Follow up Appointment(s)/Referral(s): Rosales Maurer MD [Primary Care Provider] - 1-2 days Discharge Disposition: Left Against Medical Advice
== END 2021-08-02 18:00 | disposition left against medical advice (07) | DRG 894 ==
LOC: EC 08:59 → 5NMEDONC 10:32
PROVIDERS: ADMIT Internal Medicine; ATTEND Internal Medicine
DX: F10.239 Alcohol dependence with withdrawal, unspecified (principal); E87.1 Hypo-osmolality and hyponatremia; E87.2 Acidosis; N17.9 Acute kidney failure, unspecified; F17.200 Nicotine dependence, unspecified, uncomplicated; E83.42 Hypomagnesemia; E86.0 Dehydration; E87.5 Hyperkalemia; F32.9 Major depressive disorder, single episode, unspecified; F41.9 Anxiety disorder, unspecified; K52.9 Noninfective gastroenteritis and colitis, unspecified
CPT/HCPCS: 36415; 71046; 74018; 80048; 80053; 80320; 81003; 82550; 83735; 85025; 93005; 96361; 96374; 96375; 99285

== ENCOUNTER 2021-08-21 10:15 | Emergency (ER) | payer OTHER ==
[2021-08-21 10:32] VITALS: BP 136/84; PULSE 80; RESP 18; TEMP 98
[2021-08-21] MEDS ORDERED: SODIUM CHLORIDE 0.9% 500 ML 500 ML IV STA (10:43)
[2021-08-21] MEDS ORDERED: SODIUM CHLORIDE 0.9% 1,000 ML IV STA (10:43)
[2021-08-21] MEDS ORDERED: ONDANSETRON 4 MG/2 ML VIAL IVP STA (11:40)
[2021-08-21] MEDS ORDERED: DIAZEPAM 5 MG/ML 2 ML INJ IVP STA (11:40)
[2021-08-21 11:43] LABS: Basophils % (A) 0 %; Eosinophils # (A) 0.3 k/uL (0-0.7); Eosinophils % (A) 3 %; HCT 35.8 % (39.0-53.0); HGB 12.7 gm/dL (13.0-17.5); Lymphocytes # (A) 0.9 k/uL (1.0-4.8); Lymphocytes % (A) 9 %; MCH 34.8 pg (25.0-35.0); MCHC 35.5 g/dL (31.0-37.0); MCV 97.9 fL (80.0-100.0); Mean Platelet Volume 10.5; Monocytes # (A) 0.4 k/uL (0-1.0); Monocytes % (A) 4 %; Neutrophils # (A) 8.1 k/uL (1.3-7.7); Neutrophils % (A) 82 %; Platelet Count 179 k/uL (150-450); RBC 3.66 m/uL (4.30-5.90); RDW 13.5 % (11.5-15.5); WBC 9.8 k/uL (3.8-10.6)
[2021-08-21 11:49] LABS: ALT 11 U/L (4-49); AST 50 U/L (17-59); African American GFR (CKD) >90 (>60 ml/min/1.73 sqM); Albumin 4.8 g/dL (3.5-5.0); Alcohol <10 mg/dL; Alkaline Phosphatase 105 U/L (38-126); Anion Gap 16 mmol/L; Blood Urea Nitrogen 6 mg/dL (9-20); Calcium 9.9 mg/dL (8.4-10.2); Carbon Dioxide 23 mmol/L (22-30); Chloride 96 mmol/L (98-107); Glucose 72 mg/dL (74-99); Lipase 26 U/L (23-300); Magnesium 1.2 mg/dL (1.6-2.3); Non-African American GFR(CKD) >90 (>60 ml/min/1.73 sqM); Sodium 135 mmol/L (137-145); Total Bilirubin 1.2 mg/dL (0.2-1.3); Total Protein 8.9 g/dL (6.3-8.2)
[2021-08-21 12:06] LABS: Potassium 4.8 mmol/L (3.5-5.1)
[2021-08-21] MEDS ORDERED: MAGNESIUM OXIDE 400 MG TAB PO STA (12:23)
--- NOTE | 2021-08-21 12:28 | ED ---
Alcohol HPI - General Chief Complaint: Alcohol Stated Complaint: Alcohol Withdrawal Time Seen by Provider: 08/21/21 10:43 Source: patient, RN notes reviewed Mode of arrival: ambulatory Limitations: no limitations - History of Present Illness Initial Comments: This is a 25-year-old male presents emergency Department chief complaint of alcohol abuse. Patient states is a chronic alcoholic states he only drinks 4-5 beers daily. Patient had a recent admission this month for similar complaints. He denies any severe withdrawal symptoms. Patient states he just more nauseated denies any abdominal pain no history of recent pancreatitis or hepatitis. De nies any significant drug abuse - Related Data Previous Rx's Medication Instructions Recorded Ondansetron Odt [Zofran Odt] 4 mg PO Q8HR PRN #10 tab 08/21/21 Allergies Allergy/AdvReac Type Severity Reaction Status Date / Time No Known Allergies Allergy Verified 08/21/21 10:28 Review of Systems ROS Statement: Those systems with pertinent positive or pertinent negative responses have been documented in the HPI. ROS Other: All systems not noted in ROS Statement are negative. Past Medical History Past Medical History: No Reported History Additional Past Medical History / Comment(s): Previous seizures alcohol related, alcoholism History of Any Multi-Drug Resistant Organisms: None Reported Past Surgical History: No Surgical Hx Reported Additional Past Surgical History / Comment(s): Pt states he has never had surgery. Past Anesthesia/Blood Transfusion Reactions: No Reported Reaction Additional Past Anesthesia/Blood Transfusion Reaction / Comment(s): Pt has never had surgery Past Psychological History: Anxiety, Depression Smoking Status: Former smoker Past Alcohol Use History: Abuse, Daily, Heavy Past Drug Use History: Marijuana - Past Family History Mother Family Medical History: No Reported History Additional Family Medical History / Comment(s): Mother is healthy Father Family Medical History: No Reported History Additional Family Medical History / Comment(s): Father is is an alcoholic General Exam Limitations: no limitations General appearance: alert, in no apparent distress Head exam: Present: atraumatic, normocephalic, normal inspection Eye exam: Present: normal appearance, PERRL, EOMI. Absent: scleral icterus, conjunctival injection, periorbital swelling ENT exam: Present: normal exam, normal oropharynx, mucous membranes moist Neck exam: Present: normal inspection, full ROM. Absent: tenderness, meningismus, lymphadenopathy Respiratory exam: Present: normal lung sounds bilaterally. Absent: respiratory distress, wheezes, rales, rhonchi, stridor Cardiovascular Exam: Present: regular rate, normal rhythm, normal heart sounds. Absent: systolic murmur, diastolic murmur, rubs, gallop, clicks GI/Abdominal exam: Present: soft, normal bowel sounds. Absent: distended, tenderness, guarding, rebound, rigid Neurological exam: Present: alert, oriented X3, CN II-XII intact Skin exam: Present: warm, dry, intact, normal color. Absent: rash Course Vital Signs 08/21/21 10:29 Temperature 98 F Pulse Rate 80 Respiratory 18 Rate Blood Pressure 136/84 O2 Sat by Pulse 99 Oximetry Medical Decision Making - Medical Decision Making Patient has mild hypomagnesemia. Patient was hydrated, able tolerate oral intake. Patient we discharged stable condition. - Lab Data Result diagrams: 08/21/21 10:57 08/21/21 10:57 Lab Results 08/21/21 08/21/21 Range/Units 10:57 10:57 WBC 9.8 (3.8-10.6) k/uL RBC 3.66 L (4.30-5.90) m/uL Hgb 12.7 L (13.0-17.5) gm/dL Hct 35.8 L (39.0-53.0) % MCV 97.9 (80.0-100.0) fL MCH 34.8 (25.0-35.0) pg MCHC 35.5 (31.0-37.0) g/dL RDW 13.5 (11.5-15.5) % Plt Count 179 (150-450) k/uL MPV 10.5 Neutrophils % 82 % Lymphocytes % 9 % Monocytes % 4 % Eosinophils % 3 % Basophils % 0 % Neutrophils # 8.1 H (1.3-7.7) k/uL Lymphocytes # 0.9 L (1.0-4.8) k/uL Monocytes # 0.4 (0-1.0) k/uL Eosinophils # 0.3 (0-0.7) k/uL Basophils # 0.0 (0-0.2) k/uL Sodium 135 L (137-145) mmol/L Potassium 4.8 (3.5-5.1) mmol/L Chloride 96 L (98-107) mmol/L Carbon Dioxide 23 (22-30) mmol/L Anion Gap 16 mmol/L BUN 6 L (9-20) mg/dL Creatinine 0.66 (0.66-1.25) mg/dL Est GFR (CKD-EPI)AfAm >90 (>60 ml/min/1.73 sqM) Est GFR (CKD-EPI)NonAf >90 (>60 ml/min/1.73 sqM) Glucose 72 L (74-99) mg/dL Calcium 9.9 (8.4-10.2) mg/dL Magnesium 1.2 L (1.6-2.3) mg/dL Total Bilirubin 1.2 (0.2-1.3) mg/dL AST 50 (17-59) U/L ALT 11 (4-49) U/L Alkaline Phosphatase 105 (38-126) U/L Total Protein 8.9 H (6.3-8.2) g/dL Albumin 4.8 (3.5-5.0) g/dL Lipase 26 (23-300) U/L Serum Alcohol <10 mg/dL Disposition Clinical Impression: Alcohol abuse, Hypomagnesemia Disposition: HOME SELF-CARE Condition: Stable Instructions (If sedation given, give patient instructions): Alcohol Withdrawal (ED) Additional Instructions: Please return to the Emergency Department if symptoms worsen or any other concerns. Prescriptions: Ondansetron Odt [Zofran Odt] 4 mg PO Q8HR PRN #10 tab PRN Reason: Nausea Is patient prescribed a controlled substance at d/c from ED?: No Referrals: Rosales Maurer MD [Primary Care Provider] - 1-2 days Time of Disposition: 12:31
[2021-08-21 13:03] LABS: Glucose,Whole Blood 108 mg/dL (75-99)
== END 2021-08-21 13:31 | disposition home or self-care (01) ==
LOC: EC 10:15
DX: E83.42 Hypomagnesemia (principal); F10.10 Alcohol abuse, uncomplicated; Z87.891 Personal history of nicotine dependence
CPT/HCPCS: 36415; 80053; 83690; 83735; 85025; 96374; 96375; 96361; 99284; G0480; J3360; J2405; 80320

== ENCOUNTER → 2021-08-30 | Outpatient (CLI) | payer OTHER ==
[2021-08-30 15:20] LABS: Basophils % (A) 1.4 %; Eosinophils # (A) 0.18 X 10*3/uL (0.04-0.35); Eosinophils % (A) 2.5 %; HCT 35.7 % (39.6-50.0); HGB 11.4 g/dL (13.0-17.0); Lymphocytes # (A) 1.67 X 10*3/uL (0.90-5.00); Lymphocytes % (A) 22.9 %; MCH 32.8 pg (27.0-32.0); MCHC 31.9 g/dL (32.0-37.0); MCV 102.6 fL (80.0-97.0); Mean Platelet Volume 9.8 fL (9.5-12.2); Monocytes # (A) 1.48 X 10*3/uL (0.20-1.00); Monocytes % (A) 20.3 %; Neutrophils # (A) 3.74 X 10*3/uL (1.80-7.70); Neutrophils % (A) 51.1 %; Platelet Count 348 X 10*3/uL (140-440); RBC 3.48 X 10*6/uL (4.40-5.60); RDW 12.9 % (11.5-14.5)
[2021-08-30 16:28] LABS: ALT 6 U/L (10-49); AST 15 U/L (14-35); African American GFR (CKD) 150.3 (60.0-200.0); Albumin 4.3 g/dL (3.8-4.9); Albumin/Globulin Ratio 1.58 (1.60-3.17); Alkaline Phosphatase 75 U/L (41-126); BUN/Creat Ratio 14.68 Ratio (12.00-20.00); Blood Urea Nitrogen 10.2 mg/dL (9.0-27.0); Calcium 9.6 mg/dL (8.7-10.3); Carbon Dioxide 26.7 mmol/L (21.6-31.8); Chloride 99 mmol/L (96-109); Chol/HDL Ratio 3.65 Ratio; Globulin 2.7 g/dL (1.6-3.3); Glucose 89 mg/dL (70-110); LDL Cholesterol,Calculated 118.7 mg/dL (0.0-131.0); Non-African American GFR(CKD) 129.7 (60.0-200.0); Potassium 3.3 mmol/L (3.5-5.5); Sodium 137 mmol/L (135-145); Total Bilirubin <0.20 mg/dL (0.30-1.20)
== END | disposition home or self-care (01) ==
LOC: LABWHC1 09:21
PROVIDERS: ATTEND Family Medicine
DX: Z00.00 Encounter for general adult medical examination without abnormal findings (principal); Z13.220 Encounter for screening for lipoid disorders; E55.9 Vitamin D deficiency, unspecified; E78.5 Hyperlipidemia, unspecified; R53.83 Other fatigue
CPT/HCPCS: 36415; 80053; 80061; 82306; 84439; 84443; 85025

== ENCOUNTER 2021-10-09 11:58 | Inpatient (IN) | payer OTHER ==
[2021-10-09] MEDS ORDERED: LORazepam 2 MG/ML INJ IV STA (13:28)
[2021-10-09] MEDS ORDERED: SODIUM CHLORIDE 0.9% 500 ML 500 ML IV STA (13:28)
[2021-10-09] MEDS ORDERED: SODIUM CHLORIDE 0.9% 1,000 ML IV STA (13:28)
[2021-10-09] MEDS ORDERED: ONDANSETRON 4 MG/2 ML VIAL IVP STA (13:31)
[2021-10-09] MEDS ORDERED: ACETAMINOPHEN TAB 500 MG TAB PO STA (13:31)
--- NOTE | 2021-10-09 13:33 | ED ---
General Adult HPI - General Chief complaint: Alcohol Stated complaint: ETOH Time Seen by Provider: 10/09/21 12:20 Source: patient, family, RN notes reviewed, old records reviewed Mode of arrival: ambulatory Limitations: no limitations - History of Present Illness Initial comments: This is a 25-year-old male who presents emergency department stating that he drinks daily and he hasn't drank since chest and he is withdrawing. Patient states he is very nauseated and has been vomiting all morning. Patient states she's also little shaky. Patient denies any difficulty breathing or chest pain. Patient denies any abdominal pain. Patient denies any fever chills or cough. Patient denies drug use. - Related Data Home Medications Medication Instructions Recorded Confirmed No Known Home Medications 10/09/21 10/09/21 Allergies Allergy/AdvReac Type Severity Reaction Status Date / Time No Known Allergies Allergy Verified 10/09/21 14:33 Review of Systems ROS Statement: Those systems with pertinent positive or pertinent negative responses have been documented in the HPI. ROS Other: All systems not noted in ROS Statement are negative. Past Medical History Past Medical History: No Reported History Additional Past Medical History / Comment(s): Previous seizures alcohol related, alcoholism History of Any Multi-Drug Resistant Organisms: None Reported Past Surgical History: No Surgical Hx Reported Additional Past Surgical History / Comment(s): Pt states he has never had surgery. Past Anesthesia/Blood Transfusion Reactions: No Reported Reaction Additional Past Anesthesia/Blood Transfusion Reaction / Comment(s): Pt has never had surgery Past Psychological History: Anxiety, Depression Smoking Status: Former smoker Past Alcohol Use History: Abuse, Daily, Heavy Past Drug Use History: Marijuana - Past Family History Mother Family Medical History: No Reported History Additional Family Medical History / Comment(s): Mother is healthy Father Family Medical History: No Reported History Additional Family Medical History / Comment(s): Father is is an alcoholic General Exam - General Exam Comments Initial Comments: GENERAL: Patient is well-developed and well-nourished. Patient is nontoxic and well- hydrated and is in mild distress. ENT: Neck is soft and supple. No significant lymphadenopathy is noted. Oropharynx is clear. Moist mucous membranes. Neck has full range of motion without eliciting any pain. EYES: The sclera were anicteric and conjunctiva were pink and moist. Extraocular movements were intact and pupils were equal round and reactive to light. Eyelids were unremarkable. PULMONARY: Unlabored respirations. Good breath sounds bilaterally. No audible rales rhonchi or wheezing was noted. CARDIOVASCULAR: There is a regular rate and rhythm without any murmurs gallops or rubs. ABDOMEN: Soft and nontender with normal bowel sounds. SKIN: Skin is clear with no lesions or rashes and otherwise unremarkable. NEUROLOGIC: Patient is alert and oriented x3. Cranial nerves II through XII are grossly intact. Motor and sensory are also intact. Normal speech, volume and content. Symmetrical smile. MUSCULOSKELETAL: Normal extremities with adequate strength and full range of motion. LYMPHATICS: No significant lymphadenopathy is noted PSYCHIATRIC: Normal psychiatric evaluation. Limitations: no limitations Course Vital Signs 10/09/21 12:18 Temperature 97.4 F L Pulse Rate 75 Respiratory 19 Rate Blood Pressure 113/69 O2 Sat by Pulse 100 Oximetry Medical Decision Making - Medical Decision Making Patient received a liter and half normal saline. Patient also received Zofran Ativan. I went back into reevaluate the patient he continued to be nauseated. Patient's sugar was 72 on the blood work he was given something to eat. I spoke with Dr. Moss and he agreed to admit the patient admitted the patient put the patient on [facility] protocol. - Lab Data Result diagrams: 10/09/21 14:00 10/09/21 14:00 Lab Results 10/09/21 10/09/21 Range/Units 14:00 14:00 WBC 8.0 (3.8-10.6) k/uL RBC 3.76 L (4.30-5.90) m/uL Hgb 12.5 L (13.0-17.5) gm/dL Hct 37.5 L (39.0-53.0) % MCV 99.6 (80.0-100.0) fL MCH 33.1 (25.0-35.0) pg MCHC 33.3 (31.0-37.0) g/dL RDW 14.9 (11.5-15.5) % Plt Count 147 L (150-450) k/uL MPV 8.9 Neutrophils % 84 % Lymphocytes % 9 % Monocytes % 4 % Eosinophils % 2 % Basophils % 0 % Neutrophils # 6.7 (1.3-7.7) k/uL Lymphocytes # 0.7 L (1.0-4.8) k/uL Monocytes # 0.3 (0-1.0) k/uL Eosinophils # 0.1 (0-0.7) k/uL Basophils # 0.0 (0-0.2) k/uL Macrocytosis Slight Sodium 134 L (137-145) mmol/L Potassium 4.5 (3.5-5.1) mmol/L Chloride 95 L (98-107) mmol/L Carbon Dioxide 19 L (22-30) mmol/L Anion Gap 20 mmol/L BUN 7 L (9-20) mg/dL Creatinine 0.59 L (0.66-1.25) mg/dL Est GFR (CKD-EPI)AfAm >90 (>60 ml/min/1.73 sqM) Est GFR (CKD-EPI)NonAf >90 (>60 ml/min/1.73 sqM) Glucose 72 L (74-99) mg/dL Calcium 10.6 H (8.4-10.2) mg/dL Magnesium 1.6 (1.6-2.3) mg/dL Total Bilirubin 1.4 H (0.2-1.3) mg/dL AST 123 H (17-59) U/L ALT 66 H (4-49) U/L Alkaline Phosphatase 89 (38-126) U/L Total Protein 8.7 H (6.3-8.2) g/dL Albumin 5.2 H (3.5-5.0) g/dL Disposition Clinical Impression: Alcohol withdrawal, Alcoholic ketoacidosis, Hypoglycemia Disposition: ADMITTED IP TO THIS HOSP Referrals: Rosales Maurer MD [Primary Care Provider] - 1-2 days Time of Disposition: 14:45
[2021-10-09 14:17] LABS: Basophils % (A) 0 %; Eosinophils # (A) 0.1 k/uL (0-0.7); Eosinophils % (A) 2 %; HCT 37.5 % (39.0-53.0); HGB 12.5 gm/dL (13.0-17.5); Lymphocytes # (A) 0.7 k/uL (1.0-4.8); Lymphocytes % (A) 9 %; MCH 33.1 pg (25.0-35.0); MCHC 33.3 g/dL (31.0-37.0); MCV 99.6 fL (80.0-100.0); Macrocytosis Slight; Mean Platelet Volume 8.9; Monocytes # (A) 0.3 k/uL (0-1.0); Monocytes % (A) 4 %; Neutrophils # (A) 6.7 k/uL (1.3-7.7); Neutrophils % (A) 84 %; Platelet Count 147 k/uL (150-450); RBC 3.76 m/uL (4.30-5.90); RDW 14.9 % (11.5-15.5)
[2021-10-09 14:33] LABS: ALT 66 U/L (4-49); AST 123 U/L (17-59); African American GFR (CKD) >90 (>60 ml/min/1.73 sqM); Albumin 5.2 g/dL (3.5-5.0); Alkaline Phosphatase 89 U/L (38-126); Anion Gap 20 mmol/L; Blood Urea Nitrogen 7 mg/dL (9-20); Calcium 10.6 mg/dL (8.4-10.2); Carbon Dioxide 19 mmol/L (22-30); Chloride 95 mmol/L (98-107); Glucose 72 mg/dL (74-99); Magnesium 1.6 mg/dL (1.6-2.3); Non-African American GFR(CKD) >90 (>60 ml/min/1.73 sqM); Potassium 4.5 mmol/L (3.5-5.1); Sodium 134 mmol/L (137-145); Total Bilirubin 1.4 mg/dL (0.2-1.3); Total Protein 8.7 g/dL (6.3-8.2)
[2021-10-09 14:46] LABS: Glucose,Whole Blood 60 mg/dL (75-99)
[2021-10-09] MEDS ORDERED: THIAMINE 100 MG/ML 2 ML VIAL IM STA (14:46)
[2021-10-09] MEDS ORDERED: LORazepam 2 MG/ML INJ IV PRN ×2 (14:46)
[2021-10-09] MEDS ORDERED: ONDANSETRON 4 MG/2 ML VIAL IVP PRN ×2 (14:47)
[2021-10-09] MEDS: DEXTROSE 5%-0.45% NACL 1,000 ML IV SCH (15:49)
[2021-10-09] MEDS: THIAMINE 100 MG TAB PO SCH (21:27)
[2021-10-09] MEDS: LORazepam 2 MG/ML INJ IV PRN (22:55)
[2021-10-10] MEDS: THIAMINE 100 MG TAB PO SCH ×2 (09:27→16:19)
[2021-10-10] MEDS: LORazepam 2 MG/ML INJ IV PRN ×2 (11:05→16:28)
[2021-10-10] MEDS: DEXTROSE 5%-0.45% NACL 1,000 ML IV SCH (11:25)
--- NOTE | 2021-10-10 12:42 | HP ---
HISTORY AND PHYSICAL CHIEF COMPLAINT: Acute alcohol intoxication, DTs and depression. HISTORY OF PRESENT ILLNESS: This is another admission for this 25-year-old -[place] male. He struggles mightily with his alcoholism and has been admitted to the hospital numerous times in the past for withdrawal. He came into the emergency room intoxicated and going into DTs with nausea, vomiting and diarrhea with tremors. REVIEW OF SYSTEMS: At the present time he denies diplopia, tremors, seizures, chest pain, shortness of breath, abdominal pain, etc. Past medical history, family history, and personal and social histories are all otherwise unremarkable and are unchanged. He is not currently taking any medication. He has been employed, but is not any longer. PHYSICAL EXAMINATION: Blood pressure is 142/85 with a pulse of 88, respirations of 35, and he is afebrile. In general he appeared to be well developed, slightly dehydrated, awake and alert and in no acute distress. Head, ears, eyes, nose, mouth and throat were normal. The chest is clear. Cardiac exam is normal sinus rhythm and the abdomen is soft and nontender without any visceromegaly or masses. Bowel sounds are present. Extremities are normal. Neurologically he is intact. He is admitted to the hospital with diagnoses: 1. Chronic alcoholism. 2. Delirium tremens. 3. Dehydration. 4. Intractable nausea, vomiting, diarrhea. PLAN: 1. Bedrest. 2. IV fluids. 3. Control nausea and diarrhea. 4. CIWA protocol. ROSELYN / TATIANA: [id number] /
--- NOTE | 2021-10-10 12:42 | PN ---
PROGRESS NOTE DATE OF SERVICE: 10/10/2021 CHIEF COMPLAINT: DTs. HISTORY OF PRESENT ILLNESS: This gentleman seems to be fairly stable. At present time he is not tremulous. Nausea and vomiting have stopped. PHYSICAL EXAMINATION: Vital signs are normal. Chest is clear. Cardiac exam is normal. Abdomen is soft and nontender. IMPRESSION: 1. Delirium tremens. 2. Chronic alcoholism. PLAN: Continue with CIWA protocol and antiemetics. MMODL / IJN: [id number] /
[2021-10-11] MEDS: DEXTROSE 5%-0.45% NACL 1,000 ML IV SCH ×3 (02:09→17:34)
[2021-10-11 07:26] LABS: Glucose,Whole Blood 117 mg/dL (75-99)
[2021-10-11] MEDS: LORazepam 2 MG/ML INJ IV PRN (08:09)
[2021-10-11] MEDS: THIAMINE 100 MG TAB PO SCH ×2 (08:09→17:33)
[2021-10-11 20:59] VITALS: RESP 18
--- NOTE | 2021-10-11 21:12 | PN ---
PROGRESS NOTE DATE OF SERVICE: 10/11/2021 CHIEF COMPLAINT: DTs. HISTORY OF PRESENT ILLNESS: This gentleman is still slightly tremulous and quite anxious. He has not gone into florid DTs. PHYSICAL EXAMINATION: His vital signs are normal. Chest is clear. Cardiac exam is normal. Abdomen is soft, nontender. IMPRESSION: 1. Delirium tremens. 2. Chronic alcoholism. PLAN: Continue with the [facility] protocol. MMODL / IJN: [id number] /
[2021-10-12 05:39] VITALS: BP 123/84; PULSE 80; TEMP 98.2
[2021-10-12] MEDS: DEXTROSE 5%-0.45% NACL 1,000 ML IV SCH (05:43)
[2021-10-12] MEDS: THIAMINE 100 MG TAB PO SCH (08:24)
[2021-10-12] MEDS ORDERED: DIVALPROEX 500 MG TABLET.DR PO SCH (21:00)
--- NOTE | 2021-10-12 22:39 | DS ---
DISCHARGE SUMMARY CHIEF COMPLAINT: DTs. HISTORY OF PRESENT ILLNESS AND PHYSICAL EXAMINATION: Details of this man's history and physical can be found in the initial workup. LABORATORY STUDIES: While he was in the hospital he had laboratory studies, details of which can be found in the laboratory section of his chart. COURSE IN THE HOSPITAL: After admission, he was placed on bedrest and started on intravenous fluids and placed on CIWA protocol. Two or three days later he is doing much better and he is up and about without any evidence of DTs. He will be discharged home on regular diet and activity and be seen in the office in several days. He requested to be placed back on Depakote. He will be given 500 mg twice a day. FINAL DIAGNOSES: 1. Delirium tremens. 2. Chronic alcoholism. OPERATIONS: None. CONSULTATIONS: None. He is improved. ROSELYN / TATIANA: [id number] /
== END 2021-10-12 13:42 | disposition home or self-care (01) | DRG 897 ==
LOC: EC 11:58 → 5NMEDONC 14:48
PROVIDERS: ADMIT Family Medicine; ATTEND Family Medicine
DX: F10.231 Alcohol dependence with withdrawal delirium (principal); E16.2 Hypoglycemia, unspecified; F10.229 Alcohol dependence with intoxication, unspecified; F32.A Depression, unspecified; Z87.891 Personal history of nicotine dependence; E86.0 Dehydration; R19.7 Diarrhea, unspecified; Z20.822 Contact with and (suspected) exposure to COVID-19
CPT/HCPCS: 36415; 80053; 82075; 83735; 85025; 87635; 96361; 96374; 96375; 99284

== ENCOUNTER 2022-09-11 09:26 | Emergency (ER) | payer OTHER ==
[2022-09-11 09:45] VITALS: BP 113/71; PULSE 89; RESP 18; TEMP 98.2
[2022-09-11] MEDS ORDERED: SODIUM CHLORIDE 0.9% 1,000 ML IV STA (10:13)
[2022-09-11] MEDS ORDERED: FAMOTIDINE 20 MG/2 ML VIAL IV STA (10:13)
[2022-09-11] MEDS ORDERED: THIAMINE 100 MG/ML 2 ML VIAL IM STA (10:13)
[2022-09-11] MEDS ORDERED: ONDANSETRON 4 MG/2 ML VIAL IVP STA (10:13)
--- NOTE | 2022-09-11 10:15 | ED ---
General Adult HPI - General Chief complaint: Alcohol Stated complaint: alcohol detox Time Seen by Provider: 09/11/22 09:29 Source: patient, family, RN notes reviewed Mode of arrival: ambulatory Limitations: no limitations - History of Present Illness Initial comments: Patient is a pleasant 26-year-old male presenting to the emergency department with concerns for problems detoxing from alcohol. Patient has been drinking heavily the past week. Patient tried to back off the last couple of days. Patient has been shaky and did vomit several times. Patient admits to having some beer this morning. Patient normally is drinking beer. - Related Data Previous Rx's Medication Instructions Recorded Divalproex [Depakote] 500 mg PO BID #20 tablet 10/12/21 Thiamine [Vitamin B-1] 100 mg PO BID-W/MEALS #120 tab 10/12/21 Allergies Allergy/AdvReac Type Severity Reaction Status Date / Time No Known Allergies Allergy Verified 09/11/22 09:45 Review of Systems ROS Statement: Those systems with pertinent positive or pertinent negative responses have been documented in the HPI. ROS Other: All systems not noted in ROS Statement are negative. Constitutional: Denies: fever Eyes: Denies: eye pain ENT: Denies: ear pain Respiratory: Denies: cough Cardiovascular: Denies: chest pain Endocrine: Denies: fatigue Gastrointestinal: Reports: nausea, vomiting. Denies: abdominal pain Genitourinary: Denies: dysuria Musculoskeletal: Denies: back pain Skin: Denies: rash Neurological: Denies: weakness Psychiatric: Reports: anxiety Past Medical History Past Medical History: No Reported History Additional Past Medical History / Comment(s): Previous seizures alcohol related, alcoholism History of Any Multi-Drug Resistant Organisms: None Reported Past Surgical History: No Surgical Hx Reported Additional Past Surgical History / Comment(s): Pt states he has never had surge ry. Past Anesthesia/Blood Transfusion Reactions: No Reported Reaction Additional Past Anesthesia/Blood Transfusion Reaction / Comment(s): Pt has never had surgery Past Psychological History: Anxiety, Depression Smoking Status: Former smoker Past Alcohol Use History: Abuse, Daily, Heavy Past Drug Use History: Marijuana - Past Family History Mother Family Medical History: No Reported History Additional Family Medical History / Comment(s): Mother is healthy Father Family Medical History: No Reported History Additional Family Medical History / Comment(s): Father is is an alcoholic General Exam Limitations: no limitations General appearance: alert, in no apparent distress Head exam: Present: normocephalic Eye exam: Present: normal appearance Neck exam: Present: normal inspection Respiratory exam: Present: normal lung sounds bilaterally Cardiovascular Exam: Present: regular rate, normal rhythm GI/Abdominal exam: Present: soft. Absent: tenderness Extremities exam: Present: normal inspection Neurological exam: Present: alert Psychiatric exam: Present: normal affect, normal mood Skin exam: Present: normal color Course Vital Signs 09/11/22 09:40 Temperature 98.2 F Pulse Rate 89 Respiratory 18 Rate Blood Pressure 113/71 O2 Sat by Pulse 100 Oximetry Medical Decision Making - Medical Decision Making Patient reevaluated and feeling better with fluids and antiemetic. Patient updated on results. ciwa 7. Patient is comfortable with discharge home and we'll attempt detox at home. Patient will be given one Ativan for home. - Lab Data Result diagrams: 09/11/22 10:34 09/11/22 10:34 Lab Results 09/11/22 09/11/22 Range/Units 10:34 10:34 WBC 9.8 (3.8-10.6) k/uL RBC 4.52 (4.30-5.90) m/uL Hgb 13.6 (13.0-17.5) gm/dL Hct 41.7 (39.0-53.0) % MCV 92.2 (80.0-100.0) fL MCH 30.2 (25.0-35.0) pg MCHC 32.7 (31.0-37.0) g/dL RDW 14.3 (11.5-15.5) % Plt Count 248 (150-450) k/uL MPV 7.7 Neutrophils % 76 % Lymphocytes % 19 % Monocytes % 2 % Eosinophils % 1 % Basophils % 1 % Neutrophils # 7.4 (1.3-7.7) k/uL Lymphocytes # 1.9 (1.0-4.8) k/uL Monocytes # 0.2 (0-1.0) k/uL Eosinophils # 0.1 (0-0.7) k/uL Basophils # 0.1 (0-0.2) k/uL Sodium 130 L (137-145) mmol/L Potassium 4.8 (3.5-5.1) mmol/L Chloride 88 L (98-107) mmol/L Carbon Dioxide 19 L (22-30) mmol/L Anion Gap 23 mmol/L BUN 9 (9-20) mg/dL Creatinine 0.78 (0.66-1.25) mg/dL Est GFR (CKD-EPI)AfAm >90 (>60 ml/min/1.73 sqM) Est GFR (CKD-EPI)NonAf >90 (>60 ml/min/1.73 sqM) Glucose 97 (74-99) mg/dL Calcium 9.2 (8.4-10.2) mg/dL Total Bilirubin 0.8 (0.2-1.3) mg/dL AST 55 (17-59) U/L ALT 20 (4-49) U/L Alkaline Phosphatase 133 H (38-126) U/L Total Protein 8.4 H (6.3-8.2) g/dL Albumin 5.2 H (3.5-5.0) g/dL Amylase 142 H (30-110) U/L Lipase 29 (23-300) U/L Serum Alcohol 191 mg/dL Disposition Clinical Impression: Alcohol withdrawal Disposition: HOME SELF-CARE Condition: Stable Instructions (If sedation given, give patient instructions): Alcohol Withdrawal (ED) Additional Instructions: Please do follow-up to primary care physician in the next day or 2 for recheck. Return for change in mental status, hallucinations, uncontrolled vomiting, seizures, worsening or change in symptoms or other concerns. Is patient prescribed a controlled substance at d/c from ED?: No Referrals: Rosales Maurer MD [Primary Care Provider] - 1-2 days Time of Disposition: 11:34
[2022-09-11 10:50] LABS: Basophils # (A) 0.1 k/uL (0-0.2); Basophils % (A) 1 %; Eosinophils # (A) 0.1 k/uL (0-0.7); Eosinophils % (A) 1 %; HCT 41.7 % (39.0-53.0); HGB 13.6 gm/dL (13.0-17.5); Lymphocytes # (A) 1.9 k/uL (1.0-4.8); Lymphocytes % (A) 19 %; MCH 30.2 pg (25.0-35.0); MCHC 32.7 g/dL (31.0-37.0); MCV 92.2 fL (80.0-100.0); Mean Platelet Volume 7.7; Monocytes # (A) 0.2 k/uL (0-1.0); Monocytes % (A) 2 %; Neutrophils # (A) 7.4 k/uL (1.3-7.7); Neutrophils % (A) 76 %; Platelet Count 248 k/uL (150-450); RBC 4.52 m/uL (4.30-5.90); RDW 14.3 % (11.5-15.5); WBC 9.8 k/uL (3.8-10.6)
[2022-09-11 11:02] LABS: ALT 20 U/L (4-49); AST 55 U/L (17-59); African American GFR (CKD) >90 (>60 ml/min/1.73 sqM); Albumin 5.2 g/dL (3.5-5.0); Alkaline Phosphatase 133 U/L (38-126); Amylase 142 U/L (30-110); Anion Gap 23 mmol/L; Blood Urea Nitrogen 9 mg/dL (9-20); Calcium 9.2 mg/dL (8.4-10.2); Carbon Dioxide 19 mmol/L (22-30); Chloride 88 mmol/L (98-107); Glucose 97 mg/dL (74-99); Lipase 29 U/L (23-300); Non-African American GFR(CKD) >90 (>60 ml/min/1.73 sqM); Potassium 4.8 mmol/L (3.5-5.1); Sodium 130 mmol/L (137-145); Total Bilirubin 0.8 mg/dL (0.2-1.3); Total Protein 8.4 g/dL (6.3-8.2)
[2022-09-11 11:05] LABS: Alcohol 191 mg/dL
[2022-09-11] MEDS ORDERED: LORazepam 1 MG TAB PO STA ×2 (11:32→11:34)
== END 2022-09-11 11:54 | disposition home or self-care (01) ==
LOC: EC 09:26
DX: F10.239 Alcohol dependence with withdrawal, unspecified (principal)
CPT/HCPCS: 36415; 80053; 82150; 83690; 85025; 99284; 96374; 96375; 96361; 96372; G0480; J3411; J2405; 80320

== ENCOUNTER 2025-05-26 06:08 | Emergency (ER) | payer OTHER ==
[2025-05-26 06:13] VITALS: RESP 18
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
[2025-05-26] MEDS: ACET/COD 300 MG/30 MG STARTER PACK 6 TAB BTL PO STA (07:13)
[2025-05-26 07:32] VITALS: BP 126/68; PULSE 76; TEMP 98
== END 2025-05-26 07:33 | disposition home or self-care (01) ==
LOC: EC 06:08
DX: M79.641 Pain in right hand (principal); Z87.891 Personal history of nicotine dependence
CPT/HCPCS: 99283